=== PATIENT | male | born 1960 | race Caucasian/White ===

== ENCOUNTER 2019-09-27 06:12 | Inpatient (IN) | payer OTHER, MEDICARE ==
[~2019-09-27] VITALS: Ht 193 cm; Wt 168.7 kg
[~2019-09-27 06:12] MED LIST: ALDACTONE100 MG PO; ALLO300 PO; ASPI325EC PO; ATOR40TA PO; CARV25 PO; FOLI1 PO; LACT10SY PO; LOSA25 PO; LOSHYD100 PO; MORP15ER PO; NISO10ER; OMEP20ER; PANT20 PO; PREG25 PO; PROP10 PO; STIOLTO RESPIMAT4 GM INH; THERA-D2000 UNIT PO; TRAZ100; Ventolin/Prove6.7 GM INH; Vitamin B-121000 MCG PO
[2019-09-27 06:59] LABS: BASOPHILS ABSOLUTE AUTO 0.04 K/mm3 (0.00-0.23); BASOPHILS PERCENT AUTO 1 % (0-2); EOSINOPHILS ABSOLUTE AUTO 0.02 K/mm3 (0.00-0.68); EOSINOPHILS PERCENT AUTO 0 % (0-6); Hemoglobin 8.7 g/dL (13.5-17.5); IMMATURE GRAN ABSOLUTE AUTO 0.04 K/mm3 (0.00-0.10); IMMATURE GRAN PERCENT AUTO 1 % (0-1); LYMPHOCYTES ABSOLUTE AUTO 0.45 K/mm3 (0.84-5.20); LYMPHOCYTES PERCENT AUTO 6 % (21-46); MONOCYTES ABSOLUTE AUTO 0.89 K/mm3 (0.16-1.47); MONOCYTES PERCENT AUTO 13 % (4-13); Mean Corpuscular HGB 31.4 pg (26.0-34.0); Mean Corpuscular HGB Conc 32.2 g/dL (31.5-36.5); Mean Corpuscular Volume 98 fL (80-100); Mean Platelet Volume 9.1 fL (9.1-12.4); NEUTROPHILS ABSOLUTE AUTO 5.61 K/mm3 (1.96-9.15); NEUTROPHILS PERCENT AUTO 80 % (41-73); Platelet Count 227 K/mm3 (150-400); RDW Coefficient Variation 15.6 % (11.7-14.2); RDW Standard Deviation 55.5 fL (35.1-46.3); Red Blood Cell Count 2.77 M/mm3 (4.30-5.90); White Blood Cell Count 7.05 K/mm3 (4.00-11.30)
[2019-09-27 07:05] LABS: Source, Urine Clean Catch
[2019-09-27 07:10] LABS: Blood, Urine Neg (Neg); Glucose Qualitative, Urine Neg (Neg); Ketones, Urine 1+ (Neg); Leukocyte Esterase, Urine 1+ (Neg); Nitrite, Urine Neg (Neg); Protein, Urine Neg (Neg); Urobilinogen, Urine 1+ (Normal)
[2019-09-27 07:20] LABS: Alanine Aminotransfer (ALT/SGP 28 U/L (12-78); Albumin, Blood 2.7 g/dL (3.4-5.0); Albumin/Globulin Ratio 0.5 (0.8-1.8); Alk Phos 166 U/L (50-136); Anion Gap 13 mmol/L (6-16); Aspartate Aminotrans (AST/SGOT 104 U/L (12-37); Blood Urea Nitrogen 62 mg/dL (8-24); Bun/Creatinine Ratio 28.8 (12.0-20.0); CO2, Blood 14 mmol/L (21-32); Calcium, Blood 8.8 mg/dL (8.5-10.1); Chloride, Blood 105 mmol/L (98-108); Creatinine, Blood 2.15 mg/dL (0.60-1.20); Globulin, Blood 5.9 g/dL (2.2-4.0); Glomerular Filtration Rate 34 (60-); Glucose, Blood 94 mg/dL (70-99); Potassium, Blood 5.4 mmol/L (3.5-5.5); Sodium, Blood 132 mmol/L (136-145); Total Protein, Blood 8.6 g/dL (6.4-8.2); Troponin I <0.015 ng/mL (0.000-0.040)
[2019-09-27 07:22] LABS: Appearance, Urine Hazy (Clear); Bilirubin, Urine 1+ (Neg); Color, Urine Yellow (P-Yellow)
[2019-09-27 07:24] LABS: Red Blood Cells, Urine 0-2 /hpf (0-2)
[2019-09-27 07:25] LABS: Bacteria Many /hpf; Squamous Epithelial Cells Mod /hpf (Few)
[2019-09-27 08:13] LABS: PCO2 Arterial 31.3 mmHg (35-45); PO2 Arterial 67.7 mmHg (80-100); pH Blood Arterial 7.31 (7.35-7.45)
[2019-09-27 08:44] LABS: U Amphetamine Screen Not Detected; U Barbituate Screen Not Detected; U Benzodiazapine Screen Not Detected; U Buprenorphine Screen Not Detected; U Cannabinoids Screen Not Detected; U Cocaine Screen Not Detected; U Methadone Screen Not Detected; U Methamphetamine Screen Not Detected; U Opiates Screen DETECTED; U Oxycodone Screen Not Detected; U Phencyclidine Screen Not Detected; U Propoxyphene Screen Not Detected
[2019-09-27 11:01] LABS: International Normalized Ratio 1.13
--- NOTE | 2019-09-27 11:24 | NUR ---
NOTIFIED BY SALES AND MARKETING ASSISTANT THAT PT TO BE ADMITTED TO ICU 16 PCU STATUS. REPORT RECEIVED FROM AUDREY VICENTE IN ER.
[2019-09-27] MEDS ORDERED: ALBU90OI INH (14:05)
[2019-09-27] MEDS ORDERED: BIOTENE MOIST44.3 ML MT (14:07)
[2019-09-27] MEDS ORDERED: ARTIFICIAL TEA1 EACH BOTHEYES (14:09)
[2019-09-27] MEDS ORDERED: LC-445 GM (14:12)
[2019-09-27] MEDS ORDERED: MORP15ER PO (14:13)
[2019-09-27] MEDS ORDERED: OMEP20ER PO (14:15)
[2019-09-27] MEDS ORDERED: POTA10T PO (14:15)
[2019-09-27] MEDS ORDERED: B-1100 M1 PO (14:17)
[2019-09-27] MEDS ORDERED: TORSE20 PO (14:18)
[2019-09-27] MEDS ORDERED: Loratadine10 MG PO (14:20)
[2019-09-27] MEDS ORDERED: PYRI100 PO (14:20)
[2019-09-27] MEDS ORDERED: ASPI81CH PO (14:21)
[2019-09-27] MEDS ORDERED: ALBU3IS INH (15:05)
[2019-09-27] MEDS ORDERED: K-Dur 20 meq T20 MEQ PO (15:21)
[2019-09-27] MEDS ORDERED: STRIVERDI RESPIM4 GM INH (15:34)
[2019-09-27] MEDS ORDERED: NARCAN4 MG (15:36)
[2019-09-27] MEDS ORDERED: CYCL10 PO (15:37)
[2019-09-27] MEDS ORDERED: BIOTENE1000 ML PO (15:37)
--- NOTE | 2019-09-27 15:48 | NUR ---
ARRIVAL TO ICU PT ARRIVED TO ICU 11 APPROXIMATELY 1150. PT AWAKE, TALKATIVE BUT SLURRING WORDS. PT MAKING JOKES, LAUGHING. UNSURE OF DATE BUT KNOWS HIS NAME, WHERE HE IS AT AND IS FOLLOWING DIRECTIONS. PT IS POOR HISTORIAN AND IS NOT ABLE TO PROVIDE CONCRETE AND CONSISTENT ANSWERS TO QUESTIONS. PT DOES REPORT PAIN, BUT AFTER INITIAL STIMULATION OF TRANSFERRING TO BED AND GETTING PT SETTLED, PT MORE DIFFICULT TO AROUSE, AND QUICKLY FALLS ASLEEP WHEN ASKED QUESTIONS. PT LESS INTERACTIVE. HR 60'S-80'S. BP BORDERLINE, BUT IMPROVES WHEN PT STIMULATED. PT AFEBRILE. RR 12-20'S, 02 SAT 90'S ON ROOM AIR. PT DOES DESATURATE TO UPPER 80'S ON OCCASION WHEN SLEEPING. SEE FLOWSHEET/ASSESSMENTS. VERBAL CONSENT RECEIVED TO TAKE PHOTOS, PHOTOS OF WOUNDS TAKEN. PT'S MOTHER TO BEDSIDE. VERBAL CONSENT TO PROVIDE UPDATE. PT'S MOTHER, SARINA, PROVIDED PT'S MEDICATION LIST AND EXPLAINED THAT HE HASN'T TAKEN ANY OF HIS MEDS SINCE YESTERDAY AFTERNOON, AND THAT LAST NIGHT HE WAS UP ALL NIGHT AND APPEARED TO BE HALLUCINATING THROUGHOUT THE NIGHT. SARINA UNSURE OF PT'S MEDICAL HISTORY OTHER THAN HE HAS BEEN ADMITTED MULTIPLE TIMES IN THE LAST SIX MONTHS TO [facility] IN [place] FOR LEG SWELLING. RECORDS OBTAINED. MEDICATIONS UPDATED PER CO RECORDS IT IS MORE RECENT THAN PT'S MOTHER'S LIST. ADMISSION HISTORY COMPLETED BASED ON CO RECORDS.
[2019-09-27 16:59] LABS: Albumin, Blood 2.4 g/dL (3.4-5.0); Anion Gap 7 mmol/L (6-16); Blood Urea Nitrogen 62 mg/dL (8-24); Bun/Creatinine Ratio 32.8 (12.0-20.0); CO2, Blood 17 mmol/L (21-32); Calcium, Blood 8.4 mg/dL (8.5-10.1); Chloride, Blood 110 mmol/L (98-108); Creatinine, Blood 1.89 mg/dL (0.60-1.20); Glomerular Filtration Rate 39 (60-); Glucose, Blood 89 mg/dL (70-99); Phosphorus, Blood 5.3 mg/dL (2.5-4.9); Potassium, Blood 4.5 mmol/L (3.5-5.5); Sodium, Blood 134 mmol/L (136-145)
--- NOTE | 2019-09-27 18:44 | NUR ---
SUMMARY THIS AFTERNOON, PT HAS CONTINUED TO BE SLEEPY BUT HAS BEEN MUCH EASIER TO AROUSE AND MORE INTERACTIVE WITH CARE. VITALS STABLE. PT VERBALIZING NEEDS. DIURESING WELL, SEE I/O FLOWSHEET. PT HAS HAD NO COMPLAINTS OF PAIN/DISCOMFORT THIS AFTERNOON. SEE REPEAT ASSESSMENTS.
--- NOTE | 2019-09-27 19:20 | NUR ---
REPORT TO AUDREY TANNER TO ASSUME CARE
--- NOTE | 2019-09-27 21:05 | NUR ---
ASSUMED CARE OF PT, REPORT RCV'D FROM AUDREY ROCKWELL. PT ALERT AND ORIENTED SITTING UP IN BED. PT ANSWERS QUESTIONS APPROPRIATELY. SATS>90% ON RA, PT REPORTS HE USES 1L NC AT BASELINE. LUNG SOUNDS DIM BILATERAL BASES, SHALLOW BREATHING. GENERALIZED EDEMA, 3+ PITTING/WEEPING WITH BLISTERS EDEMA BILATERAL LOWER EXTREMETIES. ABDOMEN MODERATELY DISTENDED, FIRM, NO PAIN WITH PALPATION. PT URINATING USING URINAL INDEPENDENTLY. SEE FULL SHIFT ASSESSMENT
[2019-09-28 04:02] LABS: Hematocrit 25.9 % (37.0-53.0); Hemoglobin 8.5 g/dL (13.5-17.5); Mean Corpuscular HGB 31.8 pg (26.0-34.0); Mean Corpuscular HGB Conc 32.8 g/dL (31.5-36.5); Mean Corpuscular Volume 97 fL (80-100); Mean Platelet Volume 9.2 fL (9.1-12.4); Platelet Count 197 K/mm3 (150-400); RDW Coefficient Variation 15.9 % (11.7-14.2); RDW Standard Deviation 55.8 fL (35.1-46.3); Red Blood Cell Count 2.67 M/mm3 (4.30-5.90); White Blood Cell Count 6.24 K/mm3 (4.00-11.30)
[2019-09-28 04:21] LABS: Albumin, Blood 2.6 g/dL (3.4-5.0); Albumin/Globulin Ratio 0.5 (0.8-1.8); Bilirubin, Total 0.9 mg/dL (0.1-1.0); Bun/Creatinine Ratio 39.9 (12.0-20.0); Calcium, Blood 8.7 mg/dL (8.5-10.1); Creatinine, Blood 1.43 mg/dL (0.60-1.20); Globulin, Blood 5.3 g/dL (2.2-4.0); Magnesium, Blood 2.5 mg/dL (1.6-2.4); Phosphorus, Blood 4.7 mg/dL (2.5-4.9); Potassium, Blood 4.3 mmol/L (3.5-5.5); Total Protein, Blood 7.9 g/dL (6.4-8.2)
--- NOTE | 2019-09-28 07:44 | NUR ---
CARE ASSUMED REPORT RECEIVED, CARE ASSUMED AT 0700 AFTER BEDSIDE REPORT FROM AUDREY TANNER. PT ASLEEP, AROUSES EASILY FOR ASSESSMENT. REPORTS 4/10 PAIN IN LEGS, BUT DECLINES INTERVENTION. DENIES NEEDS. VITALS STABLE. SEE ASSESSMENT/FLOWSHEET.
--- NOTE | 2019-09-28 07:46 | NUR ---
SHIFT SUMMARY NO ACUTE CHANGES OVERNIGHT. PT SLEPT WELL WITH NO COMPLAINTS. 5000 ML URINARY OUTPUT. NO SIGNS OF ALCOHOL WITHDRAWAL NOTICED. VSS T/O SHIFT. BEDSIDE REPORT GIVEN TO AUDREY ROCKWELL.
--- NOTE | 2019-09-28 08:10 | NUR ---
PROVIDER COMMUNICATION DR. FRASER TO BEDSIDE FOR ASSESSMENT. NEW ORDER FOR MEDICAL FLOOR NO TELEMETRY, HEPATIC DIET AND PAIN MEDICATION. OTHERWISE, CONTINUE WITH PLAN OF CARE.
--- NOTE | 2019-09-28 11:57 | NUR ---
UPDATE PT WORKED WITH OCCUPATIONAL THERAPY THIS MORNING AND HAS BEEN RESTING SINCE. CALLING APPROPRIATELY TO USE URINAL.
--- NOTE | 2019-09-28 17:52 | NUR ---
NOTIFIED BY JONATHAN MATTA RN THAT PT TO TRANSFER TO MEDICAL FLOOR ROOM 364. REPORT GIVEN TO AUDREY MONDRAGON ON MEDICAL FLOOR. PT SITTING UP IN BED EATING DINNER AT THIS TIME, WILL TRANSFER WHEN PT FINISHED EATING.
--- NOTE | 2019-09-28 18:45 | NUR ---
SUMMARY VITALS STABLE THROUGHOUT SHIFT. THIS MORNING, PT HAVING FREQUENT, LIQUID BOWEL MOVEMENTS. AFTERNOON AND EVENING DOSE OF LACTULOSE HELD. THIS AFTERNOON SMEARS ONLY. LARGE AMOUNT OF URINARY OUTPUT, SEE I/O FLOWSHEET. LASIX DOSE DECREASED AND CHANGED TO PO PER DR. FRASER. THROUGHOUT DAY, PT ABLE TO PARTICIPATE IN TURNS AND CLEANING. PT ATE MAJORITY OF BOTH LUNCH AND DINNER. PT CALLING APPROPRIATELY FOR NEEDS, ALERT AND IN GOOD SPIRITS THROUGHOUT THE DAY. WORKED WITH PT/OT, TOOK A FEW NAPS AND SPOKE WITH MOTHER ON PHONE. DE VOLUNTEER TO BEDSIDE TO OFFER SUPPORT. PT TRANSFERRED TO ROOM 364, AUDREY MONDRAGON AT BEDSIDE.
--- NOTE | 2019-09-28 18:45 | NUR ---
PT RECEIVED FROM MOIZ, ICU. SETTLED TO BED. 1L O2 N/C. TALKING. PLEASANT. NO OTHER CONCERNS AT THIS TIME. BED IN LOW POSITION, CALL LITE IN REACH, CALLS APPROP. BED ALARM ON FOR SAFETY.
[2019-09-29 05:29] LABS: Hematocrit 25.1 % (37.0-53.0); Hemoglobin 8.1 g/dL (13.5-17.5); Mean Corpuscular HGB 31.5 pg (26.0-34.0); Mean Corpuscular HGB Conc 32.3 g/dL (31.5-36.5); Mean Corpuscular Volume 98 fL (80-100); Mean Platelet Volume 9.5 fL (9.1-12.4); Platelet Count 210 K/mm3 (150-400); RDW Coefficient Variation 16.1 % (11.7-14.2); RDW Standard Deviation 57.1 fL (35.1-46.3); Red Blood Cell Count 2.57 M/mm3 (4.30-5.90); White Blood Cell Count 5.68 K/mm3 (4.00-11.30)
[2019-09-29 06:03] LABS: Anion Gap 7 mmol/L (6-16); Blood Urea Nitrogen 37 mg/dL (8-24); CO2, Blood 20 mmol/L (21-32); Calcium, Blood 8.9 mg/dL (8.5-10.1); Chloride, Blood 112 mmol/L (98-108); Creatinine, Blood 0.95 mg/dL (0.60-1.20); Glomerular Filtration Rate >60 (60-); Glucose, Blood 78 mg/dL (70-99); Potassium, Blood 3.9 mmol/L (3.5-5.5); Sodium, Blood 139 mmol/L (136-145)
--- NOTE | 2019-09-29 07:19 | NUR ---
NOC SHIFT SUMMARY PT IS PLEASANT AND COOPERATIVE WITH CARE. AAOX4, VSS. INCONTINENT OF BOWEL AND URINE HAD MULTIPLE BM'S LAST NIGHT. TREATED FOR PAIN PER EMAR. SLEPT ON AND OFF THROUGHT THE NIGHT. NO ACUTE CHANGES. REPORT TO ONCOMING RN.
[2019-09-29] MEDS ORDERED: IBUP800 PO (11:45)
[2019-09-29] MEDS ORDERED: LIDOCAINE5 GM TOP (11:46)
[2019-09-29] MEDS ORDERED: OMEPRAZOLE20 MG PO (11:47)
[2019-09-29] MEDS ORDERED: MIRALAX17 GM PO (11:50)
[2019-09-29] MEDS ORDERED: SALONPAS GEL-P1 EACH TD (11:53)
[2019-09-29] MEDS ORDERED: SINUS RINSE RE1 EACH (11:54)
--- NOTE | 2019-09-30 07:35 | NUR ---
NOC SHIFT SUMMARY PT IS PLEASANT AND COOPERATIVE WITH CARE. HE HAS BEEN CONTINENT OF URINE AND STOOL. TREATED FOR PAIN PER EMAR TO GOOD EFFECT. VSS. WAS ABLE TO WALK TO BATHROOM FOR BM. NO ACUTE CHANGES NOTED THIS SHIFT. APPEARS IN NO ACUTE DISTRESS. REPORT TO ONCOMING RN.
[2019-09-30] MEDS ORDERED: LACT10SY PO (14:27)
[2019-09-30] MEDS ORDERED: PROP10 PO (14:27)
--- NOTE | 2019-09-30 16:30 | NUR ---
PATIENT DISCHARGE: PATIENT DISCHARGED TO HOME/ XFR TO HOME HEALTH THIS SHIFT. MEDICATION RECONCILIATION COMPLETED; MED LIST FAXED TO [facility]. DISCHARGE EDUCATION COMPLETED WITH PATIENT. PATIENT TRASNPORTED TO EXIT BY [facility] STAFF WITH WHEELCHAIR AT 1629. PATIENT DEPARTED [facility] VIA PRIVATE AUTO.
== END 2019-09-30 16:29 | disposition home health service (06) | DRG 442 ==
LOC: ER 06:12 → MEDS 11:04 → PCU 11:04 → ICUW 11:34 → MEDS 09-28 18:33
PROVIDERS: Emergency Medicine; Internal Medicine; Nurse Practitioner Acute Care; ADMIT Internal Medicine
DX: K72.00 Acute and subacute hepatic failure without coma (principal); Z68.42 Body mass index [BMI] 45.0-49.9, adult; N17.9 Acute kidney failure, unspecified; J44.9 Chronic obstructive pulmonary disease, unspecified; F17.210 Nicotine dependence, cigarettes, uncomplicated; F10.10 Alcohol abuse, uncomplicated; F43.10 Post-traumatic stress disorder, unspecified; E66.01 Morbid (severe) obesity due to excess calories; E78.5 Hyperlipidemia, unspecified; Z99.81 Dependence on supplemental oxygen; D50.9 Iron deficiency anemia, unspecified; K74.60 Unspecified cirrhosis of liver; I10 Essential (primary) hypertension
CPT/HCPCS: 36415; 36600; 70450; 71045; 76705; 80048; 80053; 80069; 81001; 82140; 82728; 82803; 83540; 83550; 83735; 83880; 84100; 84484; 84550; 85025; 85027; 85610; 87077; 87086; 87186; 90686; 93005; 93010; 94760; 96372-59; 96374; 96375; 97116; 97162; 97166; 97530; 97535; 99285-25; C9113; J1644; J1940; J2310; J3411

== ENCOUNTER 2019-10-04 01:42 | Inpatient (IN) | payer OTHER, MEDICARE ==
[~2019-10-04] VITALS: Ht 193 cm; Wt 148.4 kg
[~2019-10-04 01:42] MED LIST changes: +ALBU3IS INH; +ALBU90OI INH; +ARTIFICIAL TEA1 EACH BOTHEYES; +ASPI81CH PO; +B-1100 M1 PO; +BIOTENE MOIST44.3 ML MT; +BIOTENE1000 ML PO; +CYCL10 PO; +IBUP800 PO; +K-Dur 20 meq T20 MEQ PO; +LC-445 GM; +LIDOCAINE5 GM TOP; +Loratadine10 MG PO; +MIRALAX17 GM PO; +NARCAN4 MG; +OMEP20ER PO; +OMEPRAZOLE20 MG PO; +POTA10T PO; +PYRI100 PO; +SALONPAS GEL-P1 EACH TD; +SINUS RINSE RE1 EACH; +STRIVERDI RESPIM4 GM INH; +TORSE20 PO
[2019-10-04 01:58] LABS: PO2 Arterial 94.8 mmHg (80-100); pH Blood Arterial 7.34 (7.35-7.45)
[2019-10-04 02:19] LABS: BASOPHILS ABSOLUTE AUTO 0.06 K/mm3 (0.00-0.23); BASOPHILS PERCENT AUTO 1 % (0-2); EOSINOPHILS ABSOLUTE AUTO 0.02 K/mm3 (0.00-0.68); EOSINOPHILS PERCENT AUTO 0 % (0-6); Hematocrit 30.2 % (37.0-53.0); Hemoglobin 9.8 g/dL (13.5-17.5); IMMATURE GRAN ABSOLUTE AUTO 0.03 K/mm3 (0.00-0.10); IMMATURE GRAN PERCENT AUTO 1 % (0-1); LYMPHOCYTES ABSOLUTE AUTO 0.44 K/mm3 (0.84-5.20); LYMPHOCYTES PERCENT AUTO 7 % (21-46); MONOCYTES ABSOLUTE AUTO 0.88 K/mm3 (0.16-1.47); MONOCYTES PERCENT AUTO 14 % (4-13); Mean Corpuscular HGB 31.3 pg (26.0-34.0); Mean Corpuscular HGB Conc 32.5 g/dL (31.5-36.5); Mean Corpuscular Volume 97 fL (80-100); Mean Platelet Volume 9.4 fL (9.1-12.4); NEUTROPHILS ABSOLUTE AUTO 5.11 K/mm3 (1.96-9.15); NEUTROPHILS PERCENT AUTO 78 % (41-73); Platelet Count 185 K/mm3 (150-400); RDW Coefficient Variation 15.4 % (11.7-14.2); RDW Standard Deviation 54.3 fL (35.1-46.3); Red Blood Cell Count 3.13 M/mm3 (4.30-5.90); White Blood Cell Count 6.54 K/mm3 (4.00-11.30)
[2019-10-04 02:39] LABS: Alanine Aminotransfer (ALT/SGP 57 U/L (12-78); Albumin/Globulin Ratio 0.5 (0.8-1.8); Alk Phos 170 U/L (50-136); Anion Gap 10 mmol/L (6-16); Aspartate Aminotrans (AST/SGOT 127 U/L (12-37); Bilirubin, Total 0.9 mg/dL (0.1-1.0); Blood Urea Nitrogen 9 mg/dL (8-24); Bun/Creatinine Ratio 12.6 (12.0-20.0); CO2, Blood 17 mmol/L (21-32); Calcium, Blood 8.5 mg/dL (8.5-10.1); Chloride, Blood 103 mmol/L (98-108); Creatinine, Blood 0.72 mg/dL (0.60-1.20); Globulin, Blood 5.9 g/dL (2.2-4.0); Glomerular Filtration Rate >60 (60-); Glucose, Blood 94 mg/dL (70-99); Sodium, Blood 130 mmol/L (136-145); Total Protein, Blood 8.9 g/dL (6.4-8.2)
[2019-10-04 04:30] LABS: Adenovirus Not Detected (NOT DETECT); Bordetella pertussis Not Detected (NOT DETECT); Chlamydophila pneumoniae Not Detected (NOT DETECT); Coronavirus 229E Not Detected (NOT DETECT); Coronavirus HKU1 Not Detected (NOT DETECT); Coronavirus NL63 Not Detected (NOT DETECT); Coronavirus OC43 Not Detected (NOT DETECT); Human Metapneumovirus Not Detected (NOT DETECT); Human Rhinovirus/Enterovirus Not Detected (NOT DETECT); Influenza A Not Detected (NOT DETECT); Influenza A/2009-H1 Not Detected (NOT DETECT); Influenza A/H1 Detected (NOT DETECT); Influenza A/H3 Not Detected (NOT DETECT); Influenza B Not Detected (NOT DETECT); Mycoplasma pneumoniae Not Detected (NOT DETECT); Parainfluenza Virus 1 Not Detected (NOT DETECT); Parainfluenza Virus 2 Not Detected (NOT DETECT); Parainfluenza Virus 3 Not Detected (NOT DETECT); Parainfluenza Virus 4 Not Detected (NOT DETECT); Respiratory Syncytial Virus Not Detected (NOT DETECT)
--- NOTE | 2019-10-04 06:00 | NUR ---
RECEIVED REPORT FROM KAITY ZIEGLER RN. PT TRANSPORTED TO PCU VIA GURNEY. APPEARS DROWSY. ABLE TO ANSWER QUESTIONS, BUT SLOW TO RESPOND R/T VOCAL HOARSNESS. REPOSITIONED FOR COMFORT, HOB ELEVATED 45 DEGREES, CALL LIGHT AND POSSESSIONS IN REACH. BED ALARM ACTIVATED.
--- NOTE | 2019-10-04 07:15 | NUR ---
PT RESTING IN BED WITH HOB ELEVATED. RT AT THE BEDSIDE FOR C/O SOB, CHEST TIGHTNESS, DYSPNEA. PT NOT TOLERATING BIPAP WELL, PLACED PT ON . 02 SATS STABLE AT THIS TIME. CALL LIGHT AND POSSESSIONS IN REACH, BED IN LOW AND LOCKED POSITION WITH BED ALARM ACTIVATED. REPORTED OFF TO AUDREY SAHA.
--- NOTE | 2019-10-04 10:05 | NUR ---
ECHOCARDIOGRAM COMPLETED
[2019-10-04 14:20] LABS: Source, Urine Clean Catch
[2019-10-04 14:25] LABS: Bilirubin, Urine Neg (Neg); Blood, Urine Neg (Neg); Glucose Qualitative, Urine Neg (Neg); Ketones, Urine Neg (Neg); Leukocyte Esterase, Urine Neg (Neg); Nitrite, Urine Neg (Neg); Protein, Urine Neg (Neg); Specific Gravity, Urine 1.015 (1.003-1.022); Urobilinogen, Urine NORM (Normal)
[2019-10-04 14:41] LABS: Appearance, Urine Clear (Clear); Color, Urine Pale Yellow (P-Yellow)
--- NOTE | 2019-10-04 16:54 | NUR ---
PCU DAYSHIFT SUMMARY PATIENT REMAINS ORIENTED TO SELF. TOWARD END OF SHIFT PATIENT DID VERBALIZE THAT HE WAS IN THE HOSPITAL. PATIENT IS VERY HOARSE AND HARD TO UNDERSTAND. PATIENT HAS SLEPT SHIFT AND AWAKES ONLY TO SOUNDS AND/OR STERNAL RUBS. PATIENT WAS ABLE TO SWALLOW PILLS WITH LOTS OF STIMULATION. PATIENT IS NOW TOLERATING BIPAP AND IS TITRATED DOWN TO 3 LPM NC WITH CONTINUOUS BIOX IN PLACE. PATIENT HAS HOWEVER DECREASED HIS HEART RATE FROM 80 BEATS PER MINUTE DOWN TO 50 BEATS PER MINUTES - DR. HAMMER AWARE. PER MD HAMMER IF PATIENT CANNOT SWALLOW ORAL MEDICATIONS SHE WOULS LIKE NG TUBE PLACED FOR ORAL MEDICATION. PATIENT REQUIRES A LOT OF STIMULATION DURING MEDICATION ADMINISTRATION. PATIENT HAS BLE EDEMA 3 + WITH LOTS OF SWELLING T/O. PATIENT ABD IS FIRM AND DISTENDED - NO NAUSEA, BOWEL MOVEMENT OR EMESIS NOTED THIS SHIFT. WILL CONTINUE TO MONITOR AND REPORT TO NOC SHIFT RN.
--- NOTE | 2019-10-04 20:42 | NUR ---
DROWSY BUT responds to voice, skin breakdown in daryl area and legs, zavala flowing with clear yellow urine, hepabrin infusing into l wrist iv at rate of 14, bipap 25%, for a 96% 02, eyes 2 and 2 brisk, ls diminished, abdm soft nontender, bt+4, overnight houseperson weak, moved hand and toes but not legs or arms, formed words but very soft voice, will continue to monitor and treat, tiffanie cardic
--- NOTE | 2019-10-04 22:32 | NUR ---
2 for CIWA will record assessment if increase in symptoms noted, currently resting quietly, rousable
--- NOTE | 2019-10-04 23:50 | NUR ---
sitting up watching tv requested snack, assessed swallow, gave pudding, stayed in rm while ate first pkg
[2019-10-05 04:12] LABS: BASOPHILS ABSOLUTE AUTO 0.01 K/mm3 (0.00-0.23); BASOPHILS PERCENT AUTO 0 % (0-2); EOSINOPHILS PERCENT AUTO 0 % (0-6); Hematocrit 27.3 % (37.0-53.0); Hemoglobin 9.1 g/dL (13.5-17.5); IMMATURE GRAN ABSOLUTE AUTO 0.06 K/mm3 (0.00-0.10); IMMATURE GRAN PERCENT AUTO 1 % (0-1); LYMPHOCYTES ABSOLUTE AUTO 0.42 K/mm3 (0.84-5.20); LYMPHOCYTES PERCENT AUTO 5 % (21-46); MONOCYTES ABSOLUTE AUTO 0.62 K/mm3 (0.16-1.47); MONOCYTES PERCENT AUTO 8 % (4-13); Mean Corpuscular HGB 31.2 pg (26.0-34.0); Mean Corpuscular HGB Conc 33.3 g/dL (31.5-36.5); NEUTROPHILS ABSOLUTE AUTO 6.72 K/mm3 (1.96-9.15); NEUTROPHILS PERCENT AUTO 86 % (41-73); Platelet Count 197 K/mm3 (150-400); RDW Coefficient Variation 15.4 % (11.7-14.2); RDW Standard Deviation 52.5 fL (35.1-46.3); Red Blood Cell Count 2.92 M/mm3 (4.30-5.90); White Blood Cell Count 7.83 K/mm3 (4.00-11.30)
[2019-10-05 04:14] LABS: Mean Corpuscular Volume 94 fL (80-100)
[2019-10-05 04:29] LABS: Anion Gap 8 mmol/L (6-16); Blood Urea Nitrogen 20 mg/dL (8-24); Bun/Creatinine Ratio 29.5 (12.0-20.0); CO2, Blood 23 mmol/L (21-32); Calcium, Blood 8.4 mg/dL (8.5-10.1); Chloride, Blood 106 mmol/L (98-108); Creatinine, Blood 0.68 mg/dL (0.60-1.20); Glomerular Filtration Rate >60 (60-); Glucose, Blood 122 mg/dL (70-99); Magnesium, Blood 1.9 mg/dL (1.6-2.4); Potassium, Blood 3.5 mmol/L (3.5-5.5); Sodium, Blood 137 mmol/L (136-145)
--- NOTE | 2019-10-05 08:14 | NUR ---
Bedside report was received from cesar Devine RN. The pt is awake, alert, cheerfully conversant, and oriented. He is asking for food. Cesar states that the pt suddenly woke up early this morning and was stating he was hungry. Awaiting speech therapist Maia who said she would be right down to do a swallow evaluation on the patient. Shun denies having any needs at this time. Just finished a breathing treatment. Tachypnea noted as well as dyspnea on exertion. He is wearing his home delivery dose of oxygen at this time, and spo2 is well into the 90s range at rest. Villasenor catheter was dc'd this morning, and the patient states he is glad. States he wants to walk into the bathroom later for a BM. Asked that he not get up on his own, but wait for a staff member when he is ready to assist him as well as assess his mobility and safety. He states that he has numbness on the bottoms of his feet and has fallen a lot of times at home.
--- NOTE | 2019-10-05 10:03 | NUR ---
Ambulatory with the use of the walker and gait belt with staff assistance to the bathroom to void and have a bowel movement. AFterwards he is sitting up in the chair, and states that he feels pretty good. Mild dyspnea noted with the activity of walking to the bathroom, but overall he tolerated it very well, and appears to have good strength for movement.
--- NOTE | 2019-10-05 11:09 | NUR ---
The pt is requesting back to bed after sitting up in his chair for quite some time, at least 1 hour. He states that his feet are starting to hurt. Able to stand up and transfer using the walker, with minimal assistance. Mild dyspnea noted with the activity.
--- NOTE | 2019-10-05 14:04 | NUR ---
heparin drip discontinued at this time.
--- NOTE | 2019-10-05 17:11 | NUR ---
SUMMARY The pt has been alert, oriented, cooperative and ambulatory to the bathroom and up to the chair with mild dyspnea. Frequent, moist but non productive cough throughout the day. He is on his home dose of oxgyen today with no increased oxygen needs, nor any need to use the bipap for rescue. Appetite has been good
--- NOTE | 2019-10-05 20:17 | NUR ---
A+O, PERRL, 4 4, clear lung sounds, hr 65 nsr, abdm soft non tender, bt+4q, using urinal but walking with walker to bathroom, legs red, heels blistered and painful, scabs on both feet, o2 at 2.5 via nc, flushed 22g l wrst, and pg on r arm, vss, back and feet still painful, nonproducive cough
--- NOTE | 2019-10-06 06:17 | NUR ---
a+o, sitting up in bed watching tv, medicated and treated as prescribed, lots of snacks, nsr in 70's, walking to bathroom on own, call light in via nc at 3 L, saline locked, no adverse changes noted during shift, looking forward to going home to a snf, will share bsr with day staff and pt
--- NOTE | 2019-10-06 07:20 | NUR ---
called dr christopher r/consult for gi bleed, left message with service
[2019-10-06] MEDS ORDERED: BIOTENE MOIST44.3 ML MM (09:14)
[2019-10-06] MEDS ORDERED: FOLI1 PO (09:15)
[2019-10-06] MEDS ORDERED: Nicoderm Cq1 EAC1 TOP (09:17)
[2019-10-06] MEDS ORDERED: OSEL75CA PO ×2 (09:19→09:28)
[2019-10-06] MEDS ORDERED: Prednisone10 MG PO (09:20)
--- NOTE | 2019-10-06 09:49 | NUR ---
PT HAS ASKED TO SPEAK TO THIS RN ABOUT HER MEDICATIONS, PT IS SLEEPING WHEN CHECKED IN ON TWICE
--- NOTE | 2019-10-06 10:35 | NUR ---
PT OTD WITH ALL BELONGINGS WITH PT,PT EXPRESSED UNDERSTANDING OF DC TEACHING
== END 2019-10-06 10:40 | disposition home health service (06) | DRG 189 ==
LOC: ER 01:42 → PCU 04:59
PROVIDERS: Emergency Medicine; Internal Medicine; ADMIT Family Medicine
PROC: 5A09357 Assistance with Respiratory Ventilation, Less than 24 Consecutive Hours, Continuous Positive Airway Pressure (ICD-10-PCS; principal; 2019-10-04)
DX: J96.21 Acute and chronic respiratory failure with hypoxia (principal); I50.33 Acute on chronic diastolic (congestive) heart failure; J44.1 Chronic obstructive pulmonary disease with (acute) exacerbation; E87.2 Acidosis; E87.1 Hypo-osmolality and hyponatremia; J10.1 Influenza due to other identified influenza virus with other respiratory manifestations; I11.0 Hypertensive heart disease with heart failure; E66.01 Morbid (severe) obesity due to excess calories; F10.10 Alcohol abuse, uncomplicated; Z99.81 Dependence on supplemental oxygen; R79.89 Other specified abnormal findings of blood chemistry; F17.210 Nicotine dependence, cigarettes, uncomplicated
CPT/HCPCS: 0099U; 36415; 36416; 36600; 51702; 71045; 71260; 80048; 80053; 81003; 82803; 83735; 83880; 84484; 85025; 85730; 90686; 92610; 93005; 93010; 93306; 94640; 94660; 94760; 94762; 96374; 96375; 97116; 97162; 97165; 97535; 99285-25; A9270; C1751; G0008; J1644; J1650; J2920; J2930; Q9967

== ENCOUNTER 2020-03-14 13:27 | Inpatient (IN) | payer OTHER, MEDICARE ==
[~2020-03-14] VITALS: Ht 190.5 cm; Wt 158.8 kg
[~2020-03-14 13:27] MED LIST changes: +ALDACTONE100 M1 PO; +B-121000 MC3 PO; +BIOTENE MOIST44.3 ML MM; +CAMPHOR/MENTHOL TOP; +CARV6.25; +Klor-Con 1010 MEQ PO; +LIDOCAINE HCL120 GM TOP; +LOSARTAN POTAS100 MG PO; +MS Contin15 MG PO; +Nicoderm Cq1 EAC1 TOP; +OSEL75CA PO; +Prednisone10 MG PO; +Protonix40 M1 PO; +RIFA550T2 PO; +SERT50 PO; +VITAMIN D-32000 UNIT PO
[2020-03-14 15:03] LABS: Alanine Aminotransfer (ALT/SGP 41 U/L (12-78); Albumin, Blood 1.9 g/dL (3.4-5.0); Albumin/Globulin Ratio 0.4 (0.8-1.8); Alk Phos 111 U/L (50-136); Anion Gap 9 mmol/L (6-16); Aspartate Aminotrans (AST/SGOT 102 U/L (12-37); Bilirubin, Total 1.9 mg/dL (0.1-1.0); Blood Urea Nitrogen 14 mg/dL (8-24); Bun/Creatinine Ratio 16.4 (12.0-20.0); CO2, Blood 20 mmol/L (21-32); Calcium, Blood 8.3 mg/dL (8.5-10.1); Chloride, Blood 108 mmol/L (98-108); Creatinine, Blood 0.86 mg/dL (0.60-1.20); Globulin, Blood 5.3 g/dL (2.2-4.0); Glomerular Filtration Rate >60 (60-); Glucose, Blood 102 mg/dL (70-99); Potassium, Blood 3.4 mmol/L (3.5-5.5); Sodium, Blood 137 mmol/L (136-145); Total Protein, Blood 7.2 g/dL (6.4-8.2)
[2020-03-14 15:15] LABS: BASOPHILS ABSOLUTE AUTO 0.05 K/mm3 (0.00-0.23); BASOPHILS PERCENT AUTO 1 % (0-2); EOSINOPHILS ABSOLUTE AUTO 0.46 K/mm3 (0.00-0.68); EOSINOPHILS PERCENT AUTO 4 % (0-6); Hematocrit 24.8 % (37.0-53.0); Hemoglobin 7.6 g/dL (13.5-17.5); IMMATURE GRAN ABSOLUTE AUTO 0.06 K/mm3 (0.00-0.10); IMMATURE GRAN PERCENT AUTO 1 % (0-1); LYMPHOCYTES ABSOLUTE AUTO 0.88 K/mm3 (0.84-5.20); LYMPHOCYTES PERCENT AUTO 8 % (21-46); MONOCYTES ABSOLUTE AUTO 1.18 K/mm3 (0.16-1.47); MONOCYTES PERCENT AUTO 11 % (4-13); Mean Corpuscular HGB 27.4 pg (26.0-34.0); Mean Corpuscular HGB Conc 30.6 g/dL (31.5-36.5); Mean Corpuscular Volume 90 fL (80-100); Mean Platelet Volume 9.9 fL (9.1-12.4); NEUTROPHILS ABSOLUTE AUTO 7.83 K/mm3 (1.96-9.15); NEUTROPHILS PERCENT AUTO 75 % (41-73); Platelet Count 172 K/mm3 (150-400); RDW Coefficient Variation 23.3 % (11.7-14.2); RDW Standard Deviation 75.7 fL (35.1-46.3); Red Blood Cell Count 2.77 M/mm3 (4.30-5.90); White Blood Cell Count 10.46 K/mm3 (4.00-11.30)
--- NOTE | 2020-03-14 17:37 | NUR ---
ATTEMPT TO GET REPORT FROM E.R.
[2020-03-14 18:16] LABS: Percent Saturation 12.1 % (20.0-50.0)
--- NOTE | 2020-03-14 19:15 | NUR ---
PATIENT ARRIVES 1800 VIA CART. ROLLED TO REMOVED XTRA LINEN AND NOTED WOUNDS TO BUTTOCK AND POSTERIOR THIGHS. SMELLS AND LOOKS LIKE GANGERENE. ASKED CHANGE NURSE TO CALL SO SHE COULD LOOK AT IT. PICTURES TAKEN BUTTOCK, BILATERAL ELBOWS AND RT HEEL WHICH ALSO HAS BLACKENED SKIN. ORDERS SURGEON AND PODIATRY CONSULT. RESIDENT W/ COMES IN. ALSO COMES IN TO SEE PATIENT. PATIENT GIVEN LACTULOSE FOR SOMULENCE. PER OK TO PUT IN RECTAL TUBE IF PATIENT HAS EXCESSIVE LIQUID STOOL. REPORT GIVEN TO NIGHT RN.
--- NOTE | 2020-03-14 20:36 | NUR ---
PT off floor to xray. Neg for covid 19 rapid screen. Room air, lung soungs coarse throughout. PT obtunded does rouse to voice & able to say he is at Hospital. Multiple draining wounds rt le weeping rt heel ulcer. Cleanse site with karacleanse & applied foam dressing. Oral suction set up to maintain patent airway. [facility] PT not service connected. ETOH screen negative. HAs elevated C reactive protein. H & H low 7.6 24.8. Bilirubin elevated 1.9. Dr Maude Franklin consulted. NPO due to decreased LOC. Order to insert rectal tube due to rectal buttock wounds & lactulose to treat liver disease. PT unable to verify meds or give history. Printed problem list which include morbid obesity toxic encephalopathy & cirrhosis, impaired mobility & function. HAs PT OT eval Pallative care consult.
[2020-03-14] MEDS ORDERED: [UNRECOGNIZED DRUG - OTHER] PO (22:38)
[2020-03-14] MEDS ORDERED: LACT10SY PO (22:39)
[2020-03-14] MEDS ORDERED: Nicoderm Cq1 EAC1 TOP (22:40)
[2020-03-14] MEDS ORDERED: LIDOCAINE HCL120 GM TOP (22:40)
[2020-03-14] MEDS ORDERED: STRIVERDI RESPIM4 G1 INH (22:41)
[2020-03-14] MEDS ORDERED: ALDACTONE100 MG PO (22:42)
--- NOTE | 2020-03-15 04:35 | NUR ---
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 severely obtunded beginning of shift now more alert & talking. PT says he smokes 1 PPD tobacco & consumes ETOH daily despite cirrhosis. CIWA neg. He is on home oxygen 2 l & has PUSHPA but says he CPAP is not working , missing parts. He is max assist of 2 to 3 for toileting & bed mobility. IV lasix given late due to concern of moisute to severly damaged perianal skin. He did use urinal & voided large amts. Photodoc done on skin damage & he required skin care multiple times to complex wounds. Dr Maude Nunez consulted yesterday, attempted to reach pod. consult without success. Unable to verify home meds, faxed [facility] to obtain current med list. Oral meds held due to being severely decreased loc. Rectal tube was inserted & drains liquid brown stool. Covid test rapid negative. Applied oxygen 2 l nc, PT did not bring home CPAP
[2020-03-15 05:57] LABS: BASOPHILS ABSOLUTE AUTO 0.05 K/mm3 (0.00-0.23); BASOPHILS PERCENT AUTO 1 % (0-2); EOSINOPHILS ABSOLUTE AUTO 0.81 K/mm3 (0.00-0.68); EOSINOPHILS PERCENT AUTO 8 % (0-6); Hematocrit 29.6 % (37.0-53.0); IMMATURE GRAN ABSOLUTE AUTO 0.04 K/mm3 (0.00-0.10); IMMATURE GRAN PERCENT AUTO 0 % (0-1); LYMPHOCYTES ABSOLUTE AUTO 0.71 K/mm3 (0.84-5.20); LYMPHOCYTES PERCENT AUTO 7 % (21-46); MONOCYTES ABSOLUTE AUTO 0.72 K/mm3 (0.16-1.47); MONOCYTES PERCENT AUTO 7 % (4-13); Mean Corpuscular HGB 27.1 pg (26.0-34.0); Mean Corpuscular HGB Conc 30.4 g/dL (31.5-36.5); Mean Corpuscular Volume 89 fL (80-100); Mean Platelet Volume 9.6 fL (9.1-12.4); NEUTROPHILS ABSOLUTE AUTO 7.55 K/mm3 (1.96-9.15); NEUTROPHILS PERCENT AUTO 76 % (41-73); Platelet Count 196 K/mm3 (150-400); RDW Standard Deviation 74.7 fL (35.1-46.3); Red Blood Cell Count 3.32 M/mm3 (4.30-5.90); White Blood Cell Count 9.88 K/mm3 (4.00-11.30)
[2020-03-15 06:07] LABS: International Normalized Ratio 1.33
[2020-03-15 06:25] LABS: Anion Gap 9 mmol/L (6-16); Blood Urea Nitrogen 14 mg/dL (8-24); CO2, Blood 22 mmol/L (21-32); Calcium, Blood 8.3 mg/dL (8.5-10.1); Chloride, Blood 108 mmol/L (98-108); Creatinine, Blood 0.78 mg/dL (0.60-1.20); Glomerular Filtration Rate >60 (60-); Glucose, Blood 81 mg/dL (70-99); Sodium, Blood 139 mmol/L (136-145)
--- NOTE | 2020-03-15 09:03 | NUR ---
DR ZHENG CAME TO SEE THE PT- ORDER RECIEVED FOR CONDOM CATH. PT TO GO TO SURGERY THIS MORNING DR HAS ONE PT PRIOR TO HIM SO BEFORE LUNCH IS EXPECTED.
--- NOTE | 2020-03-15 09:57 | NUR ---
History, Chart, Medications and Allergies reviewed before start of procedure. Patient confirms NPO status and agrees with scheduled surgery. Pre-Op teaching done. Pt verbalizes understanding. PT WITH SLIGHT EXP WHEEZES. PT HAS CONDOM CATH AND RECTAL TUBE. C/O PAIN ALL OVER.
--- NOTE | 2020-03-15 12:45 | NUR ---
PT RETURNED FROM PROCEDURE STILL VERY GROGGY CONDOM CATH PATENT AND DRAINING YELLOW URINE, RECTAL TUBE STILL IN PLACE, WOUND VAC IN PLACE AND DRAINING, NC IN PLACE. PER REPORT FROM TOILET ATTENDANT PT PLACED ON 2L VIA NC D/T SATS DROPPING TO 88%. VITALS STABLE ON ARRIVAL SAT 98%.
--- NOTE | 2020-03-15 12:55 | NUR ---
PT O2 NOT IN PLACE. PLACED O2 AND TITRATED, CHECKED O2 SATS 78-80%. PT STILL VERY GROGGY. CALLED RT AND SPOKE TO SALLIE (RT). SHE CAME TO SEE THE PT O2 TITRATED TO 5L VIA NC TO MAINTAIN SATS ABOVE 90%. RECIEVED IN REPORT THIS MORNING THE PT HAS A CPAP MACHINE AT HOME, HE HAS NOT BEEN USING IT DUE TO MISSING PARTS. CALLED DR BOOTH AND RECIEVED ORDER FOR CPAP AND CONT BIOX. PLACED ORDER AND CALLED RT SALLIE, SHE CAME AND SET UP THE CPAP.
--- NOTE | 2020-03-15 13:30 | NUR ---
PT ON CPAP 5L BLEED IN SATS MAINTAINING AT 90-93%. NO S&S OF DISTRESS. WILL CTM.
--- NOTE | 2020-03-15 19:58 | NUR ---
SHIFT SUMMARY- PT WOKE AT AROUND 1700 AND WAS REFUSING HIS CPAP. GIS GEOGRAPHER CALLED FOR ASSISTANCE. PT BIOX READING IN THE 60'S PT HAD REMOVED IT AND IT WAS IN HIS PALM. PLACED ON O2 VIA NC AT 5L. PT WANTED A DRINK OF WATER. WHEN LOOKING INTO HIS THROAT IT WAS NOTED THAT THERE WAS THICK MUCUS TINGED WITH BLOOD, ORAL CARE PROVIDED AND WHEN THE BACK OF THE PT THROAT WAS SWABBED HE WAS NOTED TO NOT HAVE A GAG REFLEX. SPOKE TO DR BOOTH, SWALLOW EVAL ORDERED, NO NPO ORDER AT THIS TIME. PER DR COLEMAN TO GIVE MEDS AND FOOD IF PT IS ALERT. WHILE PT WAS ALERT GAVE HIM A SMALL CUP OF ROOM TEMPERATURE WATER WITH NO STRAW AND HE COUGHED SEVERAL TIMES AFTER EACH DRINK. THIS RN IS CONCERNED FOR RISK OF ASPIRATION. NO MORE PO OFFERED. PT WAS ROLLED AND CHANGED JUST PRIOR TO SHIFT CHANGE AND HIS SADLER (PLACED IN DAY SURGERY) WAS PATENT AND DRAINING. CALLED DR BOOTH AND RECIEVED A VERBAL ORDER TO LEAVE THE SADLER IN PLACE FOR THE PURPOSE OF WOUND HEALING. RECTAL TUBE IN PLACE NO OUTPUT. PT MAY NEED LACTULOSE ENEMA NIGHT RN AWARE OF ALL OF TODAYS EVENTS. WOUND VAC IN PLACE PATENT AND DRAINING A LITTLE SEROSANGUINOUS FLUID. PT DENIED THE NEED FOR PAIN MEDICATION UNTIL CHANGE OF SHIFT. PT WAS YELLING OUT FOR HIS "LITTLE BLUE PILL" PT STATED HE TAKES PO MORPHINE AT HOME. IV FENTANYL ORDERED Q3 PRN FOR PAIN AT THIS TIME. PASSED ALL ON IN BEDSIDE REPORT TO NIGHT RN
--- NOTE | 2020-03-15 20:17 | NUR ---
CALLED LAB PT HAD RAPID COVID TEST AT 1844 ANOTHER ORDERED PRE PROCEDURE TODAY AT 1030 LESS THAN 12 HOURS LATER OK TO DC DUPLICATE ORDER.
--- NOTE | 2020-03-15 21:39 | NUR ---
PT CURRENTLY NPO PENDING SWALLOWING STUDY VIA SPEECH THERAPY AM; Brandi FONTANEZ, DIRECT CHILL CASTER NOTIFIED WITH ORDERS FOR LR AT 100ML/HR; Brandi FONTANEZ ADVISED LOW GRADE TEMPERATURE 101.0 EARLIER AT 1999 AND CURRENT TEMPERATURE 100.3 VIA ORAL THEROMETER.
--- NOTE | 2020-03-16 02:06 | NUR ---
03/15/202044 PTS NOTED TO BE HAVING LOOSE BROWN DIARRHEA AROUND RECTAL TUBE; RECTAL TUBE BALLOON DEFLATED AND REINFLATED SLOWED BY CECIL CABALLERO RN, CHARGE NURSE WITH NO FURTHER ISSUES NOTED; THIS NURSE REINFORCED DRESSING AROUND OUTER EDGES OF WOUND VAV AT COCCYX WITH NO SUCTION LOST (125MG/HG INTERMITTENT SUCTION NOTED INTACT); PT NPO FOR THIS SHIFT PENDING SWALLOW EVALUATION IN AM; ALERT AND ORIENTED X 3 AND ABLE TO FOLLOW SIMPLE VERBAL COMMANDS.
--- NOTE | 2020-03-16 04:45 | NUR ---
SHIFT SUMMARY: 59 Y/O MORBID OBESE MALE HAD RESTLESS 1/2 SHIFT; PT C/O COCCYX WOUND PAIN RATED 8/10 WITH FENTANYL 50MG IVP X 3 GIVEN WITH RELIEF FELT; PTS WOUND VAC WAS REPLACED BY THIS NURSE AFTER ENTIRE DRESSING WAS SOILED FROM LOOSE STOOL AROUND DRESSING EDGES (NO STOOL ENTERED WOUND BED); SEE PREVIOUS NURSING NOTES REGARDING WOUND VAC; SADLER DRAINING CLEAR YELLOW FLUID; PT ALERT AND ORIENTED X 4; PT DECLINED TO WEAR C/PAP THIS SHIFT WITH O2 AT 2L/M PER NASAL CANNULA WORN ALL SHIFT; PTS RECTAL TUBE INTACT DRAINING SCANT LIQUID BROWN STOOL; PT CURRENTLY NPO PENDING SWALLOW EVALUATION TODAY VIA SPEECH THERAPY; BED ALARM APPLIED; BED LOW POSITION WITH CALL LIGHT AT SIDE.
[2020-03-16 05:45] LABS: BASOPHILS ABSOLUTE AUTO 0.02 K/mm3 (0.00-0.23); BASOPHILS PERCENT AUTO 0 % (0-2); EOSINOPHILS PERCENT AUTO 0 % (0-6); Hematocrit 25.9 % (37.0-53.0); Hemoglobin 7.9 g/dL (13.5-17.5); IMMATURE GRAN ABSOLUTE AUTO 0.04 K/mm3 (0.00-0.10); IMMATURE GRAN PERCENT AUTO 0 % (0-1); LYMPHOCYTES ABSOLUTE AUTO 0.89 K/mm3 (0.84-5.20); LYMPHOCYTES PERCENT AUTO 10 % (21-46); MONOCYTES ABSOLUTE AUTO 0.89 K/mm3 (0.16-1.47); MONOCYTES PERCENT AUTO 10 % (4-13); Mean Corpuscular HGB 27.1 pg (26.0-34.0); Mean Corpuscular HGB Conc 30.5 g/dL (31.5-36.5); Mean Corpuscular Volume 89 fL (80-100); Mean Platelet Volume 9.9 fL (9.1-12.4); NEUTROPHILS ABSOLUTE AUTO 7.53 K/mm3 (1.96-9.15); NEUTROPHILS PERCENT AUTO 80 % (41-73); Platelet Count 195 K/mm3 (150-400); RDW Coefficient Variation 23.2 % (11.7-14.2); RDW Standard Deviation 73.5 fL (35.1-46.3); Red Blood Cell Count 2.91 M/mm3 (4.30-5.90); White Blood Cell Count 9.37 K/mm3 (4.00-11.30)
[2020-03-16 06:08] LABS: Alanine Aminotransfer (ALT/SGP 39 U/L (12-78); Albumin, Blood 1.7 g/dL (3.4-5.0); Albumin/Globulin Ratio 0.3 (0.8-1.8); Alk Phos 126 U/L (50-136); Anion Gap 7 mmol/L (6-16); Aspartate Aminotrans (AST/SGOT 86 U/L (12-37); Bilirubin, Total 1.6 mg/dL (0.1-1.0); Blood Urea Nitrogen 16 mg/dL (8-24); Bun/Creatinine Ratio 20.8 (12.0-20.0); CO2, Blood 24 mmol/L (21-32); Chloride, Blood 111 mmol/L (98-108); Creatinine, Blood 0.77 mg/dL (0.60-1.20); Globulin, Blood 5.3 g/dL (2.2-4.0); Glomerular Filtration Rate >60 (60-); Glucose, Blood 89 mg/dL (70-99); Sodium, Blood 142 mmol/L (136-145)
--- NOTE | 2020-03-16 19:19 | NUR ---
SHIFT SUMMARY- PT HAS BEEN ALERT AND ORIENTED TO SELF, PERSON AND PLACE. PT RECTAL TUBE WAS CHANGED ABOUT MID DAY THE PREVIOUS ONE WAS CLOGGED WITH PASTY STOOL. SPOKE TO DR BOOTH AND SHE IS AWARE AND THEY STILL WANT THE RECTAL TUBE IN PLACE. TUBE CONTINUED TO LEAK AND CAUSE THE NEED FOR WOUND VAC CHANGES, CALLED DR ZHENG HE STATED OK TO PLACE A WET TO DRY DRESSING HOWEVER THE PT WOULD BENIFIT FAR MORE FROM A WOUND VAC WITH A GOOD SEAL IF IT WAS POSSIBLE. FOUND THAT FREQUENT IRRIGATION OF THE RECTAL TUBE ALLOWED FOR LESS LEAKAGE AND MORE OUTPUT FROM THE RECTAL TUBE, NEARLY 2.5 LITERS OF STOOL OUT SINCE TUBE WAS CHANGED. FLUSHING 150 ML PER FLUSH APPROXIMATELY EVERY 30 MINUTES. SEEMS THAT FLUSHES COULD BE SPACED OUT FARTHER HOWEVER THE RESULT OF A CLOGGED RECTAL TUBE MADE FOR A STOOL MESS THAT CAN NOT BE DESCRIBED IN WORDS. STAFF SPENT THE FIRST 5 HOURS OF THE DAY IN THE ROOM DOING BED CHANGES, WOUND VAC CHANGES, RECTAL TUBE CHANGES AND FLUSHES. PT STOOL IS THINNING DOWN HOWEVER IT IS STILL PASTY AT TIMES. CHANGED THE RECTAL TUBE BAG AND FLUSHED THE TUBE WITH THE ASSISTANCE OF NIGHT RN. PT LAYING ON RIGHT SIDE RECTAL TUBE PATENT AND DRAINING BROWN STOOL. SADLER CATH IN PLACE PATENT AND DRAINING YELLOW URINE. IV SL AT THIS TIME. PT HAD A SWALLOW EVAL ALLOWING FOR PILLS WHOLE WITH APPLE SAUCE. NO THIN LIQUIDS!
--- NOTE | 2020-03-16 23:40 | NUR ---
2215 PTS ENTIRE WOUND DRESSING REPLACED WITH WET TO DRY DRESSING AND HELD IN PLACE WITH HOSPITAL MESH PANTIES X 3 ASSIST; RECTAL TUBE IRRIGATED WITH 200 ML TAP WATER WITH BROWN FLUID NOTED IN BAG
--- NOTE | 2020-03-17 03:30 | NUR ---
SHIFT SUMMARY: 59 Y/O OBESE MALE RESTED COMFORTABLY ALL SHIFT; PTS RECTAL TUBE DRAINING LIQUID BROWN STOOL (THIS NURSE IRRIGATED TUBE Q2H WITH 200ML WARM TAP WATER) WITH DECREASED LEAKAGE NOTED AROUND TUBE INSERTION SITE AT ANUS; PTS COCCYX WOUND CURRENTLY HAS WET TO DRY DRESSING PACKING WITH MESH PANTIES HOLDING DRESSING INTACT; PTS SKIN SURROUNDING WOUND IS RED AND EXCORIATED; PT HAD EPISODE X 1 WHERE PATIENT WAS FOUND SITTING SIDE OF BED AFTER BED ALARM SOUNDED OFF AND WAS SLIGHTLY CONFUSED AND UNABLE TO FIGURE OUT WHERE HE WAS AT, PT WAS REORIENTATED AND ASSISTED BACK TO BED X 2 ASSIST; PT C/O COCCYX WOUND PAIN RATED 8/10 WITH FENTANYL 50MCG IVP GIVEN X 2 WITH RELIEF FELT; SADLER DRAINING CLEAR YELLOW FLUID ATTACHED TO RIGHT UPPER THIGH STAT LOCK; PT WEARING O2 AT 2L/M PER NASAL CANNULA WITH CONTINUOUS BIOX O2 SATS AVERAGING 94%; PTS RIGHT HEEL WOUND DRESSING DRY AND INTACT; BED ALARM APPLIED, BED LOW POSITION WITH CALL LIGHT AT SIDE.
[2020-03-17 05:07] LABS: BASOPHILS ABSOLUTE AUTO 0.05 K/mm3 (0.00-0.23); BASOPHILS PERCENT AUTO 1 % (0-2); EOSINOPHILS ABSOLUTE AUTO 0.27 K/mm3 (0.00-0.68); EOSINOPHILS PERCENT AUTO 3 % (0-6); Hematocrit 26.9 % (37.0-53.0); Hemoglobin 8.1 g/dL (13.5-17.5); IMMATURE GRAN ABSOLUTE AUTO 0.03 K/mm3 (0.00-0.10); IMMATURE GRAN PERCENT AUTO 0 % (0-1); LYMPHOCYTES ABSOLUTE AUTO 1.03 K/mm3 (0.84-5.20); LYMPHOCYTES PERCENT AUTO 13 % (21-46); MONOCYTES ABSOLUTE AUTO 0.95 K/mm3 (0.16-1.47); MONOCYTES PERCENT AUTO 12 % (4-13); Mean Corpuscular HGB 27.2 pg (26.0-34.0); Mean Corpuscular HGB Conc 30.1 g/dL (31.5-36.5); Mean Corpuscular Volume 90 fL (80-100); NEUTROPHILS ABSOLUTE AUTO 5.81 K/mm3 (1.96-9.15); NEUTROPHILS PERCENT AUTO 71 % (41-73); Platelet Count 196 K/mm3 (150-400); RDW Coefficient Variation 23.5 % (11.7-14.2); RDW Standard Deviation 76.8 fL (35.1-46.3); Red Blood Cell Count 2.98 M/mm3 (4.30-5.90); White Blood Cell Count 8.14 K/mm3 (4.00-11.30)
[2020-03-17 09:58] LABS: Anion Gap 6 mmol/L (6-16); Blood Urea Nitrogen 14 mg/dL (8-24); Bun/Creatinine Ratio 18.6 (12.0-20.0); CO2, Blood 29 mmol/L (21-32); Calcium, Blood 8.3 mg/dL (8.5-10.1); Chloride, Blood 110 mmol/L (98-108); Creatinine, Blood 0.75 mg/dL (0.60-1.20); Glomerular Filtration Rate >60 (60-); Glucose, Blood 84 mg/dL (70-99); Potassium, Blood 2.8 mmol/L (3.5-5.5); Sodium, Blood 145 mmol/L (136-145)
--- NOTE | 2020-03-17 16:45 | NUR ---
SHIFT SUMMARY PATIENT MEDICATED X3 FOR PAIN THIS SHIFT. PATIENT DENIES NAUSEA AND SHORTNESS OF BREATH. PATIENT WORKED WITH PT TODAY, ABLE TO STAND BRIEFLY AND SIT ON SIDE OF BED. PATIENT REQUIRES 2-3 STAFF FOR WOUND CARE AND BED REPOSITION. WOUND VAC REPLACED BY AYANA RN EARLY THIS MORNING. WOUND VAC REPLACED AGAIN BY DAY SHIFT AFTER BREAKFAST. WOUND VAC FAILED AGAIN IN LATE AFTERNOON. DRESSING REPLACED WITH WET TO DRY DRESSING. SADLER AND RECTAL TUBE PATENT AND DRAINING. CALL LIGHT IN REACH.
--- NOTE | 2020-03-18 04:47 | NUR ---
SHIFT SUMMARY PT HAS RESTED OFF AND ON. HE IS A/O TO SELF, PLACE, PERSON, PRESIDENT AND FOLLOWING DIRECTIONS. UNABLE TO TELL ME THE YEAR. HOWEVER, ANSWERS ALL OF MY OTHER QUESTIONS APPROPRIATELY. RECTAL TUBE IN PLACE WITH ADEQUATE OUTPUT. LACTULOSE CONTINUED PER ORDERS. SADLER PATENT AND DRAINING. PT HAS INTENSE THRIST AND HAS REQUESTED SEVERAL CUPS OF THICKNED LIQUIDS THIS SHIFT. WOUND CARE PERFORMED THIS SHIFT ON PT COCCYX AND RIGHT HEEL. COCCYX PRODUCES LARGE AMOUNTS OF SEROSANGUINEOUS DRAINAGE. WET TO DRY DRESSING PLACED. PT MEDICATED FOR PAIN X2 THIS SHIFT WITH EFFECT. NO ACUTE CHANGES IN PT ASSESSMENT.
[2020-03-18 05:54] LABS: Anion Gap 6 mmol/L (6-16); Blood Urea Nitrogen 11 mg/dL (8-24); Bun/Creatinine Ratio 15.4 (12.0-20.0); CO2, Blood 29 mmol/L (21-32); Calcium, Blood 8.4 mg/dL (8.5-10.1); Chloride, Blood 109 mmol/L (98-108); Creatinine, Blood 0.72 mg/dL (0.60-1.20); Glomerular Filtration Rate >60 (60-); Glucose, Blood 97 mg/dL (70-99); Sodium, Blood 144 mmol/L (136-145)
--- NOTE | 2020-03-18 17:20 | NUR ---
SHIFT SUMMARY PATIENT MEDICATED X2 FOR PAIN THIS SHIFT. DENIES NAUSEA AND SHORTNESS OF BREATH. PATIENT REPOSITIONED Q2 IN BED AND FOR DRESSING CHANGES. COCCYX DRESSING CHANGED X2 THIS SHIFT AND RIGHT HEEL X1. RECTAL TUBE AND SADLER PATENT AND DRAINING. CALL LIGHT IN REACH.
--- NOTE | 2020-03-19 05:05 | NUR ---
SHIFT SUMMARY PT HAS RESTED OFF AND ON THIS SHIFT. CHANGED DRESSING ON COCCYX X1 THIS SHIFT. PT REPOSITIONED FREQUENTLY T/O SHIFT. VITALS ARE STABLE. RECTAL TUBE AND SADLER PATENT AND DRAINING. NO ACUTE CHANGES THIS SHIFT.
[2020-03-19 05:55] LABS: Anion Gap 4 mmol/L (6-16); Blood Urea Nitrogen 10 mg/dL (8-24); Bun/Creatinine Ratio 14.4 (12.0-20.0); CO2, Blood 31 mmol/L (21-32); Chloride, Blood 101 mmol/L (98-108); Creatinine, Blood 0.69 mg/dL (0.60-1.20); Glomerular Filtration Rate >60 (60-); Glucose, Blood 96 mg/dL (70-99); Magnesium, Blood 1.8 mg/dL (1.6-2.4); Potassium, Blood 3.2 mmol/L (3.5-5.5); Sodium, Blood 136 mmol/L (136-145)
--- NOTE | 2020-03-19 16:34 | NUR ---
SHIFT SUMMARY- PT HAS HAD 2 WOUND DRESSING CHANGES AND A 3RD WILL BE DONE PRIOR TO END OF SHIFT. PT WOUND LOOKS WORSE WHEN COMPARED TO END OF SHIFT THURSDAY HOWEVER IT SEEMS A LITTLE BETTER SINCE START OF SHIFT. THE PT HAS ORDERS FOR WET TO DRY DRESSINGS, WET GAUZE SHOULD BE PLACED IN THE WOUND BED OF THE DEBRIDED AREA AND COVERED WITH DRY GAUZE THEN AN ABD PAD OVER THE TOP AND SECURED WITH SOFT CLOTH TAPE (TAPE ONLY ON GOOD SKIN), EXUDRY PLACED TO WICK MOISTURE FROM THE EXCORIATED AREA OF THE LEG AROUND THE WOUND DRESSING CAN BE SECUREDTO THE EXUDRY AND THE EXUDRY CAN BE SECURED WITH SOFT CLOTH TAPE TO THE GOOD SKIN. THIS METHOD SEEMS TO BE IMPROVING THE SKIN T/O THE DAY TODAY. SPOKE TO HABILITATION TRAINING SPECIALIST SALLY AND ANOTHER RN FAMILLIAR WITH THE PT WOUNDS RN KEIKO Nicolas. PT HAS A RECTAL TUBE AT THIS TIME BUT D/T WOUND PLACEMENT THE PT WOULD POSSIBLY BENNIFIT FROM A COLOSTOMY, SPOKE TO DR RESENDIZ ABOUT THIS POSSIBILITY AND HE STATED HE WILL SPEAK TO DR ZHENG (GEN SURG). AT THIS TIME THE PT LACTULOSE IS CONTINUEING AT THE LOWER DOSE AND THE OUTPUT OF THE RECTAL TUBE IS MORE OF A THIN PASTE THAT IS OCCASSIONALLY THICKER. WILL PASS ALL OF THIS ON IN REPORT TO NIGHT RN. PT IS A Q2 TURN T/O THE DAY AND NIGHT TO PREVENT FURTHER WOUNDS.
--- NOTE | 2020-03-19 19:05 | NUR ---
ASSUMED CARE RECEIVED REPORT FROM AUDREY VELASCO. ASSUMED CARE OF PT. RESTING COMFORTABLY AT THIS TIME, NO S/S ACUTE DISTRESS NOTED. DRSGS AND RECTAL TUBE INTACT. DENIES NEEDS. CALL LIGHT, POSSESSIONS IN REACH. WILL CONTINUE TO MONITOR.
--- NOTE | 2020-03-20 04:35 | NUR ---
SHIFT SUMMARY PT RESTING COMFORTABLY AT THIS TIME, NO S/S ACUTE DISTRESS NOTED. TOLERATED CPAP FOR A FEW HOURS T/O NIGHT, SATS STABLE ON NASAL CANNULA. PAIN MANAGED WITH MEDS PER EMAR AND REPOSITIONING PT TOLERATED. DENIES NEEDS AT THIS TIME, CALL LIGHT, POSSESSIONS IN REACH. BED IN LOWEST POSITION. WILL CONTINUE TO MONITOR UNTIL DAY RN ASSUMES CARE.
[2020-03-20 05:26] LABS: Anion Gap 5 mmol/L (6-16); Blood Urea Nitrogen 10 mg/dL (8-24); Bun/Creatinine Ratio 16.4 (12.0-20.0); CO2, Blood 30 mmol/L (21-32); Calcium, Blood 7.9 mg/dL (8.5-10.1); Chloride, Blood 99 mmol/L (98-108); Creatinine, Blood 0.61 mg/dL (0.60-1.20); Glomerular Filtration Rate >60 (60-); Glucose, Blood 105 mg/dL (70-99); Potassium, Blood 3.1 mmol/L (3.5-5.5); Sodium, Blood 134 mmol/L (136-145)
--- NOTE | 2020-03-20 08:25 | NUR ---
ASSUMED CARE OF PT- REPORT COMPLETED WITH YAMILET AMBRIZ. PT WOUND DRESSING CHANGED X1 LAST NIGHT. DRESSING CHANGE COMPLETED 729 WITH AUDREY ADAM. PT REPOSITIONED TO LEFT SIDE LYING, RECTAL TUBE FLUSHED WITH 50ML WATER AND IS PATENT AND DRAINING BROWN STOOL AT THIS TIME. CATH CARE COMPLETED SOME DISCHARGE NOTED AT THE INSERTION POINT. SADLER PATENT AND DRAINING DARK URINE. PT ALERT AND COOPERATIVE WITH CARE THIS MORNING.
--- NOTE | 2020-03-20 15:24 | NUR ---
Assumed care of patient from Princess. Patient currently resting with eyes closed, resp. E/UL. No distress noted at this time. Call light in reach.
--- NOTE | 2020-03-20 18:23 | NUR ---
Patient sitting with head of bed elevated to 90 degrees, eating dinner. Denies c/o or needs at this time. Watching TV. Rectal tube has been flushed and is draining well. Dressing to buttocks C/D/I. Will report to oncoming shift.
[2020-03-21 05:26] LABS: Anion Gap 4 mmol/L (6-16); Blood Urea Nitrogen 11 mg/dL (8-24); Bun/Creatinine Ratio 18.5 (12.0-20.0); CO2, Blood 31 mmol/L (21-32); Calcium, Blood 8.1 mg/dL (8.5-10.1); Chloride, Blood 98 mmol/L (98-108); Creatinine, Blood 0.59 mg/dL (0.60-1.20); Glomerular Filtration Rate >60 (60-); Glucose, Blood 115 mg/dL (70-99); Potassium, Blood 3.2 mmol/L (3.5-5.5); Sodium, Blood 133 mmol/L (136-145)
--- NOTE | 2020-03-21 06:30 | NUR ---
PT RECTAL TUBE CHANGED D/T PRIOR RECTAL TUBE BEING PULLED AFTER PT REPOSITIONED IN BED. PT TOLERATED WELL.
[2020-03-21] MEDS ORDERED: CARV25 PO (09:17)
[2020-03-21] MEDS ORDERED: CYCL10 PO (09:19)
[2020-03-21] MEDS ORDERED: LOSA25 PO (09:22)
[2020-03-21] MEDS ORDERED: MORP15ER PO (09:23)
[2020-03-21] MEDS ORDERED: Hair, Skin & N1 EACH PO (09:24)
[2020-03-21] MEDS ORDERED: NARCAN4 M1 (09:25)
[2020-03-21] MEDS ORDERED: PANT20 PO (09:27)
[2020-03-21] MEDS ORDERED: PREG75 PO (09:28)
[2020-03-21] MEDS ORDERED: TORSE20 PO (09:29)
[2020-03-21] MEDS ORDERED: ASPI81CH PO (09:29)
--- NOTE | 2020-03-21 17:17 | NUR ---
SUMMARY PT RESTING QUIETLY IN BED, WAKES EASILY, [facility], PT HAS WORKED WITH PT/OT, ABLE TO STAND BRIEFLY AT THE BEDSIDE, PT HAS DANGLED INDEPENDENTLY SEVERAL TIMES TODAY, RECTAL TUBE IN PLACE TO KEEP COCCYX DRESSING CLEAN DRY AND INTACT, FLUSHED SEVERAL TIMES TO KEEP PATENT, PT HAS BEEN PLEASANT AND COOPERATIVE WITH CARE, VSS, NO ACUTE CHANGES, WILL CONT TO MONITOR
--- NOTE | 2020-03-22 05:02 | NUR ---
SHIFT SUMMARY- PT. VERY PAINFUL DURING THE NIGHT. MEDICATED PER EMAR WITH MINIMAL RELIEF. NOTIFIED HOSPITALIST FERN FONTANEZ SKI LIFT MECHANIC, RECEIVED ORDER FOR DILAUDID. ADMINISTERED TO PT. PER ORDER, REPORTED GOOD EFFECT. PERFORMED DSG CHANGE PER ORDER, TOLERATED WELL. PT. APPEARED TO HAVE RESTED COMFORTABLY THE REST OF THE SHIFT. NO APPARENT DISTRESS NOTED. O2 VIA NC AND BIOX IN PLACE FOR COMFORT WELL MONITORING. VSS. CALL LIGHT WITHIN REACH AND SIDE RAILS UPX2. WILL CONT TO MONITOR.
[2020-03-22 06:06] LABS: Anion Gap 4 mmol/L (6-16); Blood Urea Nitrogen 13 mg/dL (8-24); Bun/Creatinine Ratio 19.4 (12.0-20.0); CO2, Blood 33 mmol/L (21-32); Calcium, Blood 8.3 mg/dL (8.5-10.1); Chloride, Blood 98 mmol/L (98-108); Creatinine, Blood 0.67 mg/dL (0.60-1.20); Glomerular Filtration Rate >60 (60-); Glucose, Blood 97 mg/dL (70-99); Potassium, Blood 3.6 mmol/L (3.5-5.5); Sodium, Blood 135 mmol/L (136-145)
[2020-03-22] MEDS ORDERED: JUVEN PACKET1 EAC3 PO (11:00)
[2020-03-22] MEDS ORDERED: POTCHL20ER PO (11:01)
[2020-03-22] MEDS ORDERED: NYSTOP15 GM TOP (11:01)
[2020-03-22] MEDS ORDERED: ROXYBOND5 MG PO (11:02)
--- NOTE | 2020-03-22 11:16 | NUR ---
DISCHARGE PT BEING DISCHARGED TO THE [facility], TRANSPORTATION SET UP BY CARE MANAGEMENT, PT IN AGREEMENT TO GO, CURRENTLY WAITING FOR TRANSPORT
--- NOTE | 2020-03-22 11:45 | NUR ---
SUMMARY/DISCHARGE REPORT CALLED TO GREGORIO AT THE [facility], PT TAKEN VIA [facility]
== END 2020-03-22 11:40 | DRG 423 ==
LOC: ER 13:27 → ERHOLD 16:57 → MEDS 16:57
PROVIDERS: Emergency Medicine; Internal Medicine; Surgery; ADMIT Internal Medicine
PROC: 0JB70ZZ Excision of Back Subcutaneous Tissue and Fascia, Open Approach (ICD-10-PCS; principal; 2020-03-15 10:00)
PROC: 0HBMXZZ Excision of Right Foot Skin, External Approach (ICD-10-PCS; 2020-03-15 10:00)
DX: K72.00 Acute and subacute hepatic failure without coma (principal); L89.153 Pressure ulcer of sacral region, stage 3; L89.613 Pressure ulcer of right heel, stage 3; Z68.41 Body mass index [BMI] 40.0-44.9, adult; J96.11 Chronic respiratory failure with hypoxia; I96 Gangrene, not elsewhere classified; Z20.828 Contact with and (suspected) exposure to other viral communicable diseases; F17.210 Nicotine dependence, cigarettes, uncomplicated; J44.9 Chronic obstructive pulmonary disease, unspecified; I27.20 Pulmonary hypertension, unspecified; Z99.81 Dependence on supplemental oxygen; F10.20 Alcohol dependence, uncomplicated; E87.6 Hypokalemia; E66.01 Morbid (severe) obesity due to excess calories; K70.31 Alcoholic cirrhosis of liver with ascites; G47.33 Obstructive sleep apnea (adult) (pediatric); F11.90 Opioid use, unspecified, uncomplicated
CPT/HCPCS: 36415; 72220; 73620; 80048; 80053; 82140; 82607; 82728; 82746; 83540; 83550; 83605; 83735; 85025; 85610; 85651; 86140; 92526; 92610; 94640; 94660; 94762; 97110; 97112; 97162; 97166; 97530; 99285; A9270; C9113; G0480; J0690; J1100; J1170; J1940; J2250; J2370; J2405; J2550; J2704; J3010; J7120; U0002

== ENCOUNTER 2020-07-15 19:14 | Emergency (ER) | payer OTHER, MEDICARE ==
[~2020-07-15] VITALS: Ht 193 cm; Wt 122.5 kg
[~2020-07-15 19:14] MED LIST changes: +Hair, Skin & N1 EACH PO; +JUVEN PACKET1 EAC3 PO; +NARCAN4 M1; +NYSTOP15 GM TOP; +POTCHL20ER PO; +PREG75 PO; +ROXYBOND5 MG PO; +STRIVERDI RESPIM4 G1 INH; +[UNRECOGNIZED DRUG - OTHER] PO
== END 2020-07-15 20:57 | disposition home or self-care (01) ==
LOC: ER 19:14
DX: S91.312A Laceration without foreign body, left foot, initial encounter (principal); I25.10 Atherosclerotic heart disease of native coronary artery without angina pectoris; J44.9 Chronic obstructive pulmonary disease, unspecified; I11.0 Hypertensive heart disease with heart failure; I50.9 Heart failure, unspecified; E78.5 Hyperlipidemia, unspecified; F17.210 Nicotine dependence, cigarettes, uncomplicated; Z88.5 Allergy status to narcotic agent; Z79.899 Other long term (current) drug therapy; Z88.8 Allergy status to other drugs, medicaments and biological substances; Z88.6 Allergy status to analgesic agent; W26.0XXA Contact with knife, initial encounter
CPT/HCPCS: 12001; 99283-25

== ENCOUNTER 2020-10-17 12:14 | Inpatient (IN) | payer OTHER, MEDICARE ==
[~2020-10-17] VITALS: Ht 193 cm; Wt 126.8 kg
[2020-10-17 13:37] LABS: BASOPHILS ABSOLUTE AUTO 0.04 K/mm3 (0.00-0.23); BASOPHILS PERCENT AUTO 0 % (0-2); EOSINOPHILS PERCENT AUTO 0 % (0-6); Hematocrit 44.1 % (37.0-53.0); Hemoglobin 15.8 g/dL (13.5-17.5); IMMATURE GRAN ABSOLUTE AUTO 0.07 K/mm3 (0.00-0.10); IMMATURE GRAN PERCENT AUTO 1 % (0-1); LYMPHOCYTES ABSOLUTE AUTO 0.67 K/mm3 (0.84-5.20); LYMPHOCYTES PERCENT AUTO 6 % (21-46); MONOCYTES ABSOLUTE AUTO 1.52 K/mm3 (0.16-1.47); MONOCYTES PERCENT AUTO 13 % (4-13); Mean Corpuscular HGB 35.7 pg (26.0-34.0); Mean Corpuscular HGB Conc 35.8 g/dL (31.5-36.5); Mean Corpuscular Volume 100 fL (80-100); Mean Platelet Volume 9.8 fL (9.1-12.4); NEUTROPHILS ABSOLUTE AUTO 9.86 K/mm3 (1.96-9.15); NEUTROPHILS PERCENT AUTO 81 % (41-73); Platelet Count 96 K/mm3 (150-400); RDW Coefficient Variation 13.6 % (11.7-14.2); RDW Standard Deviation 50.3 fL (35.1-46.3); Red Blood Cell Count 4.42 M/mm3 (4.30-5.90); White Blood Cell Count 12.16 K/mm3 (4.00-11.30)
[2020-10-17 14:07] LABS: Alanine Aminotransfer (ALT/SGP 31 U/L (12-78); Albumin, Blood 2.8 g/dL (3.4-5.0); Albumin/Globulin Ratio 0.5 (0.8-1.8); Alk Phos 229 U/L (50-136); Anion Gap 9 mmol/L (6-16); Aspartate Aminotrans (AST/SGOT 60 U/L (12-37); Bilirubin, Total 3.6 mg/dL (0.1-1.0); Blood Urea Nitrogen 8 mg/dL (8-24); Bun/Creatinine Ratio 14.1 (12.0-20.0); CO2, Blood 24 mmol/L (21-32); Calcium, Blood 8.6 mg/dL (8.5-10.1); Chloride, Blood 102 mmol/L (98-108); Creatinine, Blood 0.57 mg/dL (0.60-1.20); Globulin, Blood 5.5 g/dL (2.2-4.0); Glomerular Filtration Rate >60 (60-); Glucose, Blood 111 mg/dL (70-99); Potassium, Blood 3.4 mmol/L (3.5-5.5); Sodium, Blood 135 mmol/L (136-145); Total Protein, Blood 8.3 g/dL (6.4-8.2); Troponin I 0.052 ng/mL (0.000-0.040)
[2020-10-17 14:31] LABS: Influenza A, PCR NEGATIVE (NEGATIVE); Influenza B, PCR NEGATIVE (NEGATIVE); Resp Syncytial Virus, PCR NEGATIVE (NEGATIVE); SARS-Cov-2 (COVID-19) PCR, MMC NEGATIVE (NEGATIVE)
[2020-10-17 15:12] LABS: PCO2 Arterial 32.1 mmHg (35-45); PO2 Arterial 81.8 mmHg (80-100); pH Blood Arterial 7.47 (7.35-7.45)
[2020-10-17 15:40] LABS: Source, Urine Clean Catch
[2020-10-17] MEDS ORDERED: ALLO300 PO (15:44)
[2020-10-17] MEDS ORDERED: FURO40 PO (15:44)
[2020-10-17] MEDS ORDERED: GENTAMICIN 0.1% TOP (15:45)
[2020-10-17] MEDS ORDERED: LORA10ER PO (15:45)
[2020-10-17] MEDS ORDERED: MORPHINE SULFAT15 M1 PO (15:46)
[2020-10-17] MEDS ORDERED: MORP15ER PO (15:46)
[2020-10-17] MEDS ORDERED: Hair, Skin & N1 EACH PO (15:46)
[2020-10-17] MEDS ORDERED: OMEP20ER PO (15:47)
[2020-10-17] MEDS ORDERED: POTA10T PO (15:47)
[2020-10-17] MEDS ORDERED: NICOTINE LOZENGE2 MG MM (15:47)
[2020-10-17] MEDS ORDERED: PROP120ER PO (15:48)
[2020-10-17 15:52] LABS: Appearance, Urine Clear (Clear); Blood, Urine 3+ (Neg); Color, Urine Amber (P-Yellow); Glucose Qualitative, Urine Neg (Neg); Ketones, Urine 2+ (Neg); Leukocyte Esterase, Urine 1+ (Neg); Nitrite, Urine Neg (Neg); Protein, Urine 3+ (Neg); Specific Gravity, Urine 1.015 (1.003-1.022); Urobilinogen, Urine 3+ (Normal); pH, Urine 6.5 (5.0-8.0)
[2020-10-17 16:02] LABS: Bilirubin, Urine 2+ (Neg)
[2020-10-17 16:03] LABS: Bacteria Few /hpf; Squamous Epithelial Cells Few /hpf (Few)
--- NOTE | 2020-10-17 18:40 | NUR ---
TRANSFER TO PCU: PATIENT TRANSFERED FROM ER TO PCU AT 1710 VIA STRETCHER. ABLE TO STAND AND MOVE FROM STRETCHER TO BED. SADLER CATH IN PLACE DRAINING TO GRAVITY CLEAR, FABBY URINE. ON 6L O2 VIA NASAL CANNULA SATING ABOVE 92%. BIPAP ON STANDY AT BEDSIDE. VITAL SIGNS STABLE. PT COMPLAINS OF CHRONIC PAIN, MORPHINE SCHEDULED VIA EMAR. BILATERAL LOWER EXTREMITIES SEVERE EDEMA WITH WOUND CARE BANDAGES THAT PATIENT STATES HAVE BEEN ON FEET FOR "TWO WEEKS". BANDAGES REMOVED. COCCYX WOUND NOTED ON ADMISSION. PT STATES HE HAS BEEN DEALING WITH IT A LONG TIME. PICTURES TO BE TAKEN AND PLACED IN CHART. PT EXPLAINED STORY OF BEING IN [facility] FOR "3 MONTHS BECAUSE OF THE WOUND ON MY BUTT". PT STATES HE SEE WOUND CARE FOR HELP AND HIS MOM HELPS HIM AT HOME. LUNGS SOUND COARSE WITH CRACKLES. FULL LIQUID DIET. TELE SHOWING SINUS TACH WITH HR 110. CALL LIGHT IN REACH. EDUCATED ON FALL PREVENTION, ROOM AND HOW TO USE CALL LIGHT. BED IN LOW LOCKED POSITION. WILL CONTINUE TO MONITOR AND REPORT OFF.
[2020-10-18 04:49] LABS: Alanine Aminotransfer (ALT/SGP 23 U/L (12-78); Albumin, Blood 2.3 g/dL (3.4-5.0); Albumin/Globulin Ratio 0.5 (0.8-1.8); Alk Phos 189 U/L (50-136); Anion Gap 9 mmol/L (6-16); Aspartate Aminotrans (AST/SGOT 50 U/L (12-37); Bilirubin, Total 4.5 mg/dL (0.1-1.0); Blood Urea Nitrogen 13 mg/dL (8-24); Bun/Creatinine Ratio 20.2 (12.0-20.0); CO2, Blood 26 mmol/L (21-32); Calcium, Blood 8.1 mg/dL (8.5-10.1); Chloride, Blood 99 mmol/L (98-108); Creatinine, Blood 0.64 mg/dL (0.60-1.20); Glomerular Filtration Rate >60 (60-); Glucose, Blood 103 mg/dL (70-99); Magnesium, Blood 1.4 mg/dL (1.6-2.4); Potassium, Blood 2.9 mmol/L (3.5-5.5); Sodium, Blood 134 mmol/L (136-145); Total Protein, Blood 7.3 g/dL (6.4-8.2)
[2020-10-18 05:37] LABS: BASOPHILS ABSOLUTE AUTO 0.04 K/mm3 (0.00-0.23); BASOPHILS PERCENT AUTO 0 % (0-2); EOSINOPHILS PERCENT AUTO 0 % (0-6); Hematocrit 42.7 % (37.0-53.0); Hemoglobin 15.5 g/dL (13.5-17.5); IMMATURE GRAN ABSOLUTE AUTO 0.09 K/mm3 (0.00-0.10); IMMATURE GRAN PERCENT AUTO 1 % (0-1); LYMPHOCYTES PERCENT AUTO 5 % (21-46); MONOCYTES ABSOLUTE AUTO 1.39 K/mm3 (0.16-1.47); MONOCYTES PERCENT AUTO 11 % (4-13); Mean Corpuscular HGB 35.7 pg (26.0-34.0); Mean Corpuscular HGB Conc 36.3 g/dL (31.5-36.5); Mean Corpuscular Volume 98 fL (80-100); Mean Platelet Volume 9.9 fL (9.1-12.4); NEUTROPHILS ABSOLUTE AUTO 10.29 K/mm3 (1.96-9.15); NEUTROPHILS PERCENT AUTO 83 % (41-73); Platelet Count 81 K/mm3 (150-400); RDW Coefficient Variation 13.6 % (11.7-14.2); RDW Standard Deviation 49.5 fL (35.1-46.3); Red Blood Cell Count 4.34 M/mm3 (4.30-5.90); White Blood Cell Count 12.41 K/mm3 (4.00-11.30)
--- NOTE | 2020-10-18 05:51 | NUR ---
SHIFT SUMMARY PT RESTED WELL THROUGH NIGHT. ALERT AND ORIENTED - ABLE TO MAKE NEEDS KNOWN. TELE NSR. SATS >90% ON 6LNC - DID NOT USE BIPAP ALL NIGHT. SADLER IN PLACE FOR ACCURATE I/O MEASUREMENTS - SEE I/O FLOWCHART. NO BM. WOUND CARE AND MEPILEX PLACED ON R BUTTOCK WOUND. VSS. AM LABS SHOW TROP TRENDING UP, K 2.9 - NOTIFIED MD - SEE ORDERS FOR INSTRUCITON. VSS. CALL LIGHT WITHIN REACH, BED IN LOWEST POSITION. WILL CONTINUE TO MONITOR.
--- NOTE | 2020-10-18 08:15 | NUR ---
pt laying in bed awake a/ox3, cooperative with care, follows commands well, states he has pain in his collar bone where he fell at home, lungs are course with ins/exp wheezing, he reports he always feels sob, currently on 5 liters 02 via n/c, no cough noted, but reports cough, hrr, tele in place running sr to st per monitor, see strip, 3+ edema noted to b/l le, pt says is going down, was much bigger, iv site is clear and patent, btx4 abd large soft nontender, zavala cath draining maribeth urine, skin has several wounds, one to left le, one to buttocks, maew, slow movements, nancy, wants to get up to br for a bm this am, got him up with a gate belt, and walker, reports he uses a cane at home, did well, just slow and was able to walk into the bathroom with walker, instructed to pull call light when finished.
--- NOTE | 2020-10-18 19:16 | NUR ---
PT HAS BEEN IRRITABLE THIS AFTERNOON, BUT BETTER THIS EVENING. HE WAS UPSET ABOUT THE LACTULOSE, WENT FOR A CHEST CT VIA WHEELCHAIR. IS NOT EATING WELL, STATES THE FOOD DOESN'T TASTE GOOD. NO FURTHER CHANGES, CALL LIGHT IN REACH.
[2020-10-19 04:14] LABS: BASOPHILS ABSOLUTE AUTO 0.05 K/mm3 (0.00-0.23); BASOPHILS PERCENT AUTO 1 % (0-2); EOSINOPHILS ABSOLUTE AUTO 0.03 K/mm3 (0.00-0.68); EOSINOPHILS PERCENT AUTO 0 % (0-6); IMMATURE GRAN ABSOLUTE AUTO 0.04 K/mm3 (0.00-0.10); IMMATURE GRAN PERCENT AUTO 0 % (0-1); LYMPHOCYTES PERCENT AUTO 9 % (21-46); MONOCYTES ABSOLUTE AUTO 1.02 K/mm3 (0.16-1.47); MONOCYTES PERCENT AUTO 11 % (4-13); Mean Corpuscular HGB 35.8 pg (26.0-34.0); Mean Corpuscular HGB Conc 35.7 g/dL (31.5-36.5); Mean Corpuscular Volume 100 fL (80-100); NEUTROPHILS ABSOLUTE AUTO 7.36 K/mm3 (1.96-9.15); NEUTROPHILS PERCENT AUTO 79 % (41-73); Platelet Count 91 K/mm3 (150-400); RDW Coefficient Variation 13.7 % (11.7-14.2); RDW Standard Deviation 50.4 fL (35.1-46.3); Red Blood Cell Count 4.19 M/mm3 (4.30-5.90)
[2020-10-19 04:32] LABS: Alanine Aminotransfer (ALT/SGP 27 U/L (12-78); Albumin, Blood 2.2 g/dL (3.4-5.0); Albumin/Globulin Ratio 0.5 (0.8-1.8); Alk Phos 171 U/L (50-136); Anion Gap 7 mmol/L (6-16); Aspartate Aminotrans (AST/SGOT 69 U/L (12-37); Bilirubin, Total 3.7 mg/dL (0.1-1.0); Blood Urea Nitrogen 17 mg/dL (8-24); Bun/Creatinine Ratio 25.1 (12.0-20.0); CO2, Blood 27 mmol/L (21-32); Calcium, Blood 8.3 mg/dL (8.5-10.1); Chloride, Blood 100 mmol/L (98-108); Creatinine, Blood 0.68 mg/dL (0.60-1.20); Globulin, Blood 4.8 g/dL (2.2-4.0); Glomerular Filtration Rate >60 (60-); Glucose, Blood 105 mg/dL (70-99); Potassium, Blood 2.7 mmol/L (3.5-5.5); Sodium, Blood 134 mmol/L (136-145)
--- NOTE | 2020-10-19 05:33 | NUR ---
ROBOTIC MAINTENANCE TECHNICIAN SUMMARY PT HAD 3 LIQUID BOWEL MOVEMENTS THIS SHIFT AND HAD GREAT URINE OUTPUT WELL. PT HAS MAITAINED O2 SATS >92% ON 6L NC HOWEVER WHEN HE WAS AWOKEN BY THE EDITOR INDEX HE DEVELOPED WHAT HE DESCRIBED SOB AND CHEST PAIN BUT HE WASNT SURE IF IT WAS ANY DIFFERENT FROM THE PAIN HE HAD BEEN HAVING FROM INJURING HIS COLLAR BONE. UPON AUSCALTATION RHONCI AND CRACKLES, PT ALSO CONVERTED INTO A-FLUTTER IN THE 110'S SO THE PROVIDER WAS CONTACTED AND AN ECHO WAS ORDERED. PT REPORTED RELEIF AFTER PLACED ON HI FLOW O2. LEGS ELEVATED ALL NIGHT AND MEPILEX CHANGED ON COCCYX. VS STABLE, WCTM.
--- NOTE | 2020-10-19 10:10 | NUR ---
SPOKE WITH DR. MICHELE REGARDING PATIENT, PATIENT CONVERTED TO A FLUTTER LAST NIGHT, HEART RATE IN THE 90'S-1TEENS. PATIENT ON PROPRANALOL 60 MG PO DAILY AND THEN HOSPITALIST LAST NIGHT ORDERED METOPROLOL TARTRATE 25 MG PO BID TO START THIS AM. DR. MICHELE STATED HE AGREED TO CONTINUE WITH BOTH MEDICATIONS. STATES PATIENT WILL NEED TO BE ON ANTICOAGULANT, NOTIFY HOSPITALIST TO START ANTICOAGULANT.
--- NOTE | 2020-10-19 12:45 | NUR ---
DR. OSWALD AT BEDSIDE. DISCUSSED POC. AWARE PATIENT WENT INTO AFIB LAST NIGHT, STATES SHE WILL ORDER ANTICOAGULATION. PATIENT SHOWED HER MID UPPER CHEST, DR. OSWALD STATES IT IS MORE RED THAN PREVIOUSLY, WILL ORDER ULTRASOUND. PLAN IS TO ADJUST CARDIAC MEDICATIONS, ADJUST PAIN MEDICATIONS, AND ADD VANCO FOR MRSA IN THE BLOOD, PATIENT TO BE ON CONTACT PRECAUTIONS.
--- NOTE | 2020-10-19 12:46 | NUR ---
Echocardiogram completed.
[2020-10-19 14:28] LABS: International Normalized Ratio 1.25; Prothrombin Time Results 13.2 Sec (9.7-11.5)
--- NOTE | 2020-10-19 19:52 | NUR ---
SHIFT SUMMARY: PATIENT A/OX3. MORPHINE GIVEN FOR CHRONIC PAIN AND ACUTE PAIN IN HIS MID UPPER CHEST, PATIENT STATES THIS PAIN IS R/T A FALL, MID UPPER CHEST IS TENDER TO THE TOUCH AND IS SLIGHTLY RED. DOWN TO 4L O2 VIA NC. COUMADIN STARTED. HEART RATE IN THE 90'S - LOW 100'S. UP WITH SBA MULTIPLE TIMES TO USE BEDSIDE COMMODE. DRESSINGS CHANGED TO COCCYX AND R BUTTOCKS. ECHO AND CHEST ULTRASOUND COMPLETED. BLOOD CX POSITIVE FOR MRSA, PLACED IN CONTACT ISOLATION. REPORT GIVEN TO ONCOMING RN.
[2020-10-20 04:34] LABS: BASOPHILS ABSOLUTE AUTO 0.04 K/mm3 (0.00-0.23); BASOPHILS PERCENT AUTO 1 % (0-2); EOSINOPHILS ABSOLUTE AUTO 0.17 K/mm3 (0.00-0.68); EOSINOPHILS PERCENT AUTO 2 % (0-6); Hemoglobin 14.7 g/dL (13.5-17.5); IMMATURE GRAN ABSOLUTE AUTO 0.05 K/mm3 (0.00-0.10); IMMATURE GRAN PERCENT AUTO 1 % (0-1); LYMPHOCYTES ABSOLUTE AUTO 0.89 K/mm3 (0.84-5.20); LYMPHOCYTES PERCENT AUTO 12 % (21-46); MONOCYTES ABSOLUTE AUTO 1.12 K/mm3 (0.16-1.47); MONOCYTES PERCENT AUTO 15 % (4-13); Mean Corpuscular HGB 35.7 pg (26.0-34.0); Mean Corpuscular Volume 102 fL (80-100); Mean Platelet Volume 10.1 fL (9.1-12.4); NEUTROPHILS ABSOLUTE AUTO 5.12 K/mm3 (1.96-9.15); NEUTROPHILS PERCENT AUTO 69 % (41-73); Platelet Count 89 K/mm3 (150-400); RDW Coefficient Variation 13.6 % (11.7-14.2); RDW Standard Deviation 51.5 fL (35.1-46.3); Red Blood Cell Count 4.12 M/mm3 (4.30-5.90); White Blood Cell Count 7.39 K/mm3 (4.00-11.30)
[2020-10-20 04:54] LABS: International Normalized Ratio 1.17; Prothrombin Time Results 12.4 Sec (9.7-11.5)
[2020-10-20 05:01] LABS: Alanine Aminotransfer (ALT/SGP 33 U/L (12-78); Albumin/Globulin Ratio 0.5 (0.8-1.8); Alk Phos 166 U/L (50-136); Anion Gap 9 mmol/L (6-16); Aspartate Aminotrans (AST/SGOT 70 U/L (12-37); Bilirubin, Total 2.6 mg/dL (0.1-1.0); Blood Urea Nitrogen 16 mg/dL (8-24); Bun/Creatinine Ratio 24.6 (12.0-20.0); CO2, Blood 26 mmol/L (21-32); Calcium, Blood 8.2 mg/dL (8.5-10.1); Chloride, Blood 100 mmol/L (98-108); Creatinine, Blood 0.65 mg/dL (0.60-1.20); Globulin, Blood 4.4 g/dL (2.2-4.0); Glomerular Filtration Rate >60 (60-); Glucose, Blood 95 mg/dL (70-99); Potassium, Blood 2.6 mmol/L (3.5-5.5); Sodium, Blood 135 mmol/L (136-145); Total Protein, Blood 6.4 g/dL (6.4-8.2)
--- NOTE | 2020-10-20 05:59 | NUR ---
PATIENT ALERT AND ORIENTED. MEDICATED PER EMAR FOR PAIN. PATIENT HAD NO COMPLAINTS OF SHORTNESS OF BREATH OVERNIGHT. WOUND ON RIGHT BUTTOCK CLEANED AND NEW DRESSING APPLIED. NO ACUTE ISSUES NOTED OVERNIGHT. IV PATENT AND FLUSHED. BED IN LOWEST POSITION WITH WHEELS LOCKED AND ALARM ON. CALL LIGHT WITHIN REACH. REPORT GIVEN TO ONCOMING RN.
--- NOTE | 2020-10-20 10:13 | NUR ---
CALLED DR. FINNEY. PATIENT'S POTASSIUM THIS AM WAS 2.6. PATIENT ALREADY RECEIVED POTASSIUM 20 MEQ THIS AM, WILL ALSO RECEIVE 40 MEQ THIS AM PER DR. FINNEY'S NEW ORDERS. DR. FINNEY STATES OK TO GIVE 60 MEQ TOTAL THIS AM, ORDERED TO REDRAW BLOOD POTASSIUM AT 1130 TO CHECK POTASSIUM LEVELS.
--- NOTE | 2020-10-20 10:25 | NUR ---
DR. FINNEY AT BEDSIDE. DISCUSSED POC. PATIENT DOWN TO 2L O2 VIA NC. SHOWED DR. FINNEY PICTURES OF WOUND TO PATIENT'S R BUTTOCKS AND NOTIFIED HIM OF TWO SMALL WOUNDS TO SACRUM. DR. FINNEY ORDERED TO CLEANSE WOUNDS WITH SKINTEGRITY WOUND CLEANSER AND COVER WITH ALLEVYN DRESSING DAILY. ORDERED TO TAKE PICTURES OF REDNESS TO PATIENT'S MID UPPER CHEST. STATES PLAN IS TO CONTINUE IV ABX.
[2020-10-20 14:02] LABS: Vancomycin, Trough 12.6 ug/mL (5.0-10.0)
--- NOTE | 2020-10-20 14:27 | NUR ---
CALLED DR. FINNEY. NOTIFIED HIM PATIENT'S POTASSIUM AT 1130 WAS 2.6. ORDERS RECEIVED FOR POTASSIUM CHLORIDE 60 [address] FINNEY AWARE PATIENT WILL RECEIVE POTASSIUM CHLORIDE 40 MEQ PO TONIGHT AT 2100.
--- NOTE | 2020-10-20 20:09 | NUR ---
SHIFT SUMMARY: PATIENT A/OX3. MORPHINE GIVEN FOR PAIN WITH GOOD EFFECT. PICTURES TAKEN OF REDDENED AREA TO CHEST PER DR'S REQUEST. NOW ON ROOM AIR. UP TO CHAIR FOR MOST OF THE DAY. WORKED WITH PHYSICAL THERAPY. DRESSINGS CHANGED TO WOUNDS TO COCCYX AND RIGHT BUTTOCKS, PICTURES TAKEN FOR CHART. PLAN IS FOR POSSIBLE DISCHARGE TO [facility]. POTASSIUM IS INFUSING BUT RATE HAD TO BE DECREASED DUE TO IV PAIN. REPORT GIVEN TO ONCOMING RN.
[2020-10-21 03:45] LABS: BASOPHILS ABSOLUTE AUTO 0.06 K/mm3 (0.00-0.23); BASOPHILS PERCENT AUTO 1 % (0-2); EOSINOPHILS PERCENT AUTO 4 % (0-6); Hematocrit 42.3 % (37.0-53.0); Hemoglobin 15.2 g/dL (13.5-17.5); IMMATURE GRAN ABSOLUTE AUTO 0.06 K/mm3 (0.00-0.10); IMMATURE GRAN PERCENT AUTO 1 % (0-1); LYMPHOCYTES ABSOLUTE AUTO 0.95 K/mm3 (0.84-5.20); LYMPHOCYTES PERCENT AUTO 13 % (21-46); MONOCYTES ABSOLUTE AUTO 1.18 K/mm3 (0.16-1.47); MONOCYTES PERCENT AUTO 16 % (4-13); Mean Corpuscular HGB 35.8 pg (26.0-34.0); Mean Corpuscular HGB Conc 35.9 g/dL (31.5-36.5); Mean Corpuscular Volume 100 fL (80-100); Mean Platelet Volume 9.9 fL (9.1-12.4); NEUTROPHILS ABSOLUTE AUTO 4.82 K/mm3 (1.96-9.15); NEUTROPHILS PERCENT AUTO 65 % (41-73); Platelet Count 135 K/mm3 (150-400); RDW Coefficient Variation 13.5 % (11.7-14.2); RDW Standard Deviation 49.4 fL (35.1-46.3); Red Blood Cell Count 4.24 M/mm3 (4.30-5.90); White Blood Cell Count 7.37 K/mm3 (4.00-11.30)
[2020-10-21 03:59] LABS: International Normalized Ratio 1.23
[2020-10-21 04:06] LABS: Alanine Aminotransfer (ALT/SGP 45 U/L (12-78); Albumin, Blood 2.2 g/dL (3.4-5.0); Albumin/Globulin Ratio 0.4 (0.8-1.8); Alk Phos 201 U/L (50-136); Anion Gap 8 mmol/L (6-16); Aspartate Aminotrans (AST/SGOT 86 U/L (12-37); Bilirubin, Total 2.6 mg/dL (0.1-1.0); Blood Urea Nitrogen 13 mg/dL (8-24); Bun/Creatinine Ratio 18.3 (12.0-20.0); CO2, Blood 25 mmol/L (21-32); Calcium, Blood 8.3 mg/dL (8.5-10.1); Chloride, Blood 101 mmol/L (98-108); Creatinine, Blood 0.71 mg/dL (0.60-1.20); Globulin, Blood 4.9 g/dL (2.2-4.0); Glomerular Filtration Rate >60 (60-); Glucose, Blood 100 mg/dL (70-99); Magnesium, Blood 1.8 mg/dL (1.6-2.4); Phosphorus, Blood 2.7 mg/dL (2.5-4.9); Potassium, Blood 3.2 mmol/L (3.5-5.5); Sodium, Blood 134 mmol/L (136-145); Total Protein, Blood 7.1 g/dL (6.4-8.2)
--- NOTE | 2020-10-21 06:25 | NUR ---
SHIFT SUMMARY PATIENT ALERT AND ORIENTED X4. MEDICATED ONCE NEEDED FOR PAIN PER EMAR. PATIENT OPTED TO SLEEP IN HIS RECLINER OVERNIGHT. IV SITE IN RIGHT FOREARM BECAME RED, TENDER, AND WARM TO TOUCH. NEW IV PLACED IN LEFT FOREARM. IV IS CURRENTLY INFUSING. BRAKES LOCKED ON RECLINER. CALL LIGHT WITHIN REACH. REPORT GIVEN TO ONCOMING AUDREY.
[2020-10-21 09:32] LABS: C-REACTIVE PROTEIN, EXT RANGE 9.92 mg/dL (0.000-0.300); Uric Acid, Blood 4.5 mg/dL (3.5-7.2)
--- NOTE | 2020-10-21 17:30 | NUR ---
TRANSFER PT TRANSFERED TO ROOM 328. REPORT CALL TO IVETH VENTURA. PT IS A&O X3, ON ROOM AIR, RESP UNLABORED, VSS. BELONGINGS SENT WITH WITH PT. TRANSPORTED VIA W/C
--- NOTE | 2020-10-21 18:45 | NUR ---
RECIEVED PT FROM ICU, ALERT AND ORIENTED AND C/O PAIN 03/09, TREATED PER EMAR. PT LINE IS RUNNING AND WNL. BED IN LOW POSITION AND CALL LIGHT WITHIN REACH. STAFF WILL CONT. TO MONITOR.
--- NOTE | 2020-10-22 04:49 | NUR ---
SUMMARY PT HAD NO NEW ISSUES NOTED. PT PAIN MANAGED PER EMAR. PT HAS SLEPT OFF AND ON T/O SHIFT. PT HAD BM'S NOTED DURING SHIFT. PT CURRENTLY AWAKE IN NO DISTRESS. CALL LIGHT IN REACH.
[2020-10-22 05:41] LABS: Hematocrit 39.5 % (37.0-53.0); Mean Corpuscular HGB 35.6 pg (26.0-34.0); Mean Corpuscular HGB Conc 35.4 g/dL (31.5-36.5); Mean Corpuscular Volume 101 fL (80-100); Mean Platelet Volume 10.1 fL (9.1-12.4); Platelet Count 128 K/mm3 (150-400); RDW Coefficient Variation 13.4 % (11.7-14.2); RDW Standard Deviation 50.3 fL (35.1-46.3); Red Blood Cell Count 3.93 M/mm3 (4.30-5.90); White Blood Cell Count 5.05 K/mm3 (4.00-11.30)
[2020-10-22 05:54] LABS: International Normalized Ratio 1.25; Prothrombin Time Results 13.2 Sec (9.7-11.5)
[2020-10-22 06:06] LABS: Alanine Aminotransfer (ALT/SGP 43 U/L (12-78); Albumin, Blood 2.1 g/dL (3.4-5.0); Albumin/Globulin Ratio 0.5 (0.8-1.8); Alk Phos 197 U/L (50-136); Anion Gap 9 mmol/L (6-16); Aspartate Aminotrans (AST/SGOT 71 U/L (12-37); Bilirubin, Total 1.9 mg/dL (0.1-1.0); Blood Urea Nitrogen 11 mg/dL (8-24); Bun/Creatinine Ratio 17.1 (12.0-20.0); CO2, Blood 24 mmol/L (21-32); Calcium, Blood 8.3 mg/dL (8.5-10.1); Chloride, Blood 102 mmol/L (98-108); Creatinine, Blood 0.65 mg/dL (0.60-1.20); Globulin, Blood 4.6 g/dL (2.2-4.0); Glomerular Filtration Rate >60 (60-); Glucose, Blood 168 mg/dL (70-99); Magnesium, Blood 1.8 mg/dL (1.6-2.4); Phosphorus, Blood 2.6 mg/dL (2.5-4.9); Potassium, Blood 3.5 mmol/L (3.5-5.5); Sodium, Blood 135 mmol/L (136-145); Total Protein, Blood 6.7 g/dL (6.4-8.2)
[2020-10-22 13:30] LABS: Vancomycin, Trough 3.5 ug/mL (5.0-10.0)
--- NOTE | 2020-10-22 17:45 | NUR ---
SHIFT SUMMARY MEDICATED FOR PAIN PER EMAR. PT UP TO BSC INDEPENDENTLY THIS AFTERNOON. PT HAD LARGE LIQUID BM. PT GETTING IV LASIX AND TOLERATING WELL. SADLER PATENT AND DRAINING LARGE AMOUNTS OF URINE. PT HAS A GOOD APPETITE. NO ACUTE CHANGES THIS SHIFT. CALL LIGHT IN REACH. WILL CONTINUE TO MONITOR AND REPORT TO ONCOMING RN.
[2020-10-23 04:56] LABS: Hematocrit 39.6 % (37.0-53.0); Hemoglobin 14.2 g/dL (13.5-17.5); Mean Corpuscular HGB Conc 35.9 g/dL (31.5-36.5); Mean Corpuscular Volume 101 fL (80-100); Mean Platelet Volume 10.2 fL (9.1-12.4); Platelet Count 174 K/mm3 (150-400); RDW Coefficient Variation 13.5 % (11.7-14.2); RDW Standard Deviation 50.4 fL (35.1-46.3); Red Blood Cell Count 3.94 M/mm3 (4.30-5.90); White Blood Cell Count 7.89 K/mm3 (4.00-11.30)
[2020-10-23 05:11] LABS: International Normalized Ratio 1.62; Prothrombin Time Results 16.9 Sec (9.7-11.5)
[2020-10-23 05:20] LABS: Alanine Aminotransfer (ALT/SGP 45 U/L (12-78); Albumin, Blood 2.1 g/dL (3.4-5.0); Albumin/Globulin Ratio 0.4 (0.8-1.8); Alk Phos 204 U/L (50-136); Anion Gap 8 mmol/L (6-16); Aspartate Aminotrans (AST/SGOT 66 U/L (12-37); Bilirubin, Total 1.3 mg/dL (0.1-1.0); Blood Urea Nitrogen 12 mg/dL (8-24); Bun/Creatinine Ratio 17.4 (12.0-20.0); CO2, Blood 23 mmol/L (21-32); Calcium, Blood 8.5 mg/dL (8.5-10.1); Chloride, Blood 105 mmol/L (98-108); Creatinine, Blood 0.69 mg/dL (0.60-1.20); Globulin, Blood 4.7 g/dL (2.2-4.0); Glomerular Filtration Rate >60 (60-); Glucose, Blood 118 mg/dL (70-99); Potassium, Blood 3.4 mmol/L (3.5-5.5); Sodium, Blood 136 mmol/L (136-145); Total Protein, Blood 6.8 g/dL (6.4-8.2)
--- NOTE | 2020-10-23 05:20 | NUR ---
KEG INSPECTOR SUMMARY NO ACUTE CHANGES THIS SHIFT. PT AAOX4 AND VERY PLEASANT. CONTINUES TO DIURESE WELL WITH GOOD URINE OUTPUT. STILL SOME PITTING EDEMA NOTED IN BLE BUT PT STATES THEY ARE GREATLY IMPROVED OVER THE LAST FEW DAYS. REDNESS ON CHEST IS VERY MINIMAL AT THIS POINT AND IS MORE OF A LIGHT PINK. PT STATES IT IS TENDER AT TIMES BUT DENIES ITCHING. MEDICATED FOR PAIN X2 TONIGHT, ONCE WITH SCHEDULED MS CONTIN AND ONCE WITH PRN MORPHINE LATER THIS MORNING. VSS, WILL CONTINE TO MONITOR.
[2020-10-23 05:27] LABS: BASOPHILS ABSOLUTE MAN 0.07 K/mm3 (0.00-0.23); BASOPHILS PERCENT MAN 1 % (0-2); EOSINOPHILS PERCENT MAN 0 % (0-6); LYMPHOCYTES ABSOLUTE MAN 0.71 K/mm3 (0.84-5.20); LYMPHOCYTES PERCENT MAN 9 % (21-46); MONOCYTES ABSOLUTE MAN 0.47 K/mm3 (0.16-1.47); MONOCYTES PERCENT MAN 6 % (4-13); NEUTROPHILS ABSOLUTE MAN 6.62 K/mm3 (1.96-9.15); SEG NEUTROPHILS PERCENT MAN 84 % (41-73); TOTAL CELLS COUNTED 100
[2020-10-23] MEDS ORDERED: LOVENOX SC (12:10)
[2020-10-23] MEDS ORDERED: BACTRIM DS TAB1 EAC1 PO (12:11)
[2020-10-23] MEDS ORDERED: FURO40 PO (12:13)
[2020-10-23] MEDS ORDERED: GUAI600T33 PO (12:25)
[2020-10-23] MEDS ORDERED: LACT10SY PO (12:26)
[2020-10-23] MEDS ORDERED: FOLI1 PO (12:26)
[2020-10-23] MEDS ORDERED: SPIR50 PO (12:27)
[2020-10-23] MEDS ORDERED: PREG50 (12:27)
[2020-10-23] MEDS ORDERED: VISBIOME 112.51 EACH PO (12:28)
[2020-10-23] MEDS ORDERED: B-1100 M1 PO (12:28)
[2020-10-23] MEDS ORDERED: WARF5 PO (12:29)
[2020-10-23] MEDS ORDERED: ALBU2.5V5 INH (12:32)
[2020-10-23] MEDS ORDERED: DIPH50 PO (12:33)
[2020-10-23] MEDS ORDERED: LACT5TL TOP (12:33)
[2020-10-23 13:26] LABS: Influenza A, PCR NEGATIVE (NEGATIVE); Influenza B, PCR NEGATIVE (NEGATIVE); Resp Syncytial Virus, PCR NEGATIVE (NEGATIVE); SARS-Cov-2 (COVID-19) PCR, MMC NEGATIVE (NEGATIVE)
--- NOTE | 2020-10-23 15:19 | NUR ---
[facility] CATHETER AND IV DC @ 1300.R GLUTEAL CLEFT DRESSING CHANGED @ 1330.REPORT GIVEN TO RN AT DE. WC TRANSPORT AT 1400.
== END 2020-10-23 14:21 | DRG 871 ==
LOC: ER 12:14 → PCU 16:34 → MEDS 16:34 → PCU 17:09 → MEDS 10-21 17:46
PROVIDERS: Emergency Medicine; Family Medicine; Pharmacist; ADMIT Internal Medicine
PROC: 5A09457 Assistance with Respiratory Ventilation, 24-96 Consecutive Hours, Continuous Positive Airway Pressure (ICD-10-PCS; principal; 2020-10-17)
DX: A41.02 Sepsis due to Methicillin resistant Staphylococcus aureus (principal); I50.33 Acute on chronic diastolic (congestive) heart failure; J18.9 Pneumonia, unspecified organism; I81 Portal vein thrombosis; I24.8 Other forms of acute ischemic heart disease; K76.6 Portal hypertension; J44.0 Chronic obstructive pulmonary disease with (acute) lower respiratory infection; L02.213 Cutaneous abscess of chest wall; J44.1 Chronic obstructive pulmonary disease with (acute) exacerbation; Z20.822 Contact with and (suspected) exposure to COVID-19; L89.312 Pressure ulcer of right buttock, stage 2; I11.0 Hypertensive heart disease with heart failure; E66.01 Morbid (severe) obesity due to excess calories; E78.5 Hyperlipidemia, unspecified; I25.10 Atherosclerotic heart disease of native coronary artery without angina pectoris; K70.31 Alcoholic cirrhosis of liver with ascites; Z68.36 Body mass index [BMI] 36.0-36.9, adult; F17.210 Nicotine dependence, cigarettes, uncomplicated; M10.9 Gout, unspecified; I48.91 Unspecified atrial fibrillation; T36.8X5A Adverse effect of other systemic antibiotics, initial encounter; B19.20 Unspecified viral hepatitis C without hepatic coma; L89.159 Pressure ulcer of sacral region, unspecified stage; L27.1 Localized skin eruption due to drugs and medicaments taken internally
CPT/HCPCS: 0241U; 36415; 36600; 51702; 71045; 71260; 76604; 80053; 80202; 81001; 82140; 82803; 83605; 83735; 83880; 84100; 84132; 84145; 84443; 84484; 84550; 85007; 85025; 85027; 85610; 85651; 86140; 87040; 87077; 87086; 87147; 87186; 93005; 93010; 93306; 94640; 94660; 94762; 96374-59; 96375-59; 97110; 97116; 97161; 97530; 99285-25; A9270; J0696; J1650; J1940; J2405; J3370; J3475; J3480; J7050; J7060; J7512; Q9967

== ENCOUNTER 2020-11-13 12:19 | Emergency (ER) | payer OTHER, MEDICARE ==
[~2020-11-13] VITALS: Ht 193 cm; Wt 131.5 kg
[~2020-11-13 12:19] MED LIST changes: +ALBU2.5V5 INH; +BACTRIM DS TAB1 EAC1 PO; +DIPH50 PO; +FURO40 PO; +GENTAMICIN 0.1% TOP; +GUAI600T33 PO; +LACT5TL TOP; +LORA10ER PO; +LOVENOX SC; +MORPHINE SULFAT15 M1 PO; +NICOTINE LOZENGE2 MG MM; +PREG50; +PROP120ER PO; +SPIR50 PO; +VISBIOME 112.51 EACH PO; +WARF5 PO
[2020-11-13 13:09] LABS: BASOPHILS ABSOLUTE AUTO 0.03 K/mm3 (0.00-0.23); BASOPHILS PERCENT AUTO 1 % (0-2); EOSINOPHILS ABSOLUTE AUTO 0.16 K/mm3 (0.00-0.68); EOSINOPHILS PERCENT AUTO 3 % (0-6); Hematocrit 42.6 % (37.0-53.0); Hemoglobin 15.1 g/dL (13.5-17.5); IMMATURE GRAN ABSOLUTE AUTO 0.01 K/mm3 (0.00-0.10); IMMATURE GRAN PERCENT AUTO 0 % (0-1); LYMPHOCYTES PERCENT AUTO 15 % (21-46); MONOCYTES PERCENT AUTO 17 % (4-13); Mean Corpuscular HGB 36.7 pg (26.0-34.0); Mean Corpuscular HGB Conc 35.4 g/dL (31.5-36.5); Mean Corpuscular Volume 103 fL (80-100); Mean Platelet Volume 9.9 fL (9.1-12.4); NEUTROPHILS ABSOLUTE AUTO 3.94 K/mm3 (1.96-9.15); NEUTROPHILS PERCENT AUTO 65 % (41-73); Platelet Count 138 K/mm3 (150-400); RDW Standard Deviation 52.6 fL (35.1-46.3); Red Blood Cell Count 4.12 M/mm3 (4.30-5.90); White Blood Cell Count 6.04 K/mm3 (4.00-11.30)
[2020-11-13 13:29] LABS: Alanine Aminotransfer (ALT/SGP 21 U/L (12-78); Albumin, Blood 2.5 g/dL (3.4-5.0); Albumin/Globulin Ratio 0.4 (0.8-1.8); Alk Phos 237 U/L (50-136); Anion Gap 7 mmol/L (6-16); Aspartate Aminotrans (AST/SGOT 37 U/L (12-37); Bilirubin, Total 2.3 mg/dL (0.1-1.0); Blood Urea Nitrogen 5 mg/dL (8-24); Bun/Creatinine Ratio 8.3 (12.0-20.0); CO2, Blood 28 mmol/L (21-32); Calcium, Blood 8.3 mg/dL (8.5-10.1); Chloride, Blood 102 mmol/L (98-108); Globulin, Blood 5.6 g/dL (2.2-4.0); Glomerular Filtration Rate >60 (60-); Glucose, Blood 88 mg/dL (70-99); Potassium, Blood 2.7 mmol/L (3.5-5.5); Sodium, Blood 137 mmol/L (136-145); Total Protein, Blood 8.1 g/dL (6.4-8.2)
[2020-11-13 13:31] LABS: Source, Urine Clean Catch
[2020-11-13 13:40] LABS: Appearance, Urine Clear (Clear); Bilirubin, Urine Neg (Neg); Blood, Urine 1+ (Neg); Color, Urine Yellow (P-Yellow); Glucose Qualitative, Urine Neg (Neg); Ketones, Urine Neg (Neg); Leukocyte Esterase, Urine Neg (Neg); Nitrite, Urine Neg (Neg); Protein, Urine Neg (Neg); Urobilinogen, Urine 2+ (Normal)
[2020-11-13 13:48] LABS: Bacteria Few /hpf; Squamous Epithelial Cells Few /hpf (Few); White Blood Cells, Urine 0-2 /hpf (0-5)
[2020-11-13] MEDS ORDERED: DABI150C PO (14:08)
[2020-11-13] MEDS ORDERED: Prednisone10 MG PO (14:08)
== END 2020-11-13 20:38 | disposition short-term general hospital (02) ==
LOC: ER 12:19
PROVIDERS: Emergency Medicine
DX: L03.313 Cellulitis of chest wall (principal); M86.9 Osteomyelitis, unspecified; J98.51 Mediastinitis; Z79.899 Other long term (current) drug therapy; Z79.52 Long term (current) use of systemic steroids
CPT/HCPCS: 36415; 71045; 71260; 76604; 80053; 81001; 83735; 85025; 87040; 96365-59; 99285-25; A9270; J0690; J7030; Q9967

== ENCOUNTER 2020-11-21 | Day surgery (SDC) | payer OTHER, MEDICARE ==
[~2020-11-21] MED LIST changes: +DABI150C PO
[2020-11-21] MEDS ORDERED: Acetaminophen650 M1 PO (16:41)
[2020-11-21] MEDS ORDERED: LACT PO (16:49)
== END 2020-11-21 17:30 | disposition home or self-care (01) ==
LOC: ATC
DX: M86.9 Osteomyelitis, unspecified (principal); B95.62 Methicillin resistant Staphylococcus aureus infection as the cause of diseases classified elsewhere; J44.9 Chronic obstructive pulmonary disease, unspecified; K70.30 Alcoholic cirrhosis of liver without ascites; I81 Portal vein thrombosis; G89.4 Chronic pain syndrome; F17.210 Nicotine dependence, cigarettes, uncomplicated; I11.0 Hypertensive heart disease with heart failure; I50.33 Acute on chronic diastolic (congestive) heart failure; K21.9 Gastro-esophageal reflux disease without esophagitis; Z79.82 Long term (current) use of aspirin
CPT/HCPCS: 96365; J0878

== ENCOUNTER 2020-11-22 00:04 | Day surgery (SDC) | payer OTHER, MEDICARE ==
[~2020-11-22 00:04] MED LIST changes: +Acetaminophen650 M1 PO; +LACT PO
== END 2020-11-22 14:12 | disposition home or self-care (01) ==
LOC: ATC 00:04
DX: M86.8X8 Other osteomyelitis, other site (principal); B95.62 Methicillin resistant Staphylococcus aureus infection as the cause of diseases classified elsewhere; J44.9 Chronic obstructive pulmonary disease, unspecified; K70.30 Alcoholic cirrhosis of liver without ascites; I81 Portal vein thrombosis; I10 Essential (primary) hypertension; F17.210 Nicotine dependence, cigarettes, uncomplicated; G89.4 Chronic pain syndrome; K21.9 Gastro-esophageal reflux disease without esophagitis; I48.91 Unspecified atrial fibrillation; Z88.8 Allergy status to other drugs, medicaments and biological substances; Z88.1 Allergy status to other antibiotic agents; Z79.01 Long term (current) use of anticoagulants; Z79.82 Long term (current) use of aspirin
CPT/HCPCS: 96365; J0878

== ENCOUNTER 2020-11-23 01:58 | Day surgery (SDC) | payer OTHER, MEDICARE | END 2020-11-23 13:49 | disposition home or self-care (01) | LOC: ATC 01:58 | DX: M86.8X8 Other osteomyelitis, other site (principal); B95.62 Methicillin resistant Staphylococcus aureus infection as the cause of diseases classified elsewhere; K70.30 Alcoholic cirrhosis of liver without ascites; B18.2 Chronic viral hepatitis C; I10 Essential (primary) hypertension; F10.20 Alcohol dependence, uncomplicated; J44.9 Chronic obstructive pulmonary disease, unspecified; F17.210 Nicotine dependence, cigarettes, uncomplicated; G89.4 Chronic pain syndrome; Z79.82 Long term (current) use of aspirin; Z79.01 Long term (current) use of anticoagulants; Z95.828 Presence of other vascular implants and grafts; Z86.718 Personal history of other venous thrombosis and embolism; Z88.1 Allergy status to other antibiotic agents; Z88.5 Allergy status to narcotic agent; Z88.8 Allergy status to other drugs, medicaments and biological substances | CPT/HCPCS: 96365; J0878 ==

== ENCOUNTER 2020-11-24 00:31 | Day surgery (SDC) | payer OTHER, MEDICARE | END 2020-11-24 14:00 | disposition home or self-care (01) | LOC: ATC 00:31 | DX: M86.8X8 Other osteomyelitis, other site (principal); B95.62 Methicillin resistant Staphylococcus aureus infection as the cause of diseases classified elsewhere; J44.9 Chronic obstructive pulmonary disease, unspecified; I10 Essential (primary) hypertension; K70.31 Alcoholic cirrhosis of liver with ascites; G89.4 Chronic pain syndrome; F17.210 Nicotine dependence, cigarettes, uncomplicated; Z79.01 Long term (current) use of anticoagulants | CPT/HCPCS: 96365; J0878 ==

== ENCOUNTER 2020-11-25 00:15 | Day surgery (SDC) | payer OTHER, MEDICARE | END 2020-11-25 14:35 | disposition home or self-care (01) | LOC: ATC 00:15 | DX: M86.9 Osteomyelitis, unspecified (principal); B95.62 Methicillin resistant Staphylococcus aureus infection as the cause of diseases classified elsewhere; K70.30 Alcoholic cirrhosis of liver without ascites; B18.2 Chronic viral hepatitis C; I10 Essential (primary) hypertension; J44.9 Chronic obstructive pulmonary disease, unspecified; F10.20 Alcohol dependence, uncomplicated; F17.210 Nicotine dependence, cigarettes, uncomplicated; G89.4 Chronic pain syndrome; Z79.82 Long term (current) use of aspirin; Z79.01 Long term (current) use of anticoagulants; Z95.828 Presence of other vascular implants and grafts; Z86.718 Personal history of other venous thrombosis and embolism; Z88.1 Allergy status to other antibiotic agents; Z88.5 Allergy status to narcotic agent; Z88.8 Allergy status to other drugs, medicaments and biological substances | CPT/HCPCS: 96365; J0878 ==

== ENCOUNTER 2020-11-26 02:08 | Day surgery (SDC) | payer OTHER, MEDICARE ==
[2020-11-26 14:03] LABS: BASOPHILS ABSOLUTE AUTO 0.08 K/mm3 (0.00-0.23); BASOPHILS PERCENT AUTO 1 % (0-2); EOSINOPHILS PERCENT AUTO 3 % (0-6); Hematocrit 41.7 % (37.0-53.0); Hemoglobin 14.8 g/dL (13.5-17.5); IMMATURE GRAN ABSOLUTE AUTO 0.02 K/mm3 (0.00-0.10); IMMATURE GRAN PERCENT AUTO 0 % (0-1); LYMPHOCYTES ABSOLUTE AUTO 1.09 K/mm3 (0.84-5.20); LYMPHOCYTES PERCENT AUTO 18 % (21-46); MONOCYTES ABSOLUTE AUTO 0.68 K/mm3 (0.16-1.47); MONOCYTES PERCENT AUTO 11 % (4-13); Mean Corpuscular HGB 35.9 pg (26.0-34.0); Mean Corpuscular HGB Conc 35.5 g/dL (31.5-36.5); Mean Corpuscular Volume 101 fL (80-100); Mean Platelet Volume 9.2 fL (9.1-12.4); NEUTROPHILS ABSOLUTE AUTO 3.97 K/mm3 (1.96-9.15); NEUTROPHILS PERCENT AUTO 66 % (41-73); Platelet Count 242 K/mm3 (150-400); RDW Coefficient Variation 13.3 % (11.7-14.2); RDW Standard Deviation 49.6 fL (35.1-46.3); Red Blood Cell Count 4.12 M/mm3 (4.30-5.90); White Blood Cell Count 6.04 K/mm3 (4.00-11.30)
[2020-11-26 14:24] LABS: Alanine Aminotransfer (ALT/SGP 26 U/L (12-78); Albumin, Blood 2.6 g/dL (3.4-5.0); Albumin/Globulin Ratio 0.5 (0.8-1.8); Alk Phos 250 U/L (50-136); Anion Gap 9 mmol/L (6-16); Aspartate Aminotrans (AST/SGOT 45 U/L (12-37); Bilirubin, Total 1.3 mg/dL (0.1-1.0); Blood Urea Nitrogen 5 mg/dL (8-24); Bun/Creatinine Ratio 10.7 (12.0-20.0); CO2, Blood 25 mmol/L (21-32); CPK Creatine Kinase 54 U/L (39-308); Chloride, Blood 105 mmol/L (98-108); Creatine Kinase MB 1.4 ng/mL (0.0-3.6); Creatine Kinase MB Index 2.6 (0.0-4.0); Creatinine, Blood 0.47 mg/dL (0.60-1.20); Globulin, Blood 5.5 g/dL (2.2-4.0); Glomerular Filtration Rate >60 (60-); Glucose, Blood 114 mg/dL (70-99); Potassium, Blood 3.4 mmol/L (3.5-5.5); Sodium, Blood 139 mmol/L (136-145); Total Protein, Blood 8.1 g/dL (6.4-8.2)
== END 2020-11-26 14:35 | disposition home or self-care (01) ==
LOC: ATC 02:08
PROVIDERS: Internal Medicine Infectious Disease
DX: M86.8X8 Other osteomyelitis, other site (principal); B95.62 Methicillin resistant Staphylococcus aureus infection as the cause of diseases classified elsewhere; K70.30 Alcoholic cirrhosis of liver without ascites; I10 Essential (primary) hypertension; J44.9 Chronic obstructive pulmonary disease, unspecified; G89.4 Chronic pain syndrome; F17.210 Nicotine dependence, cigarettes, uncomplicated; Z79.82 Long term (current) use of aspirin; Z79.01 Long term (current) use of anticoagulants; Z95.828 Presence of other vascular implants and grafts; Z86.718 Personal history of other venous thrombosis and embolism; Z88.1 Allergy status to other antibiotic agents; Z88.5 Allergy status to narcotic agent; Z88.8 Allergy status to other drugs, medicaments and biological substances; Z86.19 Personal history of other infectious and parasitic diseases
CPT/HCPCS: 80053; 82550; 82553; 85025; 85651; 86140; 96365; J0878

== ENCOUNTER 2020-11-27 00:18 | Day surgery (SDC) | payer OTHER, MEDICARE | END 2020-11-27 15:20 | disposition home or self-care (01) | LOC: ATC 00:18 | DX: M86.8X8 Other osteomyelitis, other site (principal); B95.62 Methicillin resistant Staphylococcus aureus infection as the cause of diseases classified elsewhere; I10 Essential (primary) hypertension; I81 Portal vein thrombosis; K70.30 Alcoholic cirrhosis of liver without ascites; E78.49 Other hyperlipidemia; G89.4 Chronic pain syndrome; D50.9 Iron deficiency anemia, unspecified; J44.9 Chronic obstructive pulmonary disease, unspecified; K21.9 Gastro-esophageal reflux disease without esophagitis; E87.6 Hypokalemia; F17.210 Nicotine dependence, cigarettes, uncomplicated; Z88.8 Allergy status to other drugs, medicaments and biological substances; Z79.02 Long term (current) use of antithrombotics/antiplatelets; Z88.1 Allergy status to other antibiotic agents | CPT/HCPCS: 96365; J0878 ==

== ENCOUNTER 2020-11-28 00:39 | Day surgery (SDC) | payer OTHER, MEDICARE | END 2020-11-28 14:10 | disposition home or self-care (01) | LOC: ATC 00:39 | DX: M86.9 Osteomyelitis, unspecified (principal); B95.62 Methicillin resistant Staphylococcus aureus infection as the cause of diseases classified elsewhere; B19.20 Unspecified viral hepatitis C without hepatic coma; F17.210 Nicotine dependence, cigarettes, uncomplicated; K70.30 Alcoholic cirrhosis of liver without ascites; E87.6 Hypokalemia; E83.42 Hypomagnesemia; I10 Essential (primary) hypertension; K72.90 Hepatic failure, unspecified without coma; Z88.8 Allergy status to other drugs, medicaments and biological substances; Z88.5 Allergy status to narcotic agent; Z88.1 Allergy status to other antibiotic agents; Z86.79 Personal history of other diseases of the circulatory system | CPT/HCPCS: 96365; J0878 ==

== ENCOUNTER 2020-11-29 00:04 | Day surgery (SDC) | payer OTHER, MEDICARE | END 2020-11-29 14:30 | disposition home or self-care (01) | LOC: ATC 00:04 | DX: M86.8X8 Other osteomyelitis, other site (principal); B95.62 Methicillin resistant Staphylococcus aureus infection as the cause of diseases classified elsewhere; I10 Essential (primary) hypertension; I81 Portal vein thrombosis; K70.30 Alcoholic cirrhosis of liver without ascites; E78.49 Other hyperlipidemia; G89.4 Chronic pain syndrome; D50.9 Iron deficiency anemia, unspecified; J44.9 Chronic obstructive pulmonary disease, unspecified; K21.9 Gastro-esophageal reflux disease without esophagitis; E87.6 Hypokalemia; F17.210 Nicotine dependence, cigarettes, uncomplicated; Z88.5 Allergy status to narcotic agent; Z88.8 Allergy status to other drugs, medicaments and biological substances; Z88.1 Allergy status to other antibiotic agents; Z79.82 Long term (current) use of aspirin; Z79.01 Long term (current) use of anticoagulants; Z95.828 Presence of other vascular implants and grafts; Z86.718 Personal history of other venous thrombosis and embolism; Z86.19 Personal history of other infectious and parasitic diseases | CPT/HCPCS: 96365; J0878 ==

== ENCOUNTER 2020-11-30 00:20 | Day surgery (SDC) | payer OTHER, MEDICARE | END 2020-11-30 14:03 | disposition home or self-care (01) | LOC: ATC 00:20 | DX: M86.8X8 Other osteomyelitis, other site (principal); K70.30 Alcoholic cirrhosis of liver without ascites; G89.4 Chronic pain syndrome; E87.6 Hypokalemia; E83.42 Hypomagnesemia; I81 Portal vein thrombosis; R78.81 Bacteremia; F17.210 Nicotine dependence, cigarettes, uncomplicated; F10.188 Alcohol abuse with other alcohol-induced disorder; B18.2 Chronic viral hepatitis C; I11.0 Hypertensive heart disease with heart failure; I50.33 Acute on chronic diastolic (congestive) heart failure; J44.1 Chronic obstructive pulmonary disease with (acute) exacerbation; Z79.01 Long term (current) use of anticoagulants | CPT/HCPCS: 96365; J0878 ==

== ENCOUNTER 2020-12-01 00:15 | Day surgery (SDC) | payer OTHER, MEDICARE | END 2020-12-01 14:00 | disposition home or self-care (01) | LOC: ATC 00:15 | DX: M86.8X8 Other osteomyelitis, other site (principal); B95.62 Methicillin resistant Staphylococcus aureus infection as the cause of diseases classified elsewhere; I10 Essential (primary) hypertension; K70.30 Alcoholic cirrhosis of liver without ascites; I81 Portal vein thrombosis; F17.210 Nicotine dependence, cigarettes, uncomplicated; Z79.02 Long term (current) use of antithrombotics/antiplatelets | CPT/HCPCS: 96365; J0878 ==

== ENCOUNTER 2020-12-02 00:43 | Day surgery (SDC) | payer OTHER, MEDICARE | END 2020-12-02 14:13 | disposition home or self-care (01) | LOC: ATC 00:43 | DX: M86.9 Osteomyelitis, unspecified (principal); B95.62 Methicillin resistant Staphylococcus aureus infection as the cause of diseases classified elsewhere; K70.30 Alcoholic cirrhosis of liver without ascites; J44.9 Chronic obstructive pulmonary disease, unspecified; I81 Portal vein thrombosis; I10 Essential (primary) hypertension; F17.210 Nicotine dependence, cigarettes, uncomplicated; G89.4 Chronic pain syndrome; Z88.8 Allergy status to other drugs, medicaments and biological substances; Z88.5 Allergy status to narcotic agent; Z88.1 Allergy status to other antibiotic agents; Z86.19 Personal history of other infectious and parasitic diseases; Z79.01 Long term (current) use of anticoagulants | CPT/HCPCS: 96365; J0878 ==

== ENCOUNTER 2020-12-03 00:05 | Day surgery (SDC) | payer OTHER, MEDICARE ==
[2020-12-03 14:14] LABS: BASOPHILS ABSOLUTE AUTO 0.08 K/mm3 (0.00-0.23); BASOPHILS PERCENT AUTO 2 % (0-2); EOSINOPHILS ABSOLUTE AUTO 0.63 K/mm3 (0.00-0.68); EOSINOPHILS PERCENT AUTO 12 % (0-6); Hematocrit 42.8 % (37.0-53.0); Hemoglobin 15.2 g/dL (13.5-17.5); IMMATURE GRAN ABSOLUTE AUTO 0.01 K/mm3 (0.00-0.10); IMMATURE GRAN PERCENT AUTO 0 % (0-1); LYMPHOCYTES ABSOLUTE AUTO 1.52 K/mm3 (0.84-5.20); LYMPHOCYTES PERCENT AUTO 28 % (21-46); MONOCYTES ABSOLUTE AUTO 0.59 K/mm3 (0.16-1.47); MONOCYTES PERCENT AUTO 11 % (4-13); Mean Corpuscular HGB 36.3 pg (26.0-34.0); Mean Corpuscular HGB Conc 35.5 g/dL (31.5-36.5); Mean Corpuscular Volume 102 fL (80-100); Mean Platelet Volume 9.7 fL (9.1-12.4); NEUTROPHILS ABSOLUTE AUTO 2.62 K/mm3 (1.96-9.15); NEUTROPHILS PERCENT AUTO 48 % (41-73); Platelet Count 146 K/mm3 (150-400); RDW Coefficient Variation 13.6 % (11.7-14.2); RDW Standard Deviation 51.4 fL (35.1-46.3); Red Blood Cell Count 4.19 M/mm3 (4.30-5.90); White Blood Cell Count 5.45 K/mm3 (4.00-11.30)
[2020-12-03 14:37] LABS: Alanine Aminotransfer (ALT/SGP 27 U/L (12-78); Albumin, Blood 2.7 g/dL (3.4-5.0); Albumin/Globulin Ratio 0.5 (0.8-1.8); Alk Phos 259 U/L (50-136); Anion Gap 7 mmol/L (6-16); Aspartate Aminotrans (AST/SGOT 52 U/L (12-37); Bilirubin, Total 1.5 mg/dL (0.1-1.0); Blood Urea Nitrogen 7 mg/dL (8-24); Bun/Creatinine Ratio 12.5 (12.0-20.0); CO2, Blood 26 mmol/L (21-32); CPK Creatine Kinase 73 U/L (39-308); Calcium, Blood 8.4 mg/dL (8.5-10.1); Chloride, Blood 106 mmol/L (98-108); Creatine Kinase MB 1.4 ng/mL (0.0-3.6); Creatine Kinase MB Index 1.9 (0.0-4.0); Creatinine, Blood 0.56 mg/dL (0.60-1.20); Globulin, Blood 5.7 g/dL (2.2-4.0); Glomerular Filtration Rate >60 (60-); Glucose, Blood 106 mg/dL (70-99); Potassium, Blood 3.5 mmol/L (3.5-5.5); Sodium, Blood 139 mmol/L (136-145); Total Protein, Blood 8.4 g/dL (6.4-8.2)
--- NOTE | 2020-12-03 14:56 | NUR ---
LABS FROM TODAY FAXED TO DR. KATZ'S OFFICE.
== END 2020-12-03 14:19 | disposition home or self-care (01) ==
LOC: ATC 00:05
PROVIDERS: Internal Medicine Infectious Disease
DX: M86.9 Osteomyelitis, unspecified (principal); B95.62 Methicillin resistant Staphylococcus aureus infection as the cause of diseases classified elsewhere; B19.20 Unspecified viral hepatitis C without hepatic coma; K70.31 Alcoholic cirrhosis of liver with ascites; I10 Essential (primary) hypertension; G89.29 Other chronic pain; F17.210 Nicotine dependence, cigarettes, uncomplicated; Z88.1 Allergy status to other antibiotic agents; Z88.5 Allergy status to narcotic agent; Z88.8 Allergy status to other drugs, medicaments and biological substances
CPT/HCPCS: 80053; 82550; 82553; 85025; 85651; 86140; 96365; J0878

== ENCOUNTER 2020-12-04 00:13 | Day surgery (SDC) | payer OTHER, MEDICARE | END 2020-12-04 14:03 | disposition home or self-care (01) | LOC: ATC 00:13 | DX: M86.8X8 Other osteomyelitis, other site (principal); B95.62 Methicillin resistant Staphylococcus aureus infection as the cause of diseases classified elsewhere; J44.9 Chronic obstructive pulmonary disease, unspecified; I10 Essential (primary) hypertension; F17.210 Nicotine dependence, cigarettes, uncomplicated; Z88.1 Allergy status to other antibiotic agents; Z88.5 Allergy status to narcotic agent; Z88.8 Allergy status to other drugs, medicaments and biological substances | CPT/HCPCS: 96365; J0878 ==

== ENCOUNTER 2020-12-05 00:14 | Day surgery (SDC) | payer OTHER, MEDICARE | END 2020-12-05 14:05 | disposition home or self-care (01) | LOC: ATC 00:14 | DX: M86.9 Osteomyelitis, unspecified (principal); B95.62 Methicillin resistant Staphylococcus aureus infection as the cause of diseases classified elsewhere; J44.9 Chronic obstructive pulmonary disease, unspecified; I81 Portal vein thrombosis; I10 Essential (primary) hypertension; K70.30 Alcoholic cirrhosis of liver without ascites; F17.210 Nicotine dependence, cigarettes, uncomplicated; G89.4 Chronic pain syndrome; Z88.8 Allergy status to other drugs, medicaments and biological substances; Z88.5 Allergy status to narcotic agent; Z88.1 Allergy status to other antibiotic agents; Z79.01 Long term (current) use of anticoagulants; Z86.19 Personal history of other infectious and parasitic diseases | CPT/HCPCS: 96365; J0878 ==

== ENCOUNTER 2020-12-06 00:38 | Day surgery (SDC) | payer OTHER, MEDICARE | END 2020-12-06 14:22 | disposition home or self-care (01) | LOC: ATC 00:38 | DX: M86.8X8 Other osteomyelitis, other site (principal); B95.62 Methicillin resistant Staphylococcus aureus infection as the cause of diseases classified elsewhere; I10 Essential (primary) hypertension; J44.9 Chronic obstructive pulmonary disease, unspecified; F17.210 Nicotine dependence, cigarettes, uncomplicated | CPT/HCPCS: 96365; J0878 ==

== ENCOUNTER 2020-12-07 00:19 | Day surgery (SDC) | payer OTHER, MEDICARE ==
[2020-12-08] MEDS ORDERED: DAPTOMYCIN500 M3 IV (13:43)
== END 2020-12-07 14:09 | disposition home or self-care (01) ==
LOC: ATC 00:19
DX: M86.9 Osteomyelitis, unspecified (principal); B95.62 Methicillin resistant Staphylococcus aureus infection as the cause of diseases classified elsewhere; J44.9 Chronic obstructive pulmonary disease, unspecified; G89.4 Chronic pain syndrome; I81 Portal vein thrombosis; I10 Essential (primary) hypertension; K70.30 Alcoholic cirrhosis of liver without ascites; F17.210 Nicotine dependence, cigarettes, uncomplicated; Z88.8 Allergy status to other drugs, medicaments and biological substances; Z88.5 Allergy status to narcotic agent; Z88.1 Allergy status to other antibiotic agents; Z86.19 Personal history of other infectious and parasitic diseases; Z79.01 Long term (current) use of anticoagulants
CPT/HCPCS: 96365; J0878

== ENCOUNTER 2020-12-08 00:15 | Day surgery (SDC) | payer OTHER, MEDICARE ==
[2020-12-08] MEDS ORDERED: DAPTOMYCIN500 M3 IV (13:43)
== END 2020-12-08 14:10 | disposition home or self-care (01) ==
LOC: ATC 00:15
DX: M86.8X8 Other osteomyelitis, other site (principal); B95.62 Methicillin resistant Staphylococcus aureus infection as the cause of diseases classified elsewhere; J44.9 Chronic obstructive pulmonary disease, unspecified; F17.210 Nicotine dependence, cigarettes, uncomplicated; G89.4 Chronic pain syndrome; K70.30 Alcoholic cirrhosis of liver without ascites; E87.6 Hypokalemia; E83.42 Hypomagnesemia; I10 Essential (primary) hypertension; I81 Portal vein thrombosis; Z88.1 Allergy status to other antibiotic agents; Z88.5 Allergy status to narcotic agent; Z88.8 Allergy status to other drugs, medicaments and biological substances; Z86.19 Personal history of other infectious and parasitic diseases; Z79.01 Long term (current) use of anticoagulants; Z95.828 Presence of other vascular implants and grafts
CPT/HCPCS: 96365; J0878

== ENCOUNTER 2020-12-09 00:33 | Day surgery (SDC) | payer OTHER, MEDICARE ==
[~2020-12-09 00:33] MED LIST changes: +DAPTOMYCIN500 M3 IV
== END 2020-12-09 14:16 | disposition home or self-care (01) ==
LOC: ATC 00:33
DX: M86.9 Osteomyelitis, unspecified (principal); B95.62 Methicillin resistant Staphylococcus aureus infection as the cause of diseases classified elsewhere; J44.9 Chronic obstructive pulmonary disease, unspecified; I10 Essential (primary) hypertension; F17.210 Nicotine dependence, cigarettes, uncomplicated; K70.30 Alcoholic cirrhosis of liver without ascites
CPT/HCPCS: 96365; J0878

== ENCOUNTER 2020-12-10 00:30 | Day surgery (SDC) | payer OTHER, MEDICARE ==
[~2020-12-10 00:30] MED LIST changes: -GENTAMICIN 0.1% TOP; +GENTAMICIN SULF15 GM TOP
[2020-12-10 14:29] LABS: BASOPHILS ABSOLUTE AUTO 0.04 K/mm3 (0.00-0.23); BASOPHILS PERCENT AUTO 1 % (0-2); EOSINOPHILS ABSOLUTE AUTO 0.17 K/mm3 (0.00-0.68); EOSINOPHILS PERCENT AUTO 3 % (0-6); Hematocrit 43.7 % (37.0-53.0); Hemoglobin 15.6 g/dL (13.5-17.5); IMMATURE GRAN ABSOLUTE AUTO 0.01 K/mm3 (0.00-0.10); IMMATURE GRAN PERCENT AUTO 0 % (0-1); LYMPHOCYTES ABSOLUTE AUTO 0.79 K/mm3 (0.84-5.20); LYMPHOCYTES PERCENT AUTO 15 % (21-46); MONOCYTES ABSOLUTE AUTO 0.74 K/mm3 (0.16-1.47); MONOCYTES PERCENT AUTO 14 % (4-13); Mean Corpuscular HGB 36.4 pg (26.0-34.0); Mean Corpuscular HGB Conc 35.7 g/dL (31.5-36.5); Mean Corpuscular Volume 102 fL (80-100); NEUTROPHILS ABSOLUTE AUTO 3.43 K/mm3 (1.96-9.15); NEUTROPHILS PERCENT AUTO 66 % (41-73); Platelet Count 133 K/mm3 (150-400); RDW Standard Deviation 53.3 fL (35.1-46.3); Red Blood Cell Count 4.28 M/mm3 (4.30-5.90); White Blood Cell Count 5.18 K/mm3 (4.00-11.30)
[2020-12-10 14:44] LABS: Alanine Aminotransfer (ALT/SGP 24 U/L (12-78); Albumin, Blood 2.7 g/dL (3.4-5.0); Albumin/Globulin Ratio 0.5 (0.8-1.8); Alk Phos 255 U/L (50-136); Anion Gap 7 mmol/L (6-16); Aspartate Aminotrans (AST/SGOT 50 U/L (12-37); Bilirubin, Total 1.6 mg/dL (0.1-1.0); Blood Urea Nitrogen 6 mg/dL (8-24); CO2, Blood 26 mmol/L (21-32); CPK Creatine Kinase 43 U/L (39-308); Calcium, Blood 8.9 mg/dL (8.5-10.1); Chloride, Blood 107 mmol/L (98-108); Creatinine, Blood 0.55 mg/dL (0.60-1.20); Globulin, Blood 5.6 g/dL (2.2-4.0); Glomerular Filtration Rate >60 (60-); Glucose, Blood 138 mg/dL (70-99); Potassium, Blood 3.4 mmol/L (3.5-5.5); Sodium, Blood 140 mmol/L (136-145); Total Protein, Blood 8.3 g/dL (6.4-8.2)
[2020-12-10 15:04] LABS: Creatine Kinase MB <1.0 ng/mL (0.0-3.6); Creatine Kinase MB Index Unable to Calculate (0.0-4.0)
--- NOTE | 2020-12-10 16:18 | NUR ---
LAB RESULTS FROM TODAY FAXED TO DR. KATZ'S OFFICE.
== END 2020-12-10 14:09 | disposition home or self-care (01) ==
LOC: ATC 00:30
PROVIDERS: Internal Medicine Infectious Disease
DX: M86.8X8 Other osteomyelitis, other site (principal); B95.62 Methicillin resistant Staphylococcus aureus infection as the cause of diseases classified elsewhere; K70.30 Alcoholic cirrhosis of liver without ascites; I10 Essential (primary) hypertension; I81 Portal vein thrombosis; G89.4 Chronic pain syndrome; E87.6 Hypokalemia; E83.42 Hypomagnesemia; F17.210 Nicotine dependence, cigarettes, uncomplicated; B18.2 Chronic viral hepatitis C; Z79.01 Long term (current) use of anticoagulants
CPT/HCPCS: 80053; 82550; 82553; 85025; 85651; 86140; 96365; J0878

== ENCOUNTER 2020-12-11 00:16 | Day surgery (SDC) | payer OTHER, MEDICARE | END 2020-12-11 14:18 | disposition home or self-care (01) | LOC: ATC 00:16 | DX: M86.8X8 Other osteomyelitis, other site (principal); B95.62 Methicillin resistant Staphylococcus aureus infection as the cause of diseases classified elsewhere; J44.9 Chronic obstructive pulmonary disease, unspecified; I10 Essential (primary) hypertension; F17.210 Nicotine dependence, cigarettes, uncomplicated | CPT/HCPCS: J0878 ==

== ENCOUNTER 2020-12-13 00:09 | Day surgery (SDC) | payer OTHER, MEDICARE | END 2020-12-13 14:13 | disposition home or self-care (01) | LOC: ATC 00:09 | DX: M86.8X8 Other osteomyelitis, other site (principal); B95.62 Methicillin resistant Staphylococcus aureus infection as the cause of diseases classified elsewhere; J44.9 Chronic obstructive pulmonary disease, unspecified; I11.0 Hypertensive heart disease with heart failure; I50.33 Acute on chronic diastolic (congestive) heart failure; K70.30 Alcoholic cirrhosis of liver without ascites; F17.210 Nicotine dependence, cigarettes, uncomplicated; G89.4 Chronic pain syndrome; Z79.01 Long term (current) use of anticoagulants | CPT/HCPCS: 96365; J0878 ==

== ENCOUNTER 2020-12-15 13:26 | Day surgery (SDC) | payer OTHER, MEDICARE | END 2020-12-15 14:47 | disposition home or self-care (01) | LOC: ATC 13:26 | DX: M86.8X8 Other osteomyelitis, other site (principal); B95.62 Methicillin resistant Staphylococcus aureus infection as the cause of diseases classified elsewhere; F17.210 Nicotine dependence, cigarettes, uncomplicated; I10 Essential (primary) hypertension; K70.30 Alcoholic cirrhosis of liver without ascites; I81 Portal vein thrombosis; G89.4 Chronic pain syndrome; Z88.1 Allergy status to other antibiotic agents; Z88.8 Allergy status to other drugs, medicaments and biological substances; Z79.899 Other long term (current) drug therapy | CPT/HCPCS: J0878 ==

== ENCOUNTER 2020-12-16 13:28 | Day surgery (SDC) | payer OTHER, MEDICARE | END 2020-12-16 14:19 | disposition home or self-care (01) | LOC: ATC 13:28 | DX: M86.8X8 Other osteomyelitis, other site (principal); B95.62 Methicillin resistant Staphylococcus aureus infection as the cause of diseases classified elsewhere; I10 Essential (primary) hypertension; J44.9 Chronic obstructive pulmonary disease, unspecified; K70.30 Alcoholic cirrhosis of liver without ascites; G89.4 Chronic pain syndrome; F17.210 Nicotine dependence, cigarettes, uncomplicated | CPT/HCPCS: J0878 ==

== ENCOUNTER 2020-12-17 00:39 | Day surgery (SDC) | payer OTHER, MEDICARE | END 2020-12-17 14:15 | disposition home or self-care (01) | LOC: ATC 00:39 | DX: M86.8X8 Other osteomyelitis, other site (principal); B95.62 Methicillin resistant Staphylococcus aureus infection as the cause of diseases classified elsewhere; I10 Essential (primary) hypertension; J44.9 Chronic obstructive pulmonary disease, unspecified; Z88.8 Allergy status to other drugs, medicaments and biological substances; F17.210 Nicotine dependence, cigarettes, uncomplicated | CPT/HCPCS: 80053; 82550; 82553; 85025; 85651; 86140; 96365; J0878 ==

== ENCOUNTER 2020-12-18 00:29 | Day surgery (SDC) | payer OTHER, MEDICARE | END 2020-12-18 14:00 | disposition home or self-care (01) | LOC: ATC 00:29 | DX: M86.9 Osteomyelitis, unspecified (principal); B95.62 Methicillin resistant Staphylococcus aureus infection as the cause of diseases classified elsewhere; J44.9 Chronic obstructive pulmonary disease, unspecified; I81 Portal vein thrombosis; K70.30 Alcoholic cirrhosis of liver without ascites; I10 Essential (primary) hypertension; F17.210 Nicotine dependence, cigarettes, uncomplicated; G89.4 Chronic pain syndrome; Z88.8 Allergy status to other drugs, medicaments and biological substances; Z88.1 Allergy status to other antibiotic agents; Z88.5 Allergy status to narcotic agent; Z79.01 Long term (current) use of anticoagulants; Z79.2 Long term (current) use of antibiotics | CPT/HCPCS: 96365; J0878 ==

== ENCOUNTER 2020-12-19 00:20 | Day surgery (SDC) | payer OTHER, MEDICARE | END 2020-12-19 14:05 | disposition home or self-care (01) | LOC: ATC 00:20 | DX: M86.8X8 Other osteomyelitis, other site (principal); B95.62 Methicillin resistant Staphylococcus aureus infection as the cause of diseases classified elsewhere; F17.210 Nicotine dependence, cigarettes, uncomplicated; B18.2 Chronic viral hepatitis C; K70.31 Alcoholic cirrhosis of liver with ascites; G89.4 Chronic pain syndrome; I11.0 Hypertensive heart disease with heart failure; I50.33 Acute on chronic diastolic (congestive) heart failure; J44.1 Chronic obstructive pulmonary disease with (acute) exacerbation; K21.9 Gastro-esophageal reflux disease without esophagitis; E78.5 Hyperlipidemia, unspecified | CPT/HCPCS: 96365; 99211; A9270; J0878 ==

== ENCOUNTER 2021-01-03 13:44 | Inpatient (IN) | payer OTHER, MEDICARE ==
[~2021-01-03] VITALS: Ht 193 cm; Wt 120.7 kg
[~2021-01-03 13:44] MED LIST changes: +GENTAMICIN 0.1% TOP; -GENTAMICIN SULF15 GM TOP
[2021-01-03 14:35] LABS: Source, Urine Clean Catch
[2021-01-03 14:50] LABS: BASOPHILS ABSOLUTE AUTO 0.07 K/mm3 (0.00-0.23); BASOPHILS PERCENT AUTO 1 % (0-2); EOSINOPHILS ABSOLUTE AUTO 0.17 K/mm3 (0.00-0.68); EOSINOPHILS PERCENT AUTO 3 % (0-6); Hematocrit 45.2 % (37.0-53.0); IMMATURE GRAN ABSOLUTE AUTO 0.01 K/mm3 (0.00-0.10); IMMATURE GRAN PERCENT AUTO 0 % (0-1); LYMPHOCYTES PERCENT AUTO 17 % (21-46); MONOCYTES ABSOLUTE AUTO 0.85 K/mm3 (0.16-1.47); MONOCYTES PERCENT AUTO 16 % (4-13); Mean Corpuscular HGB 36.3 pg (26.0-34.0); Mean Corpuscular HGB Conc 35.4 g/dL (31.5-36.5); Mean Corpuscular Volume 103 fL (80-100); Mean Platelet Volume 9.1 fL (9.1-12.4); NEUTROPHILS ABSOLUTE AUTO 3.35 K/mm3 (1.96-9.15); NEUTROPHILS PERCENT AUTO 63 % (41-73); Platelet Count 148 K/mm3 (150-400); RDW Coefficient Variation 13.5 % (11.7-14.2); RDW Standard Deviation 51.6 fL (35.1-46.3); Red Blood Cell Count 4.41 M/mm3 (4.30-5.90); White Blood Cell Count 5.35 K/mm3 (4.00-11.30)
[2021-01-03 14:54] LABS: Appearance, Urine Clear (Clear); Bilirubin, Urine Neg (Neg); Blood, Urine Neg (Neg); Color, Urine Yellow (P-Yellow); Glucose Qualitative, Urine Neg (Neg); Ketones, Urine Neg (Neg); Leukocyte Esterase, Urine 1+ (Neg); Nitrite, Urine Neg (Neg); Protein, Urine Neg (Neg); Specific Gravity, Urine 1.015 (1.003-1.022); Urobilinogen, Urine NORM (Normal)
[2021-01-03 15:14] LABS: Alanine Aminotransfer (ALT/SGP 23 U/L (12-78); Albumin, Blood 2.7 g/dL (3.4-5.0); Albumin/Globulin Ratio 0.5 (0.8-1.8); Alk Phos 241 U/L (50-136); Anion Gap 7 mmol/L (6-16); Aspartate Aminotrans (AST/SGOT 49 U/L (12-37); Bilirubin, Total 1.3 mg/dL (0.1-1.0); Blood Urea Nitrogen 5 mg/dL (8-24); Bun/Creatinine Ratio 9.2 (12.0-20.0); CO2, Blood 24 mmol/L (21-32); Chloride, Blood 107 mmol/L (98-108); Creatinine, Blood 0.54 mg/dL (0.60-1.20); Globulin, Blood 5.9 g/dL (2.2-4.0); Glomerular Filtration Rate >60 (60-); Glucose, Blood 87 mg/dL (70-99); Potassium, Blood 3.3 mmol/L (3.5-5.5); Sodium, Blood 138 mmol/L (136-145); Total Protein, Blood 8.6 g/dL (6.4-8.2)
[2021-01-03 15:47] LABS: Bacteria Few /hpf; Mucus Light (0-Heavy); Red Blood Cells, Urine 0-2 /hpf (0-2); Squamous Epithelial Cells Mod /hpf (Few)
[2021-01-03] MEDS ORDERED: FLUT.05NI (18:21)
--- NOTE | 2021-01-03 22:27 | NUR ---
ADMISSION: PATIENT IS RECIEVED FROM ER VIA WHEEL CHAIR. VSS, REPORTING BILAT CHEST AND SHOULDER PAIN 8/10. PATIENT IS ORIENTED TO THE ROOM AND CALL SEWELL. PATIENT IS IN CONTACT ISOLATION FOR MRSA.
--- NOTE | 2021-01-04 01:34 | NUR ---
WOUND CULTURE: WOUND CULTURE WAS ORDERED IN THE ER. WOUND IS NOT DRAINING. DR KELLY IS NOTIFIED AND REQUEST CULTURE BE DC'D.
[2021-01-04 05:29] LABS: BASOPHILS ABSOLUTE AUTO 0.05 K/mm3 (0.00-0.23); BASOPHILS PERCENT AUTO 1 % (0-2); EOSINOPHILS PERCENT AUTO 4 % (0-6); Hematocrit 41.5 % (37.0-53.0); Hemoglobin 14.7 g/dL (13.5-17.5); IMMATURE GRAN ABSOLUTE AUTO 0.01 K/mm3 (0.00-0.10); IMMATURE GRAN PERCENT AUTO 0 % (0-1); LYMPHOCYTES ABSOLUTE AUTO 1.09 K/mm3 (0.84-5.20); LYMPHOCYTES PERCENT AUTO 20 % (21-46); MONOCYTES ABSOLUTE AUTO 0.96 K/mm3 (0.16-1.47); MONOCYTES PERCENT AUTO 18 % (4-13); Mean Corpuscular HGB 36.1 pg (26.0-34.0); Mean Corpuscular HGB Conc 35.4 g/dL (31.5-36.5); Mean Corpuscular Volume 102 fL (80-100); NEUTROPHILS ABSOLUTE AUTO 3.13 K/mm3 (1.96-9.15); NEUTROPHILS PERCENT AUTO 58 % (41-73); Platelet Count 137 K/mm3 (150-400); RDW Coefficient Variation 13.5 % (11.7-14.2); RDW Standard Deviation 50.8 fL (35.1-46.3); Red Blood Cell Count 4.07 M/mm3 (4.30-5.90); White Blood Cell Count 5.44 K/mm3 (4.00-11.30)
[2021-01-04 05:53] LABS: Anion Gap 6 mmol/L (6-16); Blood Urea Nitrogen 8 mg/dL (8-24); Bun/Creatinine Ratio 13.3 (12.0-20.0); CO2, Blood 27 mmol/L (21-32); Calcium, Blood 8.3 mg/dL (8.5-10.1); Chloride, Blood 100 mmol/L (98-108); Glomerular Filtration Rate >60 (60-); Glucose, Blood 90 mg/dL (70-99); Magnesium, Blood 1.6 mg/dL (1.6-2.4); Potassium, Blood 3.2 mmol/L (3.5-5.5); Sodium, Blood 133 mmol/L (136-145)
--- NOTE | 2021-01-04 06:31 | NUR ---
SHIFT SUMMARY: PATIENT IS A&OX4, UP TO BATHROOM WITH CANE AND SBA. VSS, TELI IS A FLUTTER, RATE 89. REPORTING BILAT CHEST/SHOULDER PAIN IS WELL CONTROLED WITH SCHEDULED MS CONTIN 15MG. PATIENT HAS GINGER BOOTS IN PLACE ON BILAT LE THAT WERE CHANGED AT THE WOUND CLINIC ON THURSDAY, DUE Q WEEK. A STDI WOUND SURROUNDS AN OPEN AREA ON R BUTTOCK THAT HE HAS BEEN UNABLE TO HEAL. SEE PHOTOS IN CHART.
--- NOTE | 2021-01-04 17:10 | NUR ---
PATIENT ALERT AND ORIENTED. INDEPENDENT IN ROOM WITH CANE; VERY UNSTEADY GAIT AT BASELINE. CONTINUES ON IV ABX WITHOUT S/SX OF ADVERSE REACTIONS NOTED OR REPORTED. MASS TO MID CHEST/STERNUM NOTED VISUALLY AND PALPATED, SKIN REMAINS INTACT HOWEVER. VERY REDDENED AREA. PAINFUL TO THE SIGHT; REQUESTS PAIN MEDICATION NEEDED WITH MODERATE EFFECTIVENESS. PLEASANT AND COOPERATIVE WITH STAFF. CALL LIGHT IN REACH.
--- NOTE | 2021-01-04 19:37 | NUR ---
+ BLOOD CULTURES / CALL TO PHARMACIST RECEIVED CALL FROM PHARMACY STATING 1 OR 2 BLOOD CULTURE BOTTLES IS GROWING GRAM + COCCI IN CLUSTERS. PT IS RECEIVING IV DAPTOMYCIN AND ANCEF. SPOKE W/ KIM IN PHARMACY WHO STATED PT CURRENT ABT ARE APPROPRIATE FOR CULTURE GROWTH AT THIS TIME.
--- NOTE | 2021-01-04 19:40 | NUR ---
+ BLOOD CULTURES / CALL TO PHARMACIST RECEIVED CALL FROM LAB STATING 1 OF 2 BLOOD CLUTURE BOTTLES IS GROWING GRAM + COCCI IN CLUSTERS. PT IS RECEIVING IV DAPTOMYCIN AND ANCEF. SPOKE W/ KIM IN PHARMACY WHO STATED PT CURRENT ABT ARE APPROPRIATE FOR CULTURE GROWTH AT THIS TIME.
--- NOTE | 2021-01-05 04:08 | NUR ---
SHIFT SUMMARY: VSS. AFEB. AAOX4. CIWA SCORE OF 1. CONT W/ CHEST PAIN D/T ABSCESS WELL CHRONIC NECK PAIN. MEDICATED W/ ROUTINE AND PRN PAIN MEDS W/ SOME IMPROVEMENT IN PAIN. PT IS CURRENTLY SLEEPING. IV ABT INFUSED PER ORDERS. CHEST ABSCESS APPEARS RED, SWOLLEN, AND HOT TO TOUCH. SKIN INTACT, NO DRAINAGE FROM ABSCESS. NO ACUTE CHANGES OVERNIGHT. WCTM.
--- NOTE | 2021-01-05 12:15 | NUR ---
partial echocardiogram complete
--- NOTE | 2021-01-05 17:08 | NUR ---
SUMMARY PT RESTING QUIETLY IN BED WATCHING TV, PT HAS BEEN PLEASANT AND COOPERATIVE WITH CARE T/O THE DAY, MED PER EMAR FOR PAIN, UP WITH MIN ASSIST, NO COMPLAINTS, VSS, WILL CONTINUE TO MONITOR
--- NOTE | 2021-01-06 03:36 | NUR ---
SHIFT SUMMARY: TEMP 99.0. 02 97% ON RA. UP INDEPENDENTLY IN ROOM. CONT W/ REDNESS, SWELLING, AND DISCOMFORT TO STERNAL ABSCESS. IV ABT INFUSED PER ORDERS. SLEEPING INTERMITTENTLY. PT REPORTS 5-8 LOOSE STOOLS IN A DAY. REFUSING BANANA FLAKES STATING THEY MAKE HIM FEEL WORSE. PT REPORTS DIARRHEA HAS BEEN OCCURING LONG BEFORE STARTING ABT. ABD SOFT, NON-TENDER, NON-DISTENDED. CALL TO HOSPITALIST TO ADDRESS, ASKED TO PASS ON TO DAY SHIFT PHYSICIAN. NO ACUTE CHANGES OVERNIGHT. WCTM.
--- NOTE | 2021-01-06 17:13 | NUR ---
SUMMARY PT RESTING QUIETLY IN BED WATCHING TV, PT HAS BEEN PLEASANT AND COOPERATIVE WITH CARE T/O THE DAY, ABCESS TO MID CHEST REMAINS INTACT, NO OPEN AREAS AND NO DRAINAGE NOTED, PT MED PER EMAR FOR C/O PAIN AND DIARRHEA, PT UP TO THE BATHROOM INDEPENDENTLY, USES A CANE FOR MOBILITY, VSS, WILL CONT TO MONITOR
--- NOTE | 2021-01-07 03:52 | NUR ---
SHIFT SUMMARY: AAOX4. AFEB. CONT W/ ERYTHEMA AND PAIN TO STERNAL ABSCESS REDENNED AREA APPEARS MUCH SMALL THAN FAINT PREVIOUSLY DRAWN MARKER OUTLINED AREA. IV ABT INFUSED PER ORDERS. IMODIUM GIVEN X1 FOR ONGOING REPORTED LOOSE STOOLS. PT SLEEPING INTERMITTENTLY TONIGHT. NO ACUTE CHANGES. WCTM.
[2021-01-07 09:07] LABS: Hematocrit 43.3 % (37.0-53.0); Hemoglobin 15.6 g/dL (13.5-17.5); Mean Corpuscular HGB 36.4 pg (26.0-34.0); Mean Corpuscular Volume 101 fL (80-100); Mean Platelet Volume 9.6 fL (9.1-12.4); Platelet Count 162 K/mm3 (150-400); RDW Coefficient Variation 13.2 % (11.7-14.2); RDW Standard Deviation 49.1 fL (35.1-46.3); Red Blood Cell Count 4.29 M/mm3 (4.30-5.90); White Blood Cell Count 6.63 K/mm3 (4.00-11.30)
[2021-01-07 09:32] LABS: Anion Gap 10 mmol/L (6-16); Blood Urea Nitrogen 7 mg/dL (8-24); CO2, Blood 22 mmol/L (21-32); Calcium, Blood 8.6 mg/dL (8.5-10.1); Chloride, Blood 102 mmol/L (98-108); Creatinine, Blood 0.54 mg/dL (0.60-1.20); Glomerular Filtration Rate >60 (60-); Glucose, Blood 107 mg/dL (70-99); Potassium, Blood 2.8 mmol/L (3.5-5.5); Sodium, Blood 134 mmol/L (136-145)
--- NOTE | 2021-01-07 15:35 | NUR ---
Upon visiting pt, found him lying back in bed, watching tv. He appears to be relaxed at this time. Reports that the pain to midsternal chest wall is easing up a bit the longer he is getting IV antibiotics. He has already been hospitalized recently for the same thing, and this is causing him some sadness, both about being "stuck in here", but also for not being there for his 80 year old mom who he lives with. He states she is self-abled, but requires assistance. Will remain available for this pt.
--- NOTE | 2021-01-07 18:07 | NUR ---
PATIENT TRANSFER: PATIENT COBRA TRANSFER TO [facility] THIS SHIFT. REPORT CALLED TO AUDREY JEFFERY. PATIENT DEPARTED MEDICAL FLOOR VIA AMBULANCE/PARAMEDICS WITH GURNEY AT 1800. PATIENT DEPARTED [facility] VIA AMBULANCE.
== END 2021-01-07 18:04 | disposition short-term general hospital (02) | DRG 548 ==
LOC: ER 13:44 → MEDS 18:18
PROVIDERS: Emergency Medicine; Internal Medicine; ADMIT Internal Medicine
DX: M00.9 Pyogenic arthritis, unspecified (principal); I81 Portal vein thrombosis; L02.213 Cutaneous abscess of chest wall; I50.32 Chronic diastolic (congestive) heart failure; R78.81 Bacteremia; M86.68 Other chronic osteomyelitis, other site; K76.6 Portal hypertension; R18.8 Other ascites; B95.62 Methicillin resistant Staphylococcus aureus infection as the cause of diseases classified elsewhere; E87.6 Hypokalemia; B18.2 Chronic viral hepatitis C; F10.10 Alcohol abuse, uncomplicated; J44.9 Chronic obstructive pulmonary disease, unspecified; I11.0 Hypertensive heart disease with heart failure; E78.5 Hyperlipidemia, unspecified; D53.9 Nutritional anemia, unspecified; K74.60 Unspecified cirrhosis of liver; M10.9 Gout, unspecified; F17.210 Nicotine dependence, cigarettes, uncomplicated; Z88.5 Allergy status to narcotic agent; Z88.1 Allergy status to other antibiotic agents; Z79.01 Long term (current) use of anticoagulants; Z88.8 Allergy status to other drugs, medicaments and biological substances; Z79.899 Other long term (current) drug therapy; Z90.49 Acquired absence of other specified parts of digestive tract; Z98.890 Other specified postprocedural states
CPT/HCPCS: 36415; 71260; 80048; 80053; 81001; 83605; 83735; 85025; 85027; 85651; 86140; 87040; 87077; 87086; 87147; 87186; 93308; 93321; 96365-59; 96366; 96375-59; 99285-25; A9270; J0690; J0878; J1170; J1650; J7050; Q9967

== ENCOUNTER 2021-04-13 03:14 | Inpatient (IN) | payer OTHER, MEDICARE ==
[~2021-04-13] VITALS: Ht 193 cm; Wt 117.7 kg
[~2021-04-13 03:14] MED LIST changes: +FLUT.05NI
[2021-04-13 03:39] LABS: BASOPHILS ABSOLUTE AUTO 0.08 K/mm3 (0.00-0.23); BASOPHILS PERCENT AUTO 1 % (0-2); EOSINOPHILS ABSOLUTE AUTO 0.01 K/mm3 (0.00-0.68); EOSINOPHILS PERCENT AUTO 0 % (0-6); Hematocrit 48.9 % (37.0-53.0); Hemoglobin 17.8 g/dL (13.5-17.5); IMMATURE GRAN ABSOLUTE AUTO 0.02 K/mm3 (0.00-0.10); IMMATURE GRAN PERCENT AUTO 0 % (0-1); LYMPHOCYTES PERCENT AUTO 13 % (21-46); MONOCYTES PERCENT AUTO 14 % (4-13); Mean Corpuscular HGB Conc 36.4 g/dL (31.5-36.5); Mean Corpuscular Volume 96 fL (80-100); Mean Platelet Volume 9.7 fL (9.1-12.4); NEUTROPHILS ABSOLUTE AUTO 6.81 K/mm3 (1.96-9.15); NEUTROPHILS PERCENT AUTO 72 % (41-73); Platelet Count 123 K/mm3 (150-400); RDW Coefficient Variation 13.6 % (11.7-14.2); RDW Standard Deviation 49.1 fL (35.1-46.3); Red Blood Cell Count 5.08 M/mm3 (4.30-5.90); White Blood Cell Count 9.42 K/mm3 (4.00-11.30)
[2021-04-13 03:50] LABS: Alanine Aminotransfer (ALT/SGP 46 U/L (12-78); Albumin, Blood 3.2 g/dL (3.4-5.0); Albumin/Globulin Ratio 0.6 (0.8-1.8); Alk Phos 251 U/L (50-136); Anion Gap 15 mmol/L (6-16); Aspartate Aminotrans (AST/SGOT 80 U/L (12-37); Bilirubin, Total 2.7 mg/dL (0.1-1.0); Blood Urea Nitrogen 13 mg/dL (8-24); Bun/Creatinine Ratio 19.3 (12.0-20.0); CO2, Blood 16 mmol/L (21-32); Calcium, Blood 8.6 mg/dL (8.5-10.1); Chloride, Blood 101 mmol/L (98-108); Creatinine, Blood 0.67 mg/dL (0.60-1.20); Globulin, Blood 5.6 g/dL (2.2-4.0); Glomerular Filtration Rate >60 (60-); Glucose, Blood 106 mg/dL (70-99); Potassium, Blood 3.9 mmol/L (3.5-5.5); Sodium, Blood 132 mmol/L (136-145); Total Protein, Blood 8.8 g/dL (6.4-8.2)
[2021-04-13 04:15] LABS: Troponin I <0.015 ng/mL (0.000-0.040)
[2021-04-13 07:10] LABS: International Normalized Ratio 1.22
[2021-04-13 07:34] LABS: SARS-Cov-2 (COVID-19) PCR, MMC NEGATIVE (NEGATIVE)
[2021-04-13 09:42] LABS: Hematocrit 45.2 % (37.0-53.0); Hemoglobin 16.1 g/dL (13.5-17.5)
[2021-04-13 15:40] LABS: Hematocrit 45.7 % (37.0-53.0); Hemoglobin 16.4 g/dL (13.5-17.5)
--- NOTE | 2021-04-13 19:26 | NUR ---
PT TRANSFER TO PCU AT 1835. ABLE TO STAND, USES CANE AT BASELINE. ON ROOM AIR SATING ABOVE 94%. TELE SHOWING AFIB WITH HR LOW 100'S. DENIES CHEST PAIN/PRESSURE. BOWEL TONES PRESENT. PT STATES HE HAS BEEN "THROWING UP AND POOPING BLOOD FOR PAST TWO DAYS". URINAL AT BEDSIDE. OCTREOTIDE, LR AND PROTONIX INFUSING. CBG Q6. CLEAR LIQUID DIET. EATING ICE CHIPS AT THIS TIME. VITAL SIGNS STABLE. ORIENTED TO ROOM AND UNIT. REPORTED OFF TO ONCOMING RN.
[2021-04-13 21:04] LABS: Hematocrit 45.1 % (37.0-53.0); Hemoglobin 15.9 g/dL (13.5-17.5)
--- NOTE | 2021-04-13 22:55 | NUR ---
PT STATED THAT HE DRINKS 3 BEERS A DAY AND DOES NOT WANT TO STOP. HE WOULD LIKE TO HAVE BEER HERE IN THE HOSPITAL.
--- NOTE | 2021-04-14 06:46 | NUR ---
SHIFT SUMMARY PT IS ALERT AND ORIENTED. VITALS HAVE BEEN STABLE WITH NO ACUTE CHANGES. HR HAS ELEVATED INTO THE 160'S BUT DID NOT MAINTAIN. PT DENIES CHEST PAIN OR SOB. PT IS ON ROOM AIR. PT DENIES DISCOMFORT IN ABDOMINAL REGION. PAIN / T/O BACK AND LEGS AND HAS BEEN MEDICATED PER EMAR. PT WOULD LIKE TO HAVE BEER DUE TO DRINKING 3 BEERS PER DAY WITH NO INTENTIONS OF QUITTING. STATED THAT IN PRIOR HOSPITALIZATIONS HE HAD BEER TO PREVENT WITHDRAWALS; LAST DRINK 04/12. CALL LIGHT IS WITHIN REACH.
--- NOTE | 2021-04-14 08:00 | NUR ---
PT ALERT AND ORIENTED X4. NEURO WNL. TELE SHOWING AFIB WITH HR 90-110'S. DENIES CHEST PAIN/PRESSURE. ON ROOM AIR SATING ABOVE 94%. BOWEL TONES PRESENT. USING URINAL AT BEDSIDE. DESCRIBES ABDOMINAL DISCOMFORT. DENIES NAUSEA. NO SIGNS OF BLEEDING. OCTREOTIDE, PROTONIX AND LR INFUSING. COMPLAINS OF BACK PAIN. MEDICATED PER EMAR. ON CLEAR LIQUID DIET, TOLERATING WELL. CALL LIGHT IN REACH. WILL CONTINUE TO MONITOR. DENIES NEEDS AT THIS TIME.
[2021-04-14] MEDS ORDERED: PANT40 PO (10:04)
--- NOTE | 2021-04-14 10:43 | NUR ---
DISCHARGE: NO ACUTE CHANGES. DISCHARGE WNL. INSTRUCTIONS REVIEWED AND QUESTIONS ANSWERED. IV TAKEN OUT WNL. PATIENT LEFT UNIT VIA WHEELCHAIR WITH ALL PERSONAL BELONGINGS. PATIENTS MOM IN TO PICK PATIENT UP.
== END 2021-04-14 10:42 | disposition home or self-care (01) | DRG 377 ==
LOC: ER 03:14 → ERHOLD 06:23 → PCU 06:23
PROVIDERS: Student in an Organized Health Care Education/Training Program; ADMIT Internal Medicine
DX: K92.0 Hematemesis (principal); I81 Portal vein thrombosis; I48.92 Unspecified atrial flutter; K76.6 Portal hypertension; I50.32 Chronic diastolic (congestive) heart failure; E87.1 Hypo-osmolality and hyponatremia; F11.20 Opioid dependence, uncomplicated; Z20.822 Contact with and (suspected) exposure to COVID-19; K70.31 Alcoholic cirrhosis of liver with ascites; I11.0 Hypertensive heart disease with heart failure; D69.6 Thrombocytopenia, unspecified; F10.10 Alcohol abuse, uncomplicated; J44.9 Chronic obstructive pulmonary disease, unspecified; F17.210 Nicotine dependence, cigarettes, uncomplicated; Z88.1 Allergy status to other antibiotic agents; Z88.8 Allergy status to other drugs, medicaments and biological substances; Z88.5 Allergy status to narcotic agent; Z79.899 Other long term (current) drug therapy; Z86.14 Personal history of Methicillin resistant Staphylococcus aureus infection; Z98.890 Other specified postprocedural states; Z90.49 Acquired absence of other specified parts of digestive tract
CPT/HCPCS: 36415; 80053; 82140; 82947; 84484; 85014; 85018; 85025; 85610; 85730; 86850; 86900; 86901; 93005; 93010; 96365; 96366; 96375; 99285-25; A9270; C9113; J0696; J2354; J2405; J2765; J3010; J7030; J7050; J7120; U0004

== ENCOUNTER 2021-10-06 21:40 | Inpatient (IN) | payer OTHER, MEDICARE ==
[~2021-10-06] VITALS: Ht 193 cm; Wt 130.1 kg
[~2021-10-06 21:40] MED LIST changes: +PANT40 PO
[2021-10-06] MEDS ORDERED: ALBU90OI INH (21:57)
[2021-10-06 22:31] LABS: BASOPHILS ABSOLUTE AUTO 0.04 K/mm3 (0.00-0.23); BASOPHILS PERCENT AUTO 1 % (0-2); EOSINOPHILS ABSOLUTE AUTO 0.02 K/mm3 (0.00-0.68); EOSINOPHILS PERCENT AUTO 0 % (0-6); Hematocrit 36.2 % (37.0-53.0); IMMATURE GRAN ABSOLUTE AUTO 0.08 K/mm3 (0.00-0.10); IMMATURE GRAN PERCENT AUTO 1 % (0-1); LYMPHOCYTES ABSOLUTE AUTO 0.33 K/mm3 (0.84-5.20); LYMPHOCYTES PERCENT AUTO 5 % (21-46); MONOCYTES ABSOLUTE AUTO 0.75 K/mm3 (0.16-1.47); MONOCYTES PERCENT AUTO 12 % (4-13); Mean Corpuscular Volume 96 fL (80-100); Mean Platelet Volume 9.9 fL (9.1-12.4); NEUTROPHILS PERCENT AUTO 81 % (41-73); Platelet Count 90 K/mm3 (150-400); RDW Coefficient Variation 15.3 % (11.7-14.2); RDW Standard Deviation 53.2 fL (35.1-46.3); Red Blood Cell Count 3.76 M/mm3 (4.30-5.90); White Blood Cell Count 6.32 K/mm3 (4.00-11.30)
[2021-10-06 22:32] LABS: Hemoglobin 14.1 g/dL (13.5-17.5); Mean Corpuscular HGB 37.5 pg (26.0-34.0)
[2021-10-06 22:58] LABS: Alanine Aminotransfer (ALT/SGP 94 U/L (12-78); Albumin, Blood 2.3 g/dL (3.4-5.0); Albumin/Globulin Ratio 0.4 (0.8-1.8); Alk Phos 328 U/L (50-136); Anion Gap 17 mmol/L (6-16); Aspartate Aminotrans (AST/SGOT 209 U/L (12-37); Bilirubin, Total 12.5 mg/dL (0.1-1.0); Blood Urea Nitrogen 15 mg/dL (8-24); Bun/Creatinine Ratio 18.1 (12.0-20.0); CO2, Blood 18 mmol/L (21-32); Calcium, Blood 8.9 mg/dL (8.5-10.1); Chloride, Blood 81 mmol/L (98-108); Creatinine, Blood 0.83 mg/dL (0.60-1.20); Globulin, Blood 5.9 g/dL (2.2-4.0); Glomerular Filtration Rate >60 (60-); Glucose, Blood 72 mg/dL (70-99); Potassium, Blood 4.5 mmol/L (3.5-5.5); Sodium, Blood 116 mmol/L (136-145); Total Protein, Blood 8.2 g/dL (6.4-8.2)
[2021-10-06 22:59] LABS: Creatine Kinase MB 1.2 ng/mL (0.0-3.6); Creatine Kinase MB Index 1.9 (0.0-4.0)
[2021-10-06 23:35] LABS: International Normalized Ratio 1.36
[2021-10-07 00:13] LABS: Influenza A, PCR NEGATIVE (NEGATIVE); Influenza B, PCR NEGATIVE (NEGATIVE); Resp Syncytial Virus, PCR NEGATIVE (NEGATIVE); SARS-Cov-2 (COVID-19) PCR, MMC NEGATIVE (NEGATIVE)
--- NOTE | 2021-10-07 02:40 | NUR ---
CARE ASSUMPTION PT IS AXO X4 AND ANSWERRING QUESTIONS APPROPRIATLEY. O2 SATS >90% ON RM AIR. PT HAS C/O PAIN IN BLE'S, TREATED PER EMAR. TELE SHOWING ST 105-110'S. PT DENYING ANY FURTHER NEEDS AT THIS TIME.
[2021-10-07 04:12] LABS: BASOPHILS ABSOLUTE AUTO 0.04 K/mm3 (0.00-0.23); BASOPHILS PERCENT AUTO 1 % (0-2); EOSINOPHILS ABSOLUTE AUTO 0.04 K/mm3 (0.00-0.68); EOSINOPHILS PERCENT AUTO 1 % (0-6); Hematocrit 30.8 % (37.0-53.0); IMMATURE GRAN ABSOLUTE AUTO 0.06 K/mm3 (0.00-0.10); IMMATURE GRAN PERCENT AUTO 1 % (0-1); LYMPHOCYTES ABSOLUTE AUTO 0.41 K/mm3 (0.84-5.20); LYMPHOCYTES PERCENT AUTO 7 % (21-46); MONOCYTES ABSOLUTE AUTO 0.76 K/mm3 (0.16-1.47); MONOCYTES PERCENT AUTO 13 % (4-13); Mean Corpuscular Volume 96 fL (80-100); Mean Platelet Volume 9.6 fL (9.1-12.4); NEUTROPHILS PERCENT AUTO 78 % (41-73); Platelet Count 77 K/mm3 (150-400); RDW Coefficient Variation 15.1 % (11.7-14.2); RDW Standard Deviation 52.1 fL (35.1-46.3); Red Blood Cell Count 3.22 M/mm3 (4.30-5.90); White Blood Cell Count 5.91 K/mm3 (4.00-11.30)
[2021-10-07 04:38] LABS: Alanine Aminotransfer (ALT/SGP 72 U/L (12-78); Albumin, Blood 2.2 g/dL (3.4-5.0); Albumin/Globulin Ratio 0.5 (0.8-1.8); Alk Phos 262 U/L (50-136); Anion Gap 12 mmol/L (6-16); Aspartate Aminotrans (AST/SGOT 165 U/L (12-37); Bilirubin, Total 10.5 mg/dL (0.1-1.0); Blood Urea Nitrogen 18 mg/dL (8-24); Bun/Creatinine Ratio 25.1 (12.0-20.0); CO2, Blood 21 mmol/L (21-32); Calcium, Blood 8.4 mg/dL (8.5-10.1); Chloride, Blood 84 mmol/L (98-108); Creatinine, Blood 0.72 mg/dL (0.60-1.20); Globulin, Blood 4.6 g/dL (2.2-4.0); Glomerular Filtration Rate >60 (60-); Glucose, Blood 76 mg/dL (70-99); Mean Corpuscular HGB 37.3 pg (26.0-34.0); Potassium, Blood 4.7 mmol/L (3.5-5.5); Sodium, Blood 117 mmol/L (136-145); Total Protein, Blood 6.8 g/dL (6.4-8.2)
--- NOTE | 2021-10-07 06:02 | NUR ---
SMALL PACKAGE AND BUNDLE SORTER CLERK SUMMARY PT IS AXO X4 AND COMMUNICATES APPROPRIATELY. PT HAS HAD CIWA'S OF 0 THIS SHIFT. VSS AND TELE SHOWING ST 100'S THIS SHIFT. PT HAD C/O PAIN IN BLE THIS SHIFT BUT DENIED ANY NAUSEA. PT HAS OPEN PRESSURE ULCER ON HIS COCCYX SO PICS WERE TAKEN AND MEPILEX PAD APPLIED. PT SLEPT COMFORTABLY FOR MOST OF THE SHIFT. NS RUNNING AND CALL LIGHT WITHIN REACH. WILL REPORT TO ONCOMING RN.
[2021-10-07 10:44] LABS: Anion Gap 10 mmol/L (6-16); Blood Urea Nitrogen 16 mg/dL (8-24); Bun/Creatinine Ratio 24.1 (12.0-20.0); CO2, Blood 21 mmol/L (21-32); Calcium, Blood 8.2 mg/dL (8.5-10.1); Chloride, Blood 86 mmol/L (98-108); Creatinine, Blood 0.66 mg/dL (0.60-1.20); Glomerular Filtration Rate >60 (60-); Glucose, Blood 116 mg/dL (70-99); Potassium, Blood 4.3 mmol/L (3.5-5.5); Sodium, Blood 117 mmol/L (136-145)
[2021-10-07 13:29] LABS: Source, Urine Clean Catch
[2021-10-07 13:40] LABS: Blood, Urine Neg (Neg); Glucose Qualitative, Urine Neg (Neg); Ketones, Urine 3+ (Neg); Leukocyte Esterase, Urine Neg (Neg); Nitrite, Urine Neg (Neg); Protein, Urine Neg (Neg); Urobilinogen, Urine 3+ (Normal); pH, Urine 6.5 (5.0-8.0)
[2021-10-07 13:54] LABS: Appearance, Urine Clear (Clear); Color, Urine Pale Yellow (P-Yellow)
[2021-10-07 13:55] LABS: Bilirubin, Urine 1+ (Neg)
--- NOTE | 2021-10-07 16:53 | NUR ---
SHIFT SUMMARY PT A&Ox3; CALM AND COOPERATIVE WITH CARE. PT SLEEPING INTERMITTENTLY T/O SHIFT. PT REPORTS PAIN TO BLE, MEDICATED PER EMAR. PT SOB WITH EXERTION, ON 1-2L O2 VIA NC, SPO2 >90% FOR MAJORITY OF SHIFT, DESATS WITH MOVEMENT. PER TELE SR-ST 90-100'S; BP STABLE, DENIES CHEST PAIN/PRESSURE. ABD SEVERE DISTENDED, FIRM, TENDER, HYPOACTIVE BOWEL TONES T/O. LS DIM CRACKSLES IN BASES. PT RECEIVED PO LASIX. VSS. NO OTHER ACUTE CHANGES NOTED DURING SHIFT. WILL CONTINUE TO MONITOR UNITL REPORT GIVEN TO ONCOMING RN.
[2021-10-07 17:14] LABS: Anion Gap 10 mmol/L (6-16); Blood Urea Nitrogen 17 mg/dL (8-24); CO2, Blood 23 mmol/L (21-32); Calcium, Blood 8.4 mg/dL (8.5-10.1); Chloride, Blood 86 mmol/L (98-108); Creatinine, Blood 0.65 mg/dL (0.60-1.20); Glomerular Filtration Rate >60 (60-); Glucose, Blood 148 mg/dL (70-99); Sodium, Blood 119 mmol/L (136-145)
--- NOTE | 2021-10-07 20:47 | NUR ---
CARE ASSUMPTION PT IS AXO X3-4 AND ANSWERING QUESTIONS APPROPRIATELY. PT REPORTING PAIN IN BLE'S, MEDICATED PER EMAR. O2 SATS >90% ON 1.5L NC. VSS AND AFEBRILE. TELE SHOWING ST 110'S. CIWA IS 1. SCD'S ON AND PT REPOSITIONED. PT DENYING ANY FURTHER NEEDS AT THIS TIME.
[2021-10-07 22:59] LABS: Anion Gap 7 mmol/L (6-16); Blood Urea Nitrogen 17 mg/dL (8-24); Bun/Creatinine Ratio 24.7 (12.0-20.0); CO2, Blood 25 mmol/L (21-32); Calcium, Blood 8.5 mg/dL (8.5-10.1); Chloride, Blood 86 mmol/L (98-108); Creatinine, Blood 0.69 mg/dL (0.60-1.20); Glomerular Filtration Rate >60 (60-); Glucose, Blood 134 mg/dL (70-99); Potassium, Blood 4.2 mmol/L (3.5-5.5); Sodium, Blood 118 mmol/L (136-145)
[2021-10-08 04:05] LABS: Hematocrit 31.1 % (37.0-53.0); Mean Corpuscular Volume 96 fL (80-100); Mean Platelet Volume 9.9 fL (9.1-12.4); Platelet Count 77 K/mm3 (150-400); RDW Coefficient Variation 15.6 % (11.7-14.2); RDW Standard Deviation 53.4 fL (35.1-46.3); Red Blood Cell Count 3.23 M/mm3 (4.30-5.90); White Blood Cell Count 5.73 K/mm3 (4.00-11.30)
[2021-10-08 04:30] LABS: Alanine Aminotransfer (ALT/SGP 75 U/L (12-78); Albumin, Blood 2.1 g/dL (3.4-5.0); Albumin/Globulin Ratio 0.4 (0.8-1.8); Alk Phos 270 U/L (50-136); Anion Gap 8 mmol/L (6-16); Aspartate Aminotrans (AST/SGOT 168 U/L (12-37); Bilirubin, Total 10.1 mg/dL (0.1-1.0); Blood Urea Nitrogen 17 mg/dL (8-24); Bun/Creatinine Ratio 25.3 (12.0-20.0); CO2, Blood 26 mmol/L (21-32); Calcium, Blood 8.2 mg/dL (8.5-10.1); Chloride, Blood 88 mmol/L (98-108); Creatinine, Blood 0.67 mg/dL (0.60-1.20); Globulin, Blood 4.7 g/dL (2.2-4.0); Glomerular Filtration Rate >60 (60-); Glucose, Blood 118 mg/dL (70-99); Potassium, Blood 3.7 mmol/L (3.5-5.5); Sodium, Blood 122 mmol/L (136-145); Total Protein, Blood 6.8 g/dL (6.4-8.2)
[2021-10-08 05:20] LABS: Hemoglobin 12.1 g/dL (13.5-17.5); Mean Corpuscular HGB 37.5 pg (26.0-34.0); Mean Corpuscular HGB Conc 38.9 g/dL (31.5-36.5)
--- NOTE | 2021-10-08 05:49 | NUR ---
COORDINATOR OF ONLINE PROGRAMS SUMMARY PT IS AXO X3 AND USES HIS CALL LIGHT TO MAKE HIS NEEDS KNOWN. PT HAD NA LEVEL COME BACK AT 118 THIS SHIFT SO PROVIDER WAS CONTACTED THIS WAS A DECREASE FROM THE PRIOR DRAW, PROVIDER ORDERED ADDITIONAL 20MG LASIX IV TO BE GIVEN. PT MAINTAINING O2 SATS >90% ON 1.5L NC THIS SHIFT. VSS AND TELE SHOWING AFIB 86-125 THIS SHIFT. PT HAVING GOOD URINE OUTPUT THIS SHIFT, SEE I&O'S. LS STILL W FINE CRACKLES IN BASES W OCCASIONAL HACKING NONPRODUCTIVE COUGH. WILL REPORT TO ONCOMING RN.
--- NOTE | 2021-10-08 07:34 | NUR ---
ASSUMPTION OF CARE AT APPROX 0700. RECEIVED REPORT FROM AYANA RN. A&Ox4; CALM AND COOPERATIVE WITH CARE. PT RESTING IN BED THIS AM, Q2 REPOSITIONING. SPO2 >90% ON 2L O2 VIA NC, PT REPORTS "MILD" INTERMITTENT SOB WITH MOVEMENT, LS CLEAR, DIM IN BASES. TELE AFIB 90-110'S, BP STABLE. ABD SEVERE DISTENDED, FIRM AND TENDER; BT HYPOACTIVE x4 QUAD. BLE EDEMA 2+ AND OVERALL SWELLING IMPROVED FROM YESTERDAY. PT REPORTS IMPROVED APPETITE. PT REPORT CHRONIC PAIN TO BLE, WILL MEDICATED PER EMAR. PT DENIES CHEST PAIN, NASUEA, AND DIZZINESS. NO S/SX OF DISTRESS NOTED. VSS. NO OTHER ACUTE CHANGES NOTED. WILL CONTINUE TO MONITOR.
--- NOTE | 2021-10-08 17:23 | NUR ---
SHIFT SUMMARY BP TRENDING DOWN AND MINIMAL URINE OUTPUT NOTED, NOTIFIED DR RONY DR TO PLACE ORDERS. PT APPEARS MORE AGGITATED THIS EVENING, CIWA REMAINS <8 T/O SHIFT. OTHER VSS. NO ACUTE DISTRESS NOTED. NO OTHER ACUTE CHANGES NOTED. WILL CONTINUE TO MONITOR UNITL REPORT GIVEN TO ONCOMING RN.
--- NOTE | 2021-10-08 21:52 | NUR ---
CARE ASSUMPTION PT IS LYING IN BED IN NO DISTRESS. O2 SATS >90% ON RM AIR. PT IS AXO4 AND CIWA IS A 1. BP WNL AT THIS TIME. SCD'S ON AND PT RESTING COMFORTABLY IN BED DENYING ANY FURTHER NEEDS AT THIS TIME. WCTM
[2021-10-09 04:18] LABS: Alanine Aminotransfer (ALT/SGP 74 U/L (12-78); Albumin, Blood 2.5 g/dL (3.4-5.0); Albumin/Globulin Ratio 0.5 (0.8-1.8); Alk Phos 259 U/L (50-136); Anion Gap 7 mmol/L (6-16); Aspartate Aminotrans (AST/SGOT 159 U/L (12-37); Blood Urea Nitrogen 18 mg/dL (8-24); Bun/Creatinine Ratio 25.5 (12.0-20.0); CO2, Blood 26 mmol/L (21-32); Calcium, Blood 8.7 mg/dL (8.5-10.1); Chloride, Blood 90 mmol/L (98-108); Creatinine, Blood 0.71 mg/dL (0.60-1.20); Globulin, Blood 4.7 g/dL (2.2-4.0); Glomerular Filtration Rate >60 (60-); Glucose, Blood 116 mg/dL (70-99); Phosphorus, Blood 1.4 mg/dL (2.5-4.9); Potassium, Blood 3.9 mmol/L (3.5-5.5); Sodium, Blood 123 mmol/L (136-145); Total Protein, Blood 7.2 g/dL (6.4-8.2)
--- NOTE | 2021-10-09 05:26 | NUR ---
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 BP WNL AND STABLE THIS SHIFT. O2 SATS >90% ON RM AIR. CIWA AT A 3 ALTHOUGH THE PT IS VERBALIZING HIS DESIRE TO GO HOME MUCH MORE THIS SHIFT W LESS OF AN INTEREST IN GOING TO REHAB. NO MAJOR CHANGES THIS SHIFT THE PT RESTED COMFORTABLY IN BED W CALL LIGHT IN REACH FOR MOST OF THE SHIFT. WILL REPORT TO ONCSARAI VENTURA.
[2021-10-09 05:48] LABS: BASOPHILS ABSOLUTE AUTO 0.07 K/mm3 (0.00-0.23); BASOPHILS PERCENT AUTO 1 % (0-2); EOSINOPHILS ABSOLUTE AUTO 0.19 K/mm3 (0.00-0.68); EOSINOPHILS PERCENT AUTO 3 % (0-6); Hematocrit 30.6 % (37.0-53.0); IMMATURE GRAN ABSOLUTE AUTO 0.04 K/mm3 (0.00-0.10); IMMATURE GRAN PERCENT AUTO 1 % (0-1); LYMPHOCYTES PERCENT AUTO 7 % (21-46); MONOCYTES ABSOLUTE AUTO 0.65 K/mm3 (0.16-1.47); MONOCYTES PERCENT AUTO 11 % (4-13); Mean Corpuscular Volume 97 fL (80-100); Mean Platelet Volume 9.9 fL (9.1-12.4); NEUTROPHILS ABSOLUTE AUTO 4.38 K/mm3 (1.96-9.15); NEUTROPHILS PERCENT AUTO 77 % (41-73); Platelet Count 75 K/mm3 (150-400); RDW Coefficient Variation 15.9 % (11.7-14.2); RDW Standard Deviation 55.3 fL (35.1-46.3); Red Blood Cell Count 3.16 M/mm3 (4.30-5.90); White Blood Cell Count 5.73 K/mm3 (4.00-11.30)
[2021-10-09 05:59] LABS: Hemoglobin 11.7 g/dL (13.5-17.5); Mean Corpuscular HGB Conc 38.2 g/dL (31.5-36.5)
--- NOTE | 2021-10-09 18:21 | NUR ---
SHIFT NOTE PT ALERT, SLOW TO ANSWER QUESTIONS, DROWSY. PT WAS UP TO BSC THIS AM AND THEN REQUIRED ADDITIONAL ASSISTANCE BACK TO BED, PT WILL BE BED VICTOR T/O THE DAY R/T WEAKNESS. SOFT B/P NOTED T/O THE DAY, BP SEEMS TO BE DEPENDANT ON POSITION. VSS WITH THE EXPECTION OF SOFT BP. REPORTS GENERALIZED PAIN T/O. ABD DISTENDED SUBSTANTIALLY. JAUNDICED SKIN AND EYES. PT RECIEVED ADDITIONAL DOSE OF ALBUMIN. FINE CRACKLES NOTED TO LUNG ZAMUDIO T/O. PT DID HAVE 1 BM TODAY. PT DENIES MANY NEEDS T/O THE DAY. PT WITH MODERATE APPETITE
--- NOTE | 2021-10-09 19:38 | NUR ---
CARE ASSUMPTION PT IS AXO X3 AND IS ANSWERING QUESTION APPROPRIATELY. PT APPEARS VERY TIRED BUT IS PARTICIPATING IN ASSESSMENT. O2 SATS >92% ON RM AIR. PT IN NO DISTRESS AND DENYING ANY FURTHER NEEDS AT THIS TIME.
[2021-10-10 04:31] LABS: BASOPHILS ABSOLUTE AUTO 0.07 K/mm3 (0.00-0.23); BASOPHILS PERCENT AUTO 1 % (0-2); EOSINOPHILS ABSOLUTE AUTO 0.16 K/mm3 (0.00-0.68); EOSINOPHILS PERCENT AUTO 3 % (0-6); IMMATURE GRAN ABSOLUTE AUTO 0.03 K/mm3 (0.00-0.10); IMMATURE GRAN PERCENT AUTO 1 % (0-1); LYMPHOCYTES ABSOLUTE AUTO 0.46 K/mm3 (0.84-5.20); LYMPHOCYTES PERCENT AUTO 8 % (21-46); MONOCYTES PERCENT AUTO 12 % (4-13); Mean Corpuscular Volume 98 fL (80-100); Mean Platelet Volume 9.7 fL (9.1-12.4); NEUTROPHILS ABSOLUTE AUTO 4.31 K/mm3 (1.96-9.15); NEUTROPHILS PERCENT AUTO 75 % (41-73); Platelet Count 88 K/mm3 (150-400); RDW Coefficient Variation 16.3 % (11.7-14.2); RDW Standard Deviation 57.1 fL (35.1-46.3); Red Blood Cell Count 3.26 M/mm3 (4.30-5.90); White Blood Cell Count 5.73 K/mm3 (4.00-11.30)
[2021-10-10 04:36] LABS: Hemoglobin 12.2 g/dL (13.5-17.5); Mean Corpuscular HGB 37.4 pg (26.0-34.0); Mean Corpuscular HGB Conc 38.1 g/dL (31.5-36.5)
[2021-10-10 04:53] LABS: Alanine Aminotransfer (ALT/SGP 72 U/L (12-78); Albumin, Blood 2.6 g/dL (3.4-5.0); Albumin/Globulin Ratio 0.6 (0.8-1.8); Alk Phos 229 U/L (50-136); Anion Gap 8 mmol/L (6-16); Aspartate Aminotrans (AST/SGOT 157 U/L (12-37); Blood Urea Nitrogen 14 mg/dL (8-24); CO2, Blood 25 mmol/L (21-32); Calcium, Blood 8.9 mg/dL (8.5-10.1); Chloride, Blood 92 mmol/L (98-108); Globulin, Blood 4.6 g/dL (2.2-4.0); Glomerular Filtration Rate >60 (60-); Glucose, Blood 116 mg/dL (70-99); Potassium, Blood 3.9 mmol/L (3.5-5.5); Sodium, Blood 125 mmol/L (136-145); Total Protein, Blood 7.2 g/dL (6.4-8.2)
--- NOTE | 2021-10-10 05:56 | NUR ---
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 NO MAJOR CHANGES THE PT STAYED AWAKE ALL SHIFT WATCHING TV. VSS AND AFEBRILE. O2 SATS >90% ON RM AIR AT START OF THE SHIFT HOWEVER THE PT REQUIRING 3L NC TO MAINTAIN O2 SATS >90%. WILL REPORT TO ONCOMING RN.
--- NOTE | 2021-10-10 18:13 | NUR ---
SHIFT NOTE PT A/O X3, HE IS A LITTLE SLOW TO ANSWER QUESTIONS BUT APPEARS MORE ALERT TODAY THAN THE PREVIOUS SHIFT WITH THIS RN. VSS, BPs HAVE IMPROVED. PT WAS ABLE TO PARTICIPATE WITH PHYSICAL THERAPY AND OCCUPATIONAL THERAPY. NO EDEMA TO BLE, 2+ EDEMA NOTED TO HIPS AND THIGHS. SKIN REMAINS JAUNDICED, EYES ARE JAUNDICED, URINE IS ORANGE. PT REPORTS SOME GENERALIZED PAIN T/O. ABD ROUND DISTENDED, HYPOACTIVE BOWEL TONES.
--- NOTE | 2021-10-10 19:30 | NUR ---
PATIENT REPORT PAIN IN LEFT LEG FROM NEUROPATHY PAIN; WHEN LEAVING ROOM PATIENT REPORTS "I NEED SOMETHING STRONGER THAN YOU HAVE BEEN GIVING ME"; REPORTS 7/10 PAIN; NO PRN PAIN MEDICATIONS ORDERED; PATIENT REPORTS ALLERGY TO VICODIN "IT MAKES ME ITCH"; REPORTS TAKING TYLENOL AT HOME BUT IT DOESNT WORK. 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 NOT SURE WHY [place] LISTED ALLERGY "I DON'T REMEMBER".
--- NOTE | 2021-10-10 19:44 | NUR ---
ASSUMED CARE OF PATIENT AT APPROXIMATELY 1905 FROM PATTY Moreno RN. PATIENT ALERT AND ORIENTED; WEAK; UNBLE TO TURN SELF IN BED; REPORTS "YOU'LL PROBABLY HATE ME BY THE END OF THE NIGHT" WHEN ENTERING ROOM. PATIENT REPORTS PAIN IN LEFT LEG THAT IS CHRONIC NEUROPATHY; NO PAIN MEDICATIONS ORDERED; WILL CALL HOSPITALIST FOR ORDERS; SEE PREVIOUS NOTE ON ALLERGIES AND PATIENTS HISTORY WITH PAIN. PATIENT HAS CHRONIC N/T IN BOTH LEGS. PATIENT DENIES DIZZINESS AND NAUSEA. MEDICAL NO TELE STATUS. JAUNDICED; PER REPORT NEEDS HELP WITH URINAL AND USES BEDPAN DUE TO BP DROPPING WITH AMBULATION.
--- NOTE | 2021-10-11 06:14 | NUR ---
PATIENT DID NOT SLEEP MORE THAN A FEW HOURS LAST NIGHT; MULTIPLE BM'S ON BEDPAN. NO OTHER ACUTE CHANGES TO REPORT.
--- NOTE | 2021-10-11 17:09 | NUR ---
Shift Summary: Pt has been drowsy but easily arousable during my shift. Answers questions appropriately, able to make needs known, uses call light correctly. Complains of SOB, reports this is normal for him. Pt reports passing flatus but not BM's during my shift. Complains of pain in BLE, positioned on pillows for comfort. Pt repositioned off of back to relieve pressue on coccyx.
--- NOTE | 2021-10-11 20:23 | NUR ---
ASSUMED CARE OF PATIENT AT APPROXIMATELY 1905 FROM PATTY Moreno RN. PATIENT ALERT AND ORIENTED; WEAK; UNBLE TO TURN SELF IN BED; PATIENT HAS CHRONIC N/T IN BOTH LEGS. PATIENT DENIES DIZZINESS AND NAUSEA. MEDICAL NO TELE STATUS. JAUNDICED; PER REPORT NEEDS HELP WITH URINAL AND USES BEDPAN DUE TO BP DROPPING WITH AMBULATION. PIV X2 S/L. USES BEDPAN FOR BM; URINAL OR INCONTINENT OF URINE.
[2021-10-12 06:23] LABS: Anion Gap 9 mmol/L (6-16); Blood Urea Nitrogen 12 mg/dL (8-24); Bun/Creatinine Ratio 22.4 (12.0-20.0); CO2, Blood 25 mmol/L (21-32); Calcium, Blood 8.7 mg/dL (8.5-10.1); Chloride, Blood 96 mmol/L (98-108); Creatinine, Blood 0.54 mg/dL (0.60-1.20); Glomerular Filtration Rate >60 (60-); Glucose, Blood 113 mg/dL (70-99); Sodium, Blood 130 mmol/L (136-145)
--- NOTE | 2021-10-12 06:27 | NUR ---
PATIENT SLEPT ABOUT FOUR HOURS; OXYGEN TITRATED UP TO 3LPM VIA NC.
--- NOTE | 2021-10-12 11:40 | NUR ---
ASSUMED CARE AT 0700, A/A/OX4, VSS, ASSISTS WITH REPOSITIONING IN BED. WORKED WITH PHYSICAL THERAPY AND UP TO RECLINER. 4L O2 VIA NC, VSS, REPORT TO MEDICAL FLOOR AUDREY CARRILLO TO ASSUME CARE. TRANSFER TO MEDICAL FLOOR VIA WHEELCHAIR.
--- NOTE | 2021-10-12 12:44 | NUR ---
PATIENT ARRIVED AT 1150 THIS SHIFT. PATIENT ALERT AND ORIENTED. VSS. 1 PERSON ASSIST TO THE BED. ON 4LPM O2 VIA NASAL CANNULA.
--- NOTE | 2021-10-13 07:47 | NUR ---
Patient in bed recieved PRN pain medication for chronic pain. Patient in semi ahuja position in bed all night. Patient has a non productive dry cough. Patient had two voids, no BM's during shift. Report given to oncoming nurse.
--- NOTE | 2021-10-13 16:17 | NUR ---
SHIFT SUMMARY PATIENT IS ALERT AND ORIENTED, PLEASANT AND COOPERATIVE WITH CARE. THE PATIENT IS ABLE TO MAKE NEEDS KNOWN. THE PATIENT IS CURRENTLY UP IN RECLINER. PATIENT MEDICATED FOR PAIN X1 THIS SHIFT. COUGH SYRUP GIVEN X1. ON 4LPM OF O2 VIA NASAL CANNULA. NO TELE. PATIENT USES THE URINAL WITH ASSISTANCE. 1 PERSON ASSIST TO BSC. VSS. NO ACUTE CHANGES THIS SHIFT. CALL LIGHT WITHIN REACH.
[2021-10-14 05:13] LABS: Anion Gap 8 mmol/L (6-16); Blood Urea Nitrogen 13 mg/dL (8-24); Bun/Creatinine Ratio 26.1 (12.0-20.0); CO2, Blood 23 mmol/L (21-32); Calcium, Blood 8.7 mg/dL (8.5-10.1); Chloride, Blood 93 mmol/L (98-108); Glomerular Filtration Rate >60 (60-); Glucose, Blood 116 mg/dL (70-99); Potassium, Blood 3.7 mmol/L (3.5-5.5); Sodium, Blood 124 mmol/L (136-145)
--- NOTE | 2021-10-14 06:57 | NUR ---
PATIENT CONTINUES TO HAVE A DRY UNPRODUCTIVE COUGH. PRN COUGH MEDICATION GIVEN TO PATIENT. PRN ROXICODONE GIVEN FOR CHRONIC PAIN WITH LITTLE IMPROVEMENT. PATIENT STILL ON 4L NASAL CANNULA. PATIENT ABLE TO AMBULATE WITH ASSISTANCE TO BEDSIDE COMMODE. PATIENT HAS REPORTED MUSCLE SPAMS AND CRAMPS. RN ENCOURAGED MORE WATER INTAKE. WILL REPORT TO ONCOMING NURSE UPON ARRIVAL.
--- NOTE | 2021-10-14 10:00 | NUR ---
PT JUST RETURNED FROM HAVING AN US GUIDED PARACENTISIS, SAYS HE IS BREATHING MUCH EASIER NOW. CAN ACTUALLY TAKE A DEEP BREATH. 4.5 LITERS REMOVED.
--- NOTE | 2021-10-14 18:20 | NUR ---
PT ALERT AND ORIENTED, COOPERATIVE WITH CARE. ULTRA SOUND GUIDED PARACENTISIS COMPLETED TODAY, TOLERATED WELL. ALBUMIN IV GIVEN WHEN HE RETURNED TO ROOM. NO ACUTE CHANGES NOTED THIS SHIFT, WILL CONTINUE TO MONITOR AND REPORT TO ONCOMING RN.
--- NOTE | 2021-10-15 06:23 | NUR ---
SHIFT SUMMARY PATIENT ALERT AND ORIENTED. MEDICATED PER EMAR FOR PAIN. HAD NO COMPLAINTS OF SHORTNESS OF BREATH. NO ACUTE ISSUES NOTED OVERNIGHT. CALL LIGHT WITHIN REACH. REPORT GIVEN TO ONCOMING RN.
--- NOTE | 2021-10-15 18:27 | NUR ---
PT ALERT AND ORIENTED, COOPERATIVE WITH CARE. MEDICATED FOR PAIN X2 PER EMAR. PT DOES SAY HE FEELS IF ABD FLUID IS "COMING BACK". PT UP WITH P.T. TO BEDSIDE RECLINER. NO ACUTE CHANGES NOTED THIS SHIFT, WILL CONTINUE TO MONITOR AND REPORT TO ONCOMING RN.
[2021-10-16 07:14] LABS: Anion Gap 8 mmol/L (6-16); Blood Urea Nitrogen 11 mg/dL (8-24); Bun/Creatinine Ratio 20.3 (12.0-20.0); CO2, Blood 25 mmol/L (21-32); Calcium, Blood 8.6 mg/dL (8.5-10.1); Chloride, Blood 93 mmol/L (98-108); Creatinine, Blood 0.54 mg/dL (0.60-1.20); Glomerular Filtration Rate >60 (60-); Glucose, Blood 109 mg/dL (70-99); Potassium, Blood 3.5 mmol/L (3.5-5.5); Sodium, Blood 126 mmol/L (136-145)
--- NOTE | 2021-10-16 17:22 | NUR ---
SHIFT SUMMARY THE PATIENT IS ALERT AND ORIENTED X4, PLEASANT AND COOPERATIVE WITH CARE. PT UP IN RECLINER THIS SHIFT. PT MEDICATED X2 THIS SHIFT FOR PAIN. PT IS ON 2LPM O2 VIA NASAL CANNULA. PATIENT TO THE BSC 1 ASSIST. LACULOSE GIVEN PER OCT. LOOSE STOOLS NOTED THIS SHIFT. IV DRESSING CHANGED THIS SHIFT. VSS. NO ACUTE CHANGES. THIS NURSE WILL CONTINUE TO CARE FOR THE PATIENT UNTIL SHIFT REPORT IS GIVEN TO ONCOMING NURSE.
--- NOTE | 2021-10-17 00:45 | NUR ---
CALLED TO THE ROOM. PT STS THAT HE FELL OUT OF BED. PT FOUND SITTING UP ON SIDE OF THE BED. PT STS "YOU BETTER HAVE AN OXY READY". UNSURE TO HOW PT WOULD HAVE GOTTEN UP FROM THE FLOOR HE HAS SOME DIFFICULTY IN MOVING FROM THE BED TO BEDSIDE COMMODE WITHOUT A WALKER. I ASKED THE PT IF HE WAS INJURED. PT STS THAT HE DOES NOT BELIEVE SO. NO APPARENT INJURIES NOTED TO THE PT AT THIS TIME.
--- NOTE | 2021-10-17 03:00 | NUR ---
SHIFT SUMMARY NO ACUTE CHANGES TO PT CONDITION AT THIS TIME. PT HAS NOT CALLED WITH ANY COMPLAINTS. PT RESTING IN BED WITH THE CALL LIGHT WITHIN HIS REACH. PT STILL HAVING SOME DIARRHEA, PT CLEANED UP AND PUT BACK TO BED.
[2021-10-17 14:03] LABS: Influenza A, PCR NEGATIVE (NEGATIVE); Influenza B, PCR NEGATIVE (NEGATIVE); Resp Syncytial Virus, PCR NEGATIVE (NEGATIVE)
[2021-10-17 14:04] LABS: SARS-Cov-2 (COVID-19) PCR, MMC POSITIVE (NEGATIVE)
[2021-10-17] MEDS ORDERED: Vitamin B-Comp1 EAC7 PO (15:46)
[2021-10-17] MEDS ORDERED: FURO20 PO (15:46)
[2021-10-17] MEDS ORDERED: LACT10SY PO (15:47)
[2021-10-17] MEDS ORDERED: MIDO5 PO (15:47)
[2021-10-17] MEDS ORDERED: OXYC5 PO (15:48)
[2021-10-17] MEDS ORDERED: PREG50 PO (15:48)
[2021-10-17] MEDS ORDERED: SPIR50 PO (15:49)
--- NOTE | 2021-10-17 17:12 | NUR ---
PATIENT IS AWAKE,ALERT AND ORIENTED.DENIES PAIN. PATIENT TESTED POSITIVE FOR COVID. PATIENT IS CURRENTLY WAITING ON A BED A [facility]. PATIET ATE 50% OF LUNCH AND BREAKFAST.
[2021-10-18 05:16] LABS: Anion Gap 8 mmol/L (6-16); Blood Urea Nitrogen 12 mg/dL (8-24); Bun/Creatinine Ratio 22.9 (12.0-20.0); CO2, Blood 24 mmol/L (21-32); Calcium, Blood 8.6 mg/dL (8.5-10.1); Chloride, Blood 92 mmol/L (98-108); Creatinine, Blood 0.52 mg/dL (0.60-1.20); Glomerular Filtration Rate >60 (60-); Glucose, Blood 106 mg/dL (70-99); Potassium, Blood 3.7 mmol/L (3.5-5.5); Sodium, Blood 124 mmol/L (136-145)
--- NOTE | 2021-10-18 06:34 | NUR ---
Patient is alert and oriented x4. Complains of 7/10 pain on his abdomen, PRN pain medication given. Abdomen is distended. Patient had a few bowel movements and refused lactulose last night. Patient is able to ambulate independently to the commode from his chair. Patient will call if needing assistance and understands fall risk safety. He is in 4L oxygen, but can take it off and shows no distress or SOB. Call light within reach
--- NOTE | 2021-10-18 17:12 | NUR ---
PATIENT IS AWAKE,ALERT AND ORIENTED TIMES THREE. DENIES PAIN. PATIENT IS WAITING ON A BED FROM [facility]. NO ACUTE DISTRESS NOTED.
--- NOTE | 2021-10-19 04:25 | NUR ---
SHIFT SUMMARY PATIENT HAD NO ACUTE CHANGES. AXOX 3 AND SBA TO BSC. ON 3L O2 NC. SOB WITH EXERTION. USES URINAL AT BEDSIDE. PIV REMAINS INTACT. VSS/AFEBRILE. REPORTS GENERAL NEUROPATHY PAIN X TWO AND OXYCODONE 5 MG GIVEN PER EMAR. ENHANCED PRECAUTIONS: COVID-19+. CALL LIGHT IN REACH. BED IN LOWEST POSITION. WILL CONTINUE TO MONITOR UNTIL DAY SHIFT NURSE ASSUMES CARE.
--- NOTE | 2021-10-19 07:57 | NUR ---
AUDREY briceno handoff of patient care from AUDREY Frederick Patient was in bed asking to use the BSC. He transfered and RN assist him with toileting and back to bed. No further requests at this time
--- NOTE | 2021-10-19 17:39 | NUR ---
Patient was alert and orient. He was able to express his needs throughout the shift. Patent ambulated indep to the bathroom and he transferred without assistance. Patient continued on oxgen 3LPM for SOB. Patient HR was in 130s and RN informed provider about putting a telemonitor on but provider stated not at this time. Patient HR at rest was 80-90s, but with movement and activity it was 100s-120s. Patient appears to be in no distress. He did complain of pain and he recvd Oxycodone every 4 hours prn. Patient had no requests at this time
[2021-10-20 05:09] LABS: Anion Gap 9 mmol/L (6-16); Blood Urea Nitrogen 11 mg/dL (8-24); Bun/Creatinine Ratio 18.5 (12.0-20.0); CO2, Blood 23 mmol/L (21-32); Calcium, Blood 8.8 mg/dL (8.5-10.1); Chloride, Blood 93 mmol/L (98-108); Creatinine, Blood 0.59 mg/dL (0.60-1.20); Glomerular Filtration Rate >60 (60-); Glucose, Blood 124 mg/dL (70-99); Potassium, Blood 3.2 mmol/L (3.5-5.5); Sodium, Blood 125 mmol/L (136-145)
--- NOTE | 2021-10-20 08:00 | NUR ---
pt laying in bed watching tv, states hes having pain, roxicodone given as ordered, a/ox3, cooperative with care, follows commands well, lungs are clear dim in bases, resp even and unlabored, no cough noted, hrr, 2+ edema noted to left foot, 1+ to right, iv site is clear and patenet, btx4, high pitched, tinkeling sounds, abd is distended, nontender, voids without diff, skin has a blister on his buttocks, nancy canales, call light in reach.
--- NOTE | 2021-10-20 18:45 | NUR ---
pt had an uneventful day, complains of back pain, and general all over pain, asking for pain meds before they are due, he had a shower today, is able to ambulate into the bathroom, no acute changes this shift, call light in reach.
[2021-10-21 05:03] LABS: Hematocrit 32.5 % (37.0-53.0); Mean Corpuscular HGB 37.2 pg (26.0-34.0); Mean Corpuscular HGB Conc 36.9 g/dL (31.5-36.5); Mean Corpuscular Volume 101 fL (80-100); Mean Platelet Volume 9.6 fL (9.1-12.4); Platelet Count 197 K/mm3 (150-400); RDW Coefficient Variation 14.5 % (11.7-14.2); RDW Standard Deviation 53.6 fL (35.1-46.3); Red Blood Cell Count 3.23 M/mm3 (4.30-5.90); White Blood Cell Count 8.07 K/mm3 (4.00-11.30)
[2021-10-21 05:46] LABS: Anion Gap 10 mmol/L (6-16); Blood Urea Nitrogen 11 mg/dL (8-24); Bun/Creatinine Ratio 18.2 (12.0-20.0); CO2, Blood 23 mmol/L (21-32); Calcium, Blood 8.4 mg/dL (8.5-10.1); Chloride, Blood 93 mmol/L (98-108); Glomerular Filtration Rate >60 (60-); Glucose, Blood 111 mg/dL (70-99); Potassium, Blood 3.2 mmol/L (3.5-5.5); Sodium, Blood 126 mmol/L (136-145)
--- NOTE | 2021-10-21 06:18 | NUR ---
Patient is alert and oriented x4, ambulatory with walker. Distended abdomen, complains of pain. PRN medications given for pain, Patient is gets irritated when ambulating around the room, he feels uncomfortable. Room was dirty, called for cleaning. Patient appreciated it. Educated pt about calling when walking to the bathroom, patient insist in getting there independently. NPO for possible paracentesis. call light within reach.
--- NOTE | 2021-10-21 07:58 | NUR ---
AUDREY briceno handoff of patient care from AUDREY Cruz Patient was sitting in bed alert and awake. Patient had no requests at this time
--- NOTE | 2021-10-21 15:11 | NUR ---
Patient was alert and orient, he worked with PT today. He did not have the paracentesis today due to a dx of Covid. Patient was compliant with medications and had complaints of pain. He recvd prn Roxicodone. Patient was continent of bowel and bladder. He had a BM today. Continue to monitor safety and provide appropriate care for this patient
[2021-10-22 05:37] LABS: Anion Gap 10 mmol/L (6-16); Blood Urea Nitrogen 12 mg/dL (8-24); Bun/Creatinine Ratio 19.3 (12.0-20.0); CO2, Blood 20 mmol/L (21-32); Calcium, Blood 8.7 mg/dL (8.5-10.1); Chloride, Blood 94 mmol/L (98-108); Creatinine, Blood 0.62 mg/dL (0.60-1.20); Glomerular Filtration Rate >60 (60-); Glucose, Blood 113 mg/dL (70-99); Potassium, Blood 3.4 mmol/L (3.5-5.5); Sodium, Blood 124 mmol/L (136-145)
--- NOTE | 2021-10-22 06:51 | NUR ---
Patient is alert and oriented x4. complains of abdominal pain with ascites. Pain medication given. patient can ambulate with walker independently. redness on buttocks. patient requesting ice chips. all needs met. call light within each.
--- NOTE | 2021-10-22 07:07 | NUR ---
AUDREY recvd handoff of patient care from AUDREY Cruz Patient was in bathroom and only requests was a pain pill. This RN will review the EMAR and give the pain med accordingly.
--- NOTE | 2021-10-22 16:39 | NUR ---
Patient was alert and orient, his affect was restricted and mood was congruent. He was able to express his needs by using the call light. Patient was compliant with taking medications and did request prn Oxycodone for pain. Patient was incontinent of bowel and bladder and had multiple BMs today. He is awaiting a paracentesis prior to his discharge but have to test negative for Covid before the procedure is done. Patient is aware. He continued to ambulate indep to bathroom to take care of his needs. Cont to monitor
--- NOTE | 2021-10-23 05:03 | NUR ---
SHIFT SUMMARY: PT IS A/OX4. HE REMAINED ON 3L OF O2 DURING THE NOC SHIFT. THE PT WAS INDEPENDENT IN THE ROOM AND USED THE CALL LIGHT FOR NEEDS. HE DOES HAVE OXYCODONE 5-10MG AND THE 10MG IS DOES BETTER AT REDUCING HIS PAIN LEVELS. HE IS INDEPENDENT AND IS HAVING FREQUENT BMs D/T THE LACTULOSE. NO OTHER CHANGES TO REPORT THIS NOC SHIFT.
[2021-10-23 06:00] LABS: Anion Gap 10 mmol/L (6-16); Blood Urea Nitrogen 13 mg/dL (8-24); Bun/Creatinine Ratio 20.4 (12.0-20.0); CO2, Blood 22 mmol/L (21-32); Calcium, Blood 8.9 mg/dL (8.5-10.1); Chloride, Blood 94 mmol/L (98-108); Creatinine, Blood 0.64 mg/dL (0.60-1.20); Glomerular Filtration Rate >60 (60-); Glucose, Blood 118 mg/dL (70-99); Potassium, Blood 3.6 mmol/L (3.5-5.5); Sodium, Blood 126 mmol/L (136-145)
--- NOTE | 2021-10-23 07:38 | NUR ---
RN recvd handoff of paitent care from AUDREY Francis Patient was in bed asleep and appeared to be in no distress
--- NOTE | 2021-10-23 15:47 | NUR ---
Patient was alert and orient, his affect was restricted and mood was congruent. Patient was indep with his ADLs only asking for extra pullups and or pads. Patient was compliant with taking medications and recvd prn Oxycodone for pain. Patient was continent of bowel and bladder and had 2 BM today. Patient is waiting for paracentesis and then discharge. There's no solid plan until his Covid test is negative. Continue to monitor
--- NOTE | 2021-10-24 04:45 | NUR ---
SHIFT SUMMARY: PT IS A/OX3. HE HAS BEEN INDEPENDENT IN THE ROOM AND WILL USE THE CALL LIGHT FOR OTHER NEEDS. HER REMAINS ON 3L OF O2 AND IS NOT ON TELE. HE DID HAVE C/O OF ABDOMINAL PAIN/DISCOMFORT AND RECEIVED PRN Q4 10MG OF OXY AT 2330. THE PT DID REPORT HAVING SOME VISUAL HALLUCINATIONS IN THE ROOM--HE STATED THAT SOME SPIDERS WERE CLIMBING THE WALL IN THE BATHROOM. THE NURSE DID NOT SEE THE SPIDERS HE WAS REFERRING TO. NO OTHER CHANGES TO REPORT FOR THIS NOC SHIFT.
[2021-10-24 12:29] LABS: Hematocrit 35.9 % (37.0-53.0); Hemoglobin 12.9 g/dL (13.5-17.5)
[2021-10-24 12:50] LABS: Anion Gap 9 mmol/L (6-16); Blood Urea Nitrogen 18 mg/dL (8-24); CO2, Blood 20 mmol/L (21-32); Chloride, Blood 97 mmol/L (98-108); Creatinine, Blood 0.86 mg/dL (0.60-1.20); Glomerular Filtration Rate >60 (60-); Glucose, Blood 111 mg/dL (70-99); Potassium, Blood 3.8 mmol/L (3.5-5.5); Sodium, Blood 126 mmol/L (136-145)
--- NOTE | 2021-10-24 18:22 | NUR ---
SHIFT SUMMARY A&O X3. PATIENT HAS DELAYED RESPONSE TO QUESTIONS AND DIRECTION. PATIENT WILL FALL ASLEEP DURING CONVERSATION AND WHEN DOING A TASK. TREMORS PRESENT. POOR APPETITE TODAY. 1PA WITH WALKER TO RESTROOM. DISTENDED AND FIRM ABDOMEN. LOOSE BMS. COVID +, ON 4LNC, COUGH PRESENT. CONTINUALLY REMINDED TO PUT NC BACK ON. MULTIPLE ATTEMPTS TO START NEW IV UNSUCCESFUL. PARACENTESIS THIS AFTERNOON, 2.6L OFF. BED IN LOW POSITION WITH BED ALARM ON. WILL CONTINUE TO MONITOR.
--- NOTE | 2021-10-24 18:48 | NUR ---
ATTEMPTED IV INSERTION X3 WITH CHARGE NURSE. UNABLE TO GET NEW IV. OLD IV DRESSING CHANGED. NO REDNESS OR SWELLING PRESENT, BLOOD RETURN PRESENT AND FLUSHES WELL.
--- NOTE | 2021-10-25 05:16 | NUR ---
PT WAS MORE ORIENTED & AWAKE THIS NOC SHIFT; HE WAS STEADY ON HIS FEET FROM THE BED TO THE BSC W/ THE FWW. THE PT USED HIS CALL LIGHT FOR NEEDS WELL. THE PT IS ON 3-4L OF O2, BUT HAS TO BE REMINDED TO LEAVE THE NC ON. HE IS STILL DISTENDED/FIRM; SMALL BAND-AID IS CDI AND NO C/O OF NON-TOLERABLE PAIN. THE CALL LIGHT IS WITHIN REACH AND WE'LL CONTINUE TO MONITOR.
--- NOTE | 2021-10-25 18:22 | NUR ---
SHIFT SUMMARY PATIENT A&O 3-4, EASILY AGITATED. ON 4L NC, CONTINUALLY REMINDING PATIENT TO KEEP NC ON. PATIENT USING BSC, BM 3 THIS SHIFT. TREMORS PRESENT. PATIENT MORE ALERT TODAY. C/O PAIN 03/09, MEDICATED X2 PER OCT. HR TACHY T/O SHIFT, OTHER VSS. PATIENT CURRENTLY SITTING ON CHAIR WITH CALL LIGHT IN REACH. WILL CONTINUE TO MONITOR.
--- NOTE | 2021-10-26 05:50 | NUR ---
SHIFT SUMMARY: PT WAS MORE CALM AND ORIENTED THIS SHIFT. HE DID KEEP HIS 4L OF O2 ON AND SLEPT A GOOD PORTION OF THE NOC SHIFT. HE DID HAVE ONE BM THIS SHIFT AFTER THE DOSE CHANGE OF THE LACTULOSE. 10MG OF OXYCODONE IS MANAGING HIS PAIN, AND HE WENT ABOUT 9 HOURS IN BETWEEN PRN DOSES. HE STILL NEEDS A SBA W/ FWW TO THE BATHROOM D/T GENERALIZED WEAKNESS. THERE WERE NO OTHER ACUTE CHANGES TO REPORT THIS SHIFT.
--- NOTE | 2021-10-26 18:49 | NUR ---
PATIENT CAN BE ROOM AIR IN BED BUT NEEDS 2-4L NC TO RECOVER FROM ACTIVITY PATIENT ALERT AND OREIENTED BUT REQUIRED PROMPTS TO PAY ATTENTION TO THE TASK AT HAND. SWELLING IN ABD IS ABOUT THE SAME. NO NEW COMPLAINTS
[2021-10-27 04:47] LABS: Hematocrit 35.9 % (37.0-53.0); Hemoglobin 12.6 g/dL (13.5-17.5); Mean Corpuscular HGB 36.2 pg (26.0-34.0); Mean Corpuscular HGB Conc 35.1 g/dL (31.5-36.5); Mean Corpuscular Volume 103 fL (80-100); Mean Platelet Volume 9.5 fL (9.1-12.4); Platelet Count 206 K/mm3 (150-400); RDW Coefficient Variation 14.2 % (11.7-14.2); RDW Standard Deviation 53.9 fL (35.1-46.3); Red Blood Cell Count 3.48 M/mm3 (4.30-5.90); White Blood Cell Count 6.35 K/mm3 (4.00-11.30)
--- NOTE | 2021-10-27 05:18 | NUR ---
SHIFT SUMMARY 60 YR M ADMITTED ON 10/06/21 FOR HYPONATREMIS AND ALCOHOLIC CIRRHOSIS. FULL CODE. NO ACUTE CHANGES OVERNIGHT. PT C/O PAIN IN HIS ABDOMENT AT 7 ON A PAIN SCALE OF 1-10. HE WAS GIVEN PAIN MEDS PER EMAR. HE WAS ABLE TO AMBULATE TO THE BATHROOM W/ LITTLE ASSISTANCE, AND HAD A SMALL BM. HE APPEARS CONFUSED AND CHILDLIKE AT TIMES AND LUCID AT OTHER TIMES. HE HAS A SHORT ATTENTION SPAN AND CAN BE IRRITABLE.
[2021-10-27 05:34] LABS: Alanine Aminotransfer (ALT/SGP 80 U/L (12-78); Albumin, Blood 2.6 g/dL (3.4-5.0); Albumin/Globulin Ratio 0.6 (0.8-1.8); Alk Phos 175 U/L (50-136); Anion Gap 12 mmol/L (6-16); Aspartate Aminotrans (AST/SGOT 120 U/L (12-37); Bilirubin, Total 5.1 mg/dL (0.1-1.0); Blood Urea Nitrogen 12 mg/dL (8-24); Bun/Creatinine Ratio 18.9 (12.0-20.0); CO2, Blood 21 mmol/L (21-32); Calcium, Blood 8.7 mg/dL (8.5-10.1); Chloride, Blood 99 mmol/L (98-108); Creatinine, Blood 0.64 mg/dL (0.60-1.20); Globulin, Blood 4.6 g/dL (2.2-4.0); Glomerular Filtration Rate >60 (60-); Glucose, Blood 121 mg/dL (70-99); Potassium, Blood 3.1 mmol/L (3.5-5.5); Sodium, Blood 132 mmol/L (136-145); Total Protein, Blood 7.2 g/dL (6.4-8.2)
--- NOTE | 2021-10-27 22:33 | NUR ---
PT VERY SLOW TO FOLLOW DIRECTIONS AND UNCOOPERATIVE WITH INSTRUCTION, NEEDING MULTIPLE PROMPTS TO MOVE AND AMBULATE. AMBULATES SBA WITH WALKER, BUT HAS INTERMITTENT EPISODES OF DROWSINESS AND NEEDS 2P ASSIST.
--- NOTE | 2021-10-28 04:25 | NUR ---
AGRICULTURAL ECONOMIST SUMMARY ADMITTED FOR HYPONATREMIA AND ALCOHOLIC CIRRHOSIS. PT IS FULL CODE. HE IS COVID POSITIVE. PT CURRENTLY ON 4L BY NASAL CANNULA AND SATTING HIGH 90S WHEN HE WEARS HIS OXYGEN. HE IS UNCOOPERATIVE WITH CARE AT TIMES, NEEDING MULTIPLE PROMPTS TO FOLLOW DIRECTIONS. PT HAS ATTITUDE AND IS UPSET WITH STAFF PROMPTS. HE IS SBA WITH WALKER, BUT SLOW TO MOVE AROUND. HE WAS UPSET WITH ME AFTER GIVING HIM THE ORDERED LACTULOSE AND "HAVING TO POOP SO MUCH". PT HAS VERY DISTENDED ABDOMEN WITH SOME REDNESS TO THE LOWER PART OF THE ABDOMEN. HE COMPLAINED OF CHEST PAIN BUT SAYS IT WAS WORSE WITH PALPATION OF THE RED SKIN AROUND OLD CABG SCAR. PT BECOMING MORE ALERT THROUGHOUT THE SHIFT AFTER LACTULOSE. HE IS TO HAVE A PARACENTESIS TODAY AND IS AWAITING SNF PLACEMENT.
--- NOTE | 2021-10-28 17:29 | NUR ---
SHIFT SUMMARY PT AWAKE AT START OF SHIFT. CALLED FOR ASSIST TO BTHRM. 1P SBA USING FWW. PT MOVES VERY SLOWLY, GETTING DISTRACTED EASILY, BUT ABLE TO AMBULATE INDEPENDENTLY. ABD VERY DISTENDED; HX ETOH ABUSE AND CIRRHOSIS. SKIN JAUNDICE WITH SCATTERED SCABS. PT SCRATCHING L SIDE ABD. DR OSWALD IN TO SEE PT. KENALOG OINTMENT ORDERED. PT C/O PAIN AND REDNESS TO MIDSTERNUM AREA; BACTROBAN OINTMENT ORDERED. PARACENTESIS ORDERED THIS AFTERNOON; PT TO BE WORKED IN TOMORROW. LACTULOSE GIVEN; PT HAVING SEVERAL BM'S TODAY. PT STILL WAITING FOR BED AT SNF WHEN AVAILABLE. CALL LT IN REACH. DENIED FURTHER NEEDS AT THIS TIME.
--- NOTE | 2021-10-29 18:36 | NUR ---
SHIFT SUMMARY PT AWAKE AT START OF SHIFT, WANTING TO HAVE PARACENTESIS AND THEN GO HOME. IMAGING HERE EARLY TO ASSESS AMOUNT OF FLUID FOR PROCEDURE. PT THEN TAKEN DOWN FOR PARACENTESIS; 4L REMOVED. PHARMACY NOTIFIED OF FLUID AMT AND THEN ORDERED ALBUMIN; OBTAINED AND GIVEN PER EMAR. PT THEN REQUESTED TO D/C TO HOME. DR OSWALD NOTIFIED WELL WINDOWS SERVER SUPPORT TECHNICIAN. D/C ORDERS PLACED. [facility]. HARD COPIES SENT WITH PT. PT'S MOM HERE FOR P/U. PT TAKEN DOWN VIA W/C BY GYPSUM ROOFER WITH BELONGINGS IN HAND.
== END 2021-10-29 15:16 | disposition home or self-care (01) | DRG 432 ==
LOC: ER 21:40 → PCU 23:57 → MEDS 10-12 11:49 → ENPENDDIS 10-17 14:54 → MEDS 10-17 23:15
PROVIDERS: Emergency Medicine; Internal Medicine; ADMIT Internal Medicine
PROC: 0W9G3ZZ Drainage of Peritoneal Cavity, Percutaneous Approach (ICD-10-PCS; principal; 2021-10-14)
PROC: 0W9G3ZZ Drainage of Peritoneal Cavity, Percutaneous Approach (ICD-10-PCS; 2021-10-24)
PROC: 0W9G3ZZ Drainage of Peritoneal Cavity, Percutaneous Approach (ICD-10-PCS; 2021-10-29)
DX: K70.31 Alcoholic cirrhosis of liver with ascites (principal); U07.1 COVID-19; E87.1 Hypo-osmolality and hyponatremia; I50.32 Chronic diastolic (congestive) heart failure; F10.139 Alcohol abuse with withdrawal, unspecified; K76.6 Portal hypertension; E87.2 Acidosis; D69.6 Thrombocytopenia, unspecified; J44.9 Chronic obstructive pulmonary disease, unspecified; D64.9 Anemia, unspecified; Z91.81 History of falling; K72.90 Hepatic failure, unspecified without coma; L89.156 Pressure-induced deep tissue damage of sacral region; Z86.14 Personal history of Methicillin resistant Staphylococcus aureus infection; Z88.8 Allergy status to other drugs, medicaments and biological substances; Z88.1 Allergy status to other antibiotic agents; Z88.6 Allergy status to analgesic agent; F17.210 Nicotine dependence, cigarettes, uncomplicated; Z90.49 Acquired absence of other specified parts of digestive tract; Z72.821 Inadequate sleep hygiene; Z20.822 Contact with and (suspected) exposure to COVID-19; R60.1 Generalized edema; R74.01 Elevation of levels of liver transaminase levels; I95.9 Hypotension, unspecified; R63.0 Anorexia; M79.605 Pain in left leg; M79.604 Pain in right leg
CPT/HCPCS: 0241U; 36415; 49083; 71045; 76705; 80048; 80053; 81003; 82140; 82550; 82553; 83605; 83735; 84100; 84439; 84443; 84484; 85014; 85018; 85025; 85027; 85610; 90686; 92610; 93005; 93010; 94640; 94760; 97110; 97116; 97162; 97166; 97530; 97535; 99285-25; A9270; C9113; G0480; J1940; J3010; J7030; J7040; J7050; J7060; P9041; P9046

== ENCOUNTER 2021-11-12 16:23 | Emergency (ER) | payer OTHER ==
[~2021-11-12] VITALS: Ht 185.4 cm; Wt 99.8 kg
[~2021-11-12 16:23] MED LIST changes: +FURO20 PO; +MIDO5 PO; +OXYC5 PO; +PREG50 PO; +Vitamin B-Comp1 EAC7 PO
[2021-11-12] MEDS ORDERED: ACET80 PO (16:49)
[2021-11-12] MEDS ORDERED: ALLO300 PO (16:50)
[2021-11-12] MEDS ORDERED: ACET325 PO (16:50)
[2021-11-12 17:14] LABS: BASOPHILS ABSOLUTE AUTO 0.06 K/mm3 (0.00-0.23); BASOPHILS PERCENT AUTO 1 % (0-2); EOSINOPHILS ABSOLUTE AUTO 0.15 K/mm3 (0.00-0.68); EOSINOPHILS PERCENT AUTO 2 % (0-6); Hematocrit 37.5 % (37.0-53.0); IMMATURE GRAN ABSOLUTE AUTO 0.02 K/mm3 (0.00-0.10); IMMATURE GRAN PERCENT AUTO 0 % (0-1); LYMPHOCYTES ABSOLUTE AUTO 1.18 K/mm3 (0.84-5.20); LYMPHOCYTES PERCENT AUTO 19 % (21-46); MONOCYTES ABSOLUTE AUTO 0.81 K/mm3 (0.16-1.47); MONOCYTES PERCENT AUTO 13 % (4-13); Mean Corpuscular HGB 34.9 pg (26.0-34.0); Mean Corpuscular HGB Conc 34.7 g/dL (31.5-36.5); Mean Corpuscular Volume 101 fL (80-100); Mean Platelet Volume 10.1 fL (9.1-12.4); NEUTROPHILS ABSOLUTE AUTO 4.08 K/mm3 (1.96-9.15); NEUTROPHILS PERCENT AUTO 65 % (41-73); Platelet Count 226 K/mm3 (150-400); RDW Coefficient Variation 13.5 % (11.7-14.2); RDW Standard Deviation 50.1 fL (35.1-46.3); Red Blood Cell Count 3.72 M/mm3 (4.30-5.90)
[2021-11-12 17:25] LABS: Alanine Aminotransfer (ALT/SGP 44 U/L (12-78); Albumin, Blood 2.4 g/dL (3.4-5.0); Albumin/Globulin Ratio 0.5 (0.8-1.8); Alk Phos 168 U/L (50-136); Anion Gap 7 mmol/L (6-16); Aspartate Aminotrans (AST/SGOT 62 U/L (12-37); Bilirubin, Total 2.8 mg/dL (0.1-1.0); Blood Urea Nitrogen 10 mg/dL (8-24); Bun/Creatinine Ratio 12.3 (12.0-20.0); CO2, Blood 22 mmol/L (21-32); Calcium, Blood 8.6 mg/dL (8.5-10.1); Chloride, Blood 109 mmol/L (98-108); Creatinine, Blood 0.81 mg/dL (0.60-1.20); Globulin, Blood 5.3 g/dL (2.2-4.0); Glomerular Filtration Rate >60 (60-); Glucose, Blood 104 mg/dL (70-99); Potassium, Blood 3.3 mmol/L (3.5-5.5); Sodium, Blood 138 mmol/L (136-145); Total Protein, Blood 7.7 g/dL (6.4-8.2)
[2021-11-12] MEDS ORDERED: Bactrim Ds Tab1 EACH PO (18:15)
[2021-11-25] MEDS ORDERED: XARELTO15 MG PO (17:38)
== END 2021-11-12 20:05 | disposition home or self-care (01) ==
LOC: ER 16:23
PROVIDERS: Emergency Medicine
DX: L03.313 Cellulitis of chest wall (principal); Z88.5 Allergy status to narcotic agent; Z88.8 Allergy status to other drugs, medicaments and biological substances; J44.9 Chronic obstructive pulmonary disease, unspecified; Z79.899 Other long term (current) drug therapy; F17.210 Nicotine dependence, cigarettes, uncomplicated
CPT/HCPCS: 71045; 80053; 83880; 85025; 93005; 93010; 96374; 96375; 99284-25; A9270; J2270; J2405

== ENCOUNTER 2021-11-28 13:28 | Observation (INO) | payer OTHER ==
[~2021-11-28] VITALS: Ht 195.6 cm; Wt 131.0 kg
[~2021-11-28 13:28] MED LIST changes: +ACET325 PO; +ACET80 PO; +Bactrim Ds Tab1 EACH PO; +XARELTO15 MG PO
[2021-11-28 14:57] LABS: BASOPHILS ABSOLUTE AUTO 0.04 K/mm3 (0.00-0.23); BASOPHILS PERCENT AUTO 1 % (0-2); EOSINOPHILS ABSOLUTE AUTO 0.11 K/mm3 (0.00-0.68); EOSINOPHILS PERCENT AUTO 2 % (0-6); Hematocrit 39.9 % (37.0-53.0); Hemoglobin 13.5 g/dL (13.5-17.5); IMMATURE GRAN ABSOLUTE AUTO 0.03 K/mm3 (0.00-0.10); IMMATURE GRAN PERCENT AUTO 0 % (0-1); LYMPHOCYTES ABSOLUTE AUTO 1.05 K/mm3 (0.84-5.20); LYMPHOCYTES PERCENT AUTO 14 % (21-46); MONOCYTES ABSOLUTE AUTO 0.95 K/mm3 (0.16-1.47); MONOCYTES PERCENT AUTO 13 % (4-13); Mean Corpuscular HGB 34.3 pg (26.0-34.0); Mean Corpuscular HGB Conc 33.8 g/dL (31.5-36.5); Mean Corpuscular Volume 101 fL (80-100); Mean Platelet Volume 9.4 fL (9.1-12.4); NEUTROPHILS PERCENT AUTO 70 % (41-73); Platelet Count 183 K/mm3 (150-400); RDW Coefficient Variation 14.6 % (11.7-14.2); RDW Standard Deviation 53.8 fL (35.1-46.3); Red Blood Cell Count 3.94 M/mm3 (4.30-5.90); White Blood Cell Count 7.28 K/mm3 (4.00-11.30)
[2021-11-28 15:31] LABS: Alanine Aminotransfer (ALT/SGP 33 U/L (12-78); Albumin, Blood 2.6 g/dL (3.4-5.0); Albumin/Globulin Ratio 0.5 (0.8-1.8); Alk Phos 224 U/L (50-136); Anion Gap 10 mmol/L (6-16); Aspartate Aminotrans (AST/SGOT 62 U/L (12-37); Blood Urea Nitrogen 8 mg/dL (8-24); CO2, Blood 22 mmol/L (21-32); Calcium, Blood 8.8 mg/dL (8.5-10.1); Chloride, Blood 104 mmol/L (98-108); Creatinine, Blood 0.73 mg/dL (0.60-1.20); Globulin, Blood 5.5 g/dL (2.2-4.0); Glomerular Filtration Rate >60 (60-); Glucose, Blood 101 mg/dL (70-99); Potassium, Blood 3.4 mmol/L (3.5-5.5); Sodium, Blood 136 mmol/L (136-145); Total Protein, Blood 8.1 g/dL (6.4-8.2)
--- NOTE | 2021-11-28 16:40 | NUR ---
ED Palliative Care Consult Spoke with Dr Resendez and discussed case. 60 year old male with End Stage Alcoholic Cirrhosis to the ED requesting placement with hospice services. Pt resting on gurney upon arrival. Pt A&OX4. Significant edema noted on BLLE and ascites. Pt resports liveing with her elderly mother and brother. Pt reports needing assistance with bathing, dressing, and experiences intermittent incontinence of bowel and bladder. Pt reports intermittent poor appetite and on some days will only eat a piece of toast for the entire day. Assessed Pt's understanding of his health. Pt states "my liver is shot". Pt reports receiving 4 paracentesis, and states the frequency is increasing with last approximately 3 days ago. Discussed hospice with Pt confirming wishes for hospice. Assessed Pt's understanding of hospice with Pt stating "hospice is for people who are ready to ". Educated on hospice philosophy with V/U made by Pt. Pt reports his mother is too frail and his brother is too unreliable to assist him with care. He reports needing transport to take him for paracentesis. Pt is requesting assistance with placement and hospice services. Spoke with Palliative Care AUDREY Vieyra at the [facility] who confirms [facility] will pay for placement with contracted facility on hospice services for veterans. Spoke with ED Kj Batista and discussed case. Lynne will submit request with [facility] for acceptance to facility and will discuss hospice agencies to choose from with Pt. Spoke with ED AUDREY Delcid and discussed case. PPS 40% ADLs 4/6 Pt high risk for readmission and is agreeable for hospice services with placement Palliative Care will remain available.
--- NOTE | 2021-11-29 15:23 | NUR ---
Late Entry from 11/29/2021 at 0830: Received referral from nurse child caregiver private home (Francy Mancini) on 11/28/2021. Patient is to discharge with orders for hospice and family elected [facility]. Gathered supporting documentation for referral (face sheet, labs, imaging, progress notes, palliative care note, and H&P) and sent to [facility] Clinical Coordinator (Autumn Rubio) for review of hospice appropriateness and ability to accept patient onto service post discharge. Will await further information from hospice vocational nurse lvn regarding the above. Marie Loredo Referral Liaison
--- NOTE | 2021-11-29 15:25 | NUR ---
Received notification from [facility] Intake HEALTH PSYCHOLOGIST (Stacey Briceño) that patient is hospice appropriate and able to be accepted onto service post discharge. Once patient has a discharge location and date known, this song writer will meet with patient to further discuss the above. Will continue to monitor and follow for discharge. Marie Loredo Referral Liaison
--- NOTE | 2021-11-30 03:50 | NUR ---
SADLER PT HAS SADLER CATHETER ORDER. PT DECLINES TO HAVE SADLER PLACED AT THIS TIME. PT IS A/OX4 AND IS HAS BEEN VOIDING IN URINAL INDEPENDENTLY WITHOUT DIFFICULTY.
--- NOTE | 2021-11-30 04:47 | NUR ---
SHIFT SUMMARY PT ER ADMIT YESTERDAY EVENING. ESLD, COMFORT MEASURES, NEEDING PLACEMENT. PT MEDICATED FOR PAIN PRN PER EMAR. PT A/OX4, PLESANT AND COOPERATIVE WITH CARE. PT IS ABLE TO REPOSITION HIMSELF INDEPENDENTLY IN BED, AND USES URINAL INDEPENDENTLY. PT WITH ANASARCA, AND ASCITIES. JAUNDICED. RESP E/U ON RA. PT MAKES NEEDS KNOWN. NO ACUTE CHANGES OVERNIGHT, BED IN LOWEST POSITION, CALL LIGHT WITHIN REACH.
[2021-11-30 09:02] LABS: International Normalized Ratio 1.35; Prothrombin Time Results 13.9 Sec (9.7-11.5)
[2021-11-30 09:10] LABS: Alanine Aminotransfer (ALT/SGP 28 U/L (12-78); Albumin, Blood 2.1 g/dL (3.4-5.0); Albumin/Globulin Ratio 0.5 (0.8-1.8); Alk Phos 186 U/L (50-136); Anion Gap 4 mmol/L (6-16); Aspartate Aminotrans (AST/SGOT 49 U/L (12-37); Bilirubin, Total 2.5 mg/dL (0.1-1.0); Blood Urea Nitrogen 8 mg/dL (8-24); Bun/Creatinine Ratio 14.6 (12.0-20.0); CO2, Blood 25 mmol/L (21-32); Calcium, Blood 8.6 mg/dL (8.5-10.1); Chloride, Blood 104 mmol/L (98-108); Creatinine, Blood 0.55 mg/dL (0.60-1.20); Globulin, Blood 4.6 g/dL (2.2-4.0); Glomerular Filtration Rate >60 (60-); Glucose, Blood 121 mg/dL (70-99); Potassium, Blood 3.8 mmol/L (3.5-5.5); Sodium, Blood 133 mmol/L (136-145); Total Protein, Blood 6.7 g/dL (6.4-8.2)
--- NOTE | 2021-11-30 10:42 | NUR ---
CALLED DR ANDERSEN RE POSS SURGERY. STATES NOT TODAY. OKAY TO EAT. MAKE NPO MIDNITE SAT PM. POSS FOR SUN. WILL ADVISE.
--- NOTE | 2021-11-30 10:44 | NUR ---
DR BOOTH CALLED 0730. MAKE NPO FOR POSS SURG TO PLACE PORT. DR ANDERSEN NOTIFIED BY DR BOOTH.
--- NOTE | 2021-11-30 17:23 | NUR ---
PT ALERT AND ORIENTED X4. PLEASANT AND COOPERATIVE. TACHYCARDIC- 130'S. NO MURMURS PRESENT. LUNGS CLEAR BILATERALLY, UNLABORED BREATHING, ON ROOM AIR. ABDOMEN DISTENDED AND FIRM. TENDER TO TOUCH. BOWEL SOUNDS IN ALL QUADRANT. LAST BOWEL MOVEMENT WAS YESTERDAY PER PATIENT. +1 ASSIST TO BEDSIDE COMMODE, URINAL AT BEDSIDE. NPO DUE TO POSSIBLE SURGICAL INTERVENTION. SKIN BREAKDOWN ON COCCYX. +4 PITTING EDEMA TO LOWER LEGS BILATERALLY. BED IN LOW POSITION, CALL LIGHT WITHIN REACH, CALLS APPROPRIATLY.
--- NOTE | 2021-11-30 18:44 | NUR ---
PT IN PLEASANT MOOD AND COOPERATIVE. WAS NPO DUE TO POSSIBLE SURGICAL INTERVENTION. SPOKE TO DOCTOR NATHALY WHO SAID PROCEDURE WILL MOST LIKELY BE TOMORROW. NPO AFTER MIDNIGHT. PO MEDICATIONS ORDERED PER DOCTOR EVEN THOUGH PATIENT IS ON COMFORT CARE. MORPHINE GIVEN MULTIPLE TIMES FOR PAIN IN ABDOMEN AND LOWER EXTREMITES. PT STATES TREATED PAIN ADEQUETLY. CALL LIGHT IN REACH, BED IN LOW POSITION AND CALLS APPROPRIATLY.
--- NOTE | 2021-11-30 19:14 | NUR ---
PT PLEASNT TODAY. PENDING LIKELY PLEUREX DRAIN PLACEMENT TOMORROW PER DR ANDERSEN. NPO MIDNITE. PAIN MANAGED WITH AVAIL MEDS TO HIS SATISFACTION. BED IN LOW POSITION, [place] IN [facility] [place], CALLS APROP
--- NOTE | 2021-11-30 22:56 | NUR ---
COMFORT: PATIENT IS ASSISTED WITH REPOSITIONING IN BED AND ASSISTE WITH ORAL CARE.
--- NOTE | 2021-11-30 23:00 | NUR ---
COMFORT: PATIENT IS REPORTING PAIN 7-8/10 FROM ABD. DOWN LEGS. PRN MORHINE IS GIVEN.
--- NOTE | 2021-12-01 00:11 | NUR ---
COMFORT: PATIENT HAD GOOD EFFECT FROM MORPHINE GIVEN FOR PAIN. ASSISTED TO THE BR WITH AX1 AND CANE TO VOID. LARGE AMT. OF FLATUS BUT NO BM GAIT IS WEAK AND PATIENT REACHES FOR FURNITURE. WOUND CARE IS COMPLETED.
--- NOTE | 2021-12-01 04:54 | NUR ---
COMFORT: PATIENT REPORTS PAIN IN ABD. RADIATING DOWN LEGS 8-9/10, ORAL MORPHINE IS GIVEN WITH A SIP OF WATER.
--- NOTE | 2021-12-01 10:04 | NUR ---
DR ANDERSEN IN TO SEE PT. EXPECTS TO TAKE TO PROCEDURE IN 2-3 HRS. OKAY GIVE PO PAIN MED. IF NEEDS.
--- NOTE | 2021-12-01 13:59 | NUR ---
1340- IN PACU FOR PRE OP. BILAT LEGS EDEMATOUS AND REDDENED. ABD LARGE AND FIRM AND REDDENED OVER ENTIRE RIGHT SIDE. NUMEROUS OLD BRUISES AND SKIN TEARS ON ARMS.
--- NOTE | 2021-12-01 14:03 | NUR ---
1400- TO OR VIA GURNEY.
--- NOTE | 2021-12-01 14:08 | NUR ---
TO DAY SURG AT 1336
--- NOTE | 2021-12-01 14:12 | NUR ---
PT IS IN DAY SURGERY AT THIS TIME.
--- NOTE | 2021-12-01 14:49 | NUR ---
12/01/21 1449 Shayna Juarez [address] G[address] DR[address] LYNNE, INTRAOPERATIVELY AT 1410. PULLED FROM ANESTHESIA PYXIS. SEE DOCTOR'S NOTES.
--- NOTE | 2021-12-01 15:13 | NUR ---
REPORT FROM PACU, ROD. 100 MCG FRNTANYL. PLEUREX DRAIN PLACED. NO AMOUNT OF FLUID LISTED REMOVED. ROD TO CHECK AND ADVISE IF POSSIBLE. PT ON R/A, 100%, SLIGHTLY TACHY AT 126/MIN. A/O, PLEASANT, PT CONTINUES TO FALL ASLEEP PERIODICALLY.
--- NOTE | 2021-12-01 15:20 | NUR ---
DR ANDERSEN NOTES SHOW 6L FLUID REMOVED. CALLED DR WU TO SEE IF NEED ALBUMIN. DR TO REVIEW AND MAKE ORDERS IF REQUIRED.
--- NOTE | 2021-12-01 15:55 | NUR ---
PT BACK TO ROOM AT 1535 FROM SURGICAL PROCEDURE. ALERT AND ORIENTED X4. PLEASANT AND COOPERATIVE WITH CARE. VITAL SIGNS STABLE. H/R IN 120'S, NO TELE OR MURMURS PRESENT. LUNGS CLEAR BILATERLLY. PT EXPRESSES NO PAIN AT THIS TIME. ABDOMEN DISTENDED, TENDER AND SOFT. PE ELECTRICAL ENGINEER STATED 6 LITERS WAS REMOVED FROM ABDOMEN. PT AMBULATED TO BED WITH ASSISTANCE FROM STAFF. PT GIVEN ICE WATER. NO DIFFICULTIES SWALLOWING AT THIS TIME. WILL CONTINUE TO MONITOR VITAL SIGNS. PT IS VERY DROWSY AND FALLS ASLEEP IN BETWEEN CARE AT THIS TIME. CALL PLACED TO PALLIATIVE CARE TO TEACH PATIENT AND FAMILY ABOUT PLEUREX DRAIN. STATED THEY WILL MAKE VISIT TO PATIENT TOMORROW AND MAKE CONTACT WITH FAMILY. CALL LIGHT IN REACH, BED IN LOW POSITION, CALLS APPROPRIATLY.
--- NOTE | 2021-12-01 17:00 | NUR ---
PT IN PLEASANT MOOD. SLEEPY, BUT EASILY ROUSABLE. FALLS ASLEEP IN BETWEEN CARE. PLEUREX PLACED TODAY BY DR ANDERSEN. HAS NOT ATE ANYTHING TODAY, BUT WAS ABLE TO DRINK WATER AFTER SURGICAL PROCEDURE WITHOUT DIFFICULTY. NO C/O PAIN. ABDOMEN IS DESTENDED, TENDER AND SOFT. BILATERAL LOWER +4 PITTING EDEMA. NO PO MEDS WERE GIVEN OF YET DUE TO SURGICAL PROCEDURE AND NO C/O PAIN. CALL LIGHT IN REACH, CALLS APPROPRIATLEY AND BED IN LOW POSITION.
--- NOTE | 2021-12-01 18:10 | NUR ---
PT VITAL SIGNS STABLE. GIVEN DINNER TRAY. TOLERATES FOOD INTAKE WELL. NO SWALLOWING PROBLEMS. MS GIVEN FOR PAIN IN THE ABDOMEN AND LEGS. MEDICATED PER EMAR. CALL LIGHT IN REACH, BED IN LOW POSITION AND CALLS APPROPRIATLEY.
--- NOTE | 2021-12-01 19:09 | NUR ---
review of pt with charge nurse will have team meeting tomorrow.
--- NOTE | 2021-12-02 01:50 | NUR ---
COMFORT: PATIENT IS ASSISTED TO BATHROOM TO VOID, WITH GB, CANE AND AX1. SNACK WAS GIVEN. PATIENT IS IN GOOD SPIRITS AND PAIN IS RATED AT 6/10 WITH ACTIVITY.
--- NOTE | 2021-12-02 01:58 | NUR ---
COMFORT: PATIENT IS RATING ABD/ LEG PAIN 10/10, MEDICATED PER MAR AND ASSISTED WITH REPOSITIONING IN THE BED.
--- NOTE | 2021-12-02 02:02 | NUR ---
COMFORT: PATIENT IS REPORTING ABD/LEG PAIN 8-9/10, TO EARLY TO GIVE PRN MORPHINE. DR HARRIS IS NOTIFIED AND ORDERS TO CHANGE MORPHINE TO Q 2H PRN IS OBTAINED AND MED IS GIVEN. DRESSING ON ABD. DRAIN SITE IS SATURATED. DRSG IS CHANGED.
--- NOTE | 2021-12-02 05:51 | NUR ---
SHIFT SUMMARY: MORE CONSISTANT PAIN CONTROL IS ACHIEVED WITH INCREASED FREQUENCY. PATIENT IS VOIDING LARGE AMTS. OF FABBY URINE. ABLE TO USE URINAL IN BED WITH DECREASED ABD. GIRTH.
--- NOTE | 2021-12-02 08:26 | NUR ---
PT AWAKE, DOZES OFF AT TIMES, PT MEDICATED FOR PAIN. PT SITTING UP EATING BREAKFAST
--- NOTE | 2021-12-02 10:47 | NUR ---
PT DOZES OFF AND ON PAIN REMAINS A CONSTANT PER THE PT
--- NOTE | 2021-12-02 15:39 | NUR ---
CHARGE NURSE YAKOV RN DRAINED 2L PARATINEAL FLUID THE PT TOLERATED IT WELL. PT MEDICATED FOR PAIN
--- NOTE | 2021-12-02 15:43 | NUR ---
[facility]. PT UP TO THE RECLINER AT THE BEDSIDE BED LINENS CHANGED PT WAS A 2 PERSON ASSIST UP
--- NOTE | 2021-12-02 15:46 | NUR ---
PT APPEARS TO BE SLEEPING AT THIS TIME. CALL LIGHT IN REACH. WILL CONTINUE TO MONITOR AND ASSESS FOR CHANGES
--- NOTE | 2021-12-02 16:32 | NUR ---
PT RESITING IN BED APPEARS TO BE SLEEPING AT THIS TIME
--- NOTE | 2021-12-02 17:23 | NUR ---
PT REPORTED 9/10 PAIN. MEDICATED WITH 15 MG MORPHINE AND APPLIED FENTANYL PATCH ON RIGHT SHOULDER AFTER REMOVING PREVIOUS ON LEFT SHOULDER.
--- NOTE | 2021-12-02 18:00 | NUR ---
STUDENT NURSE ASSESSMENTS THIS RN WAS PRESENT DURING AND AGREE WITH THE STUDENT EXCELLENCE SPECIALIST AND DOCUMENTATION
--- NOTE | 2021-12-02 18:20 | NUR ---
PT IS AWAKE EATING DINNER. PT REPORTS PAIN IN MID ABD DOWN THROUGH HIS LEGS CONTINUOSLY T/O THE DAY WITH NO CHANGE AFTER PAIN MEDICATIONS. GREATER PAIN IN THE RIGHT ABD, PT HAS SOME REDNESS ON HIS RIGHT SIDE ABD. PERITINEAL FLUID WAS DRAINED TODAY. THE PT SLEPT MOST OF THE DAY. CALL LIGHT IN REACH. WILL CONTINUE TO MINITOR FOR CHANGES. [facility]
--- NOTE | 2021-12-02 20:48 | NUR ---
COMFORT: PATIENT IS COMFORTABLE AT THIS TIME, REPOSITIONED. ICE CHIPS GIVE.
--- NOTE | 2021-12-02 22:24 | NUR ---
COMFORT: PATIENT RATES ADB/LEG PAIN /10, MORHINE PRN IS GIVEN. GOWN AND BRIEF CHANGED. DRSG FROM OLD TAP SITE CHANGED DUE TO DRAINAGE.
--- NOTE | 2021-12-03 01:31 | NUR ---
COMFORT: PATIENT IS COMFORTABLE, REGUESTING SANDWICH WHICH IS GIVEN.
--- NOTE | 2021-12-03 02:11 | NUR ---
COMFORT: PATIMARYSOL REPORTS BLE AND ABD. PAIN /10. PRN MORPHINE IS GIVEN.
--- NOTE | 2021-12-03 04:01 | NUR ---
COMFORT: PATIENT CONTINUES TO HAVE GOOD EFFECT FROM ATIVAN AND MORPHINE.
--- NOTE | 2021-12-03 04:13 | NUR ---
COMFORT: PATIENT IS REPORTING ABD. PAIN AND IS RESTLESS, CAN'T SLEEP. PRN VALIUM AND EMOTIONAL SUPPORT ARE GIVEN.
--- NOTE | 2021-12-03 06:13 | NUR ---
SHIFT SUMMARY: PATIENT CONTINUES TO REPORT ABD/BLE PAIN -04/09. MEDICATED PER OCT WITH GOOD EFFECT. NO BM'S IN [address] BOOTH WAS NOTIFIED AND ORDER TO INCREASE LACTOSE DOSE WAS OBTAINED. AWAITING RESULTS. PATIENT HAS NOT BEEN OOB THIS SHIFT. VOIDING IN THE URINAL.
--- NOTE | 2021-12-03 08:01 | NUR ---
PT IS AWAKE ALERT, CONTINUES TO REPORT PAIN AM MED GIVEN WILL CONTINUE TO MONITOR AND ASSESS FOR CHANGES
[2021-12-03 09:04] LABS: Influenza A, PCR NEGATIVE (NEGATIVE); Influenza B, PCR NEGATIVE (NEGATIVE); Resp Syncytial Virus, PCR NEGATIVE (NEGATIVE); SARS-Cov-2 (COVID-19) PCR, MMC NEGATIVE (NEGATIVE)
--- NOTE | 2021-12-03 10:07 | NUR ---
MEDICATED FOR PAIN, PT IS AWAKE ALERT EATING BREAKFAST
--- NOTE | 2021-12-03 12:02 | NUR ---
PT AWAKE RESTING IN BED WATCHING TV, WILL CONTINUE TO MONITOR AND ASSESS FOR CHANGES
--- NOTE | 2021-12-03 14:13 | NUR ---
MEDICATED FOR PAIN PER PT REQUEST. PT DOZES OFF FREQUANTLY, WILL CONTINUE TO MONITOR FOR CHANGES, GAVE LACTULOSE
--- NOTE | 2021-12-03 18:52 | NUR ---
AYUSH MADERA APPEARS TO BE COMFORTABLE AT THIS TIME
--- NOTE | 2021-12-03 18:53 | NUR ---
PT AWAKE / ALERT DOZES OFF FREQUANTLY. THE PTS LACTULOSE DOSAGE WAS INCREASED TODAY HOWEVER THE PT STILL HAS NOT HAD A BM TODAY. THE PTS COCCYX DRESSING WAS CHANGED TODAY PT TOLERATED WELL. PT APPEARS TO BE BREATHING EASILY ON RA. CALL LIGHT IN REACH. EXPECT DISCHARGE TOMORROW
--- NOTE | 2021-12-04 06:21 | NUR ---
SHIFT SUMMARY A/OX2, ABLE TO USE CALL LIGHT APPROPRIATELY. PT REQUIRES ASSISTANCE WITH URINAL. C/O MODERATE ABD PAIN, MEDICATED PER EMAR. PLEURX DRESSING CHANGED THIS SHIFT. BED IN LOWEST POSITION WITH CALL LIGHT IN REACH. WILL CONTINUE TO MONITOR AND REPORT TO ONCOMING RN.
--- NOTE | 2021-12-04 07:46 | NUR ---
pt awake alert medicated for pain this am
--- NOTE | 2021-12-04 10:38 | NUR ---
PT MEDICATED FOR PAIN, PT DOZES OFF FREQUANTLY
[2021-12-04] MEDS ORDERED: Morphine Sulfat15 MG PO (17:31)
--- NOTE | 2021-12-04 18:39 | NUR ---
PT DISCHARGED THE PT VERBALIZED UNDERSTANDING OF THE DC INSTRUCTIONS. THE PT HAD 3L PERITONEAL FLUID REMOVED PRIOR TO DC AND TOLERATED IT WELL. PT WAS GIVEM A 15MG MSIR BEFORE DC THAT WAS SCANNNED ,HOWEVER, DID NOT GET DOCUMENTED DUE TO THE DC BEING ACTIVATED AND THE MED LIST CLOSED PRIOR TO THE SUBMIT BUTTON BEING PUSHED. THE PT WAS TRANSFERED VIA WHEELCHAIR ACCOMPANIED BY THE GOVERNMENT AFFAIRS RESEARCHER TO MEET HIS FAMILY AT THE DOOR
== END 2021-12-04 18:17 | disposition hospice, home (50) ==
LOC: ER 13:28 → MEDS 11-29 13:29
PROVIDERS: Internal Medicine; Physician Assistant; Surgery; ADMIT Internal Medicine
PROC: 0W9F00Z Drainage of Abdominal Wall with Drainage Device, Open Approach (ICD-10-PCS; principal; 2021-12-01 13:30)
DX: K70.31 Alcoholic cirrhosis of liver with ascites (principal); K76.6 Portal hypertension; F10.21 Alcohol dependence, in remission; F17.210 Nicotine dependence, cigarettes, uncomplicated; J44.9 Chronic obstructive pulmonary disease, unspecified; I50.32 Chronic diastolic (congestive) heart failure; G89.29 Other chronic pain; M54.9 Dorsalgia, unspecified; Z88.6 Allergy status to analgesic agent; Z88.1 Allergy status to other antibiotic agents; Z88.5 Allergy status to narcotic agent; Z88.8 Allergy status to other drugs, medicaments and biological substances; Z66 Do not resuscitate; Z51.5 Encounter for palliative care; E46 Unspecified protein-calorie malnutrition; Z68.32 Body mass index [BMI] 32.0-32.9, adult; E88.09 Other disorders of plasma-protein metabolism, not elsewhere classified; Z20.822 Contact with and (suspected) exposure to COVID-19
CPT/HCPCS: 0241U; 36415; 71046; 80053; 83880; 84484; 85025; 85610; 93005; 93010; 94760; 96365; 96374; 96375; 96376; 99285-25; A9270; C1729; G0378; J0690; J1885; J2270; J2405; J2765; J3010; J7120; P9046